=== PATIENT | male | born 1965 | race Caucasian/White ===

== ENCOUNTER → 2016-12-20 | Outpatient (CLI) | payer OTHER ==
--- NOTE | 2016-12-20 10:48 | Diagnostic Imaging Report ---
INDICATION: Knee pain COMPARISON: 01/03/2014 FINDINGS: 3 views of the right knee are obtained. No acute fracture, malalignment or osseous destructive process is seen. Joint spaces are preserved. There is minimal tricompartmental marginal spurring. The soft tissues appear unremarkable. IMPRESSION: Minimal degenerative changes. No acute abnormality is demonstrated. Dictated by: Dictated on workstation # [id number]
== END ==
LOC: RAD 09:21
PROVIDERS: ATTEND Pediatrics Neonatal-Perinatal Medicine
DX: Z02.71 Encounter for disability determination (principal); M25.561 Pain in right knee; E66.01 Morbid (severe) obesity due to excess calories
CPT/HCPCS: 73560

== ENCOUNTER 2019-09-08 11:41 | Emergency (ER) | payer SELFPAY ==
[~2019-09-08] VITALS: Ht 177 cm; Wt 136.0 kg
[2019-09-08 13:05] LABS: BILIRUBIN,URINE NEGATIVE (NEGATIVE); CLARITY,URINE CLEAR; COLOR,URINE YELLOW; GLUCOSE, URINE (UA) 3+ (NEGATIVE); KETONES,URINE 1+ (NEGATIVE); LEUKOCYTE ESTERASE ,URINE NEGATIVE (NEGATIVE); NITRITE,URINE NEGATIVE (NEGATIVE); PROTEIN,URINE NEGATIVE (NEGATIVE)
[2019-09-08 13:17] LABS: BACTERIA,URINE NEGATIVE /HPF; RBC,URINE RARE /HPF
[2019-09-08] MEDS ORDERED: NS IV 1000 ML 1,000 ML IV SCH (14:09)
[2019-09-08] MEDS ORDERED: inSUlin (REGULAR) HUMAN 1 UNIT/0.01 ML (CHARGE PER UNIT) SC STA (14:09)
[2019-09-08 14:31] LABS: BASOPHILS % (AUTO) 0 % (0-10); EOSINOPHILS # (AUTO) 0.1 10^3/uL (0.0-0.3); EOSINOPHILS % (AUTO) 0 % (0-10); HEMATOCRIT 44 % (40-54); HEMOGLOBIN 15.5 G/DL (13.3-17.7); LYMPHOCYTES # (AUTO) 1.8 X 10^3 (1.0-4.0); LYMPHOCYTES % (AUTO) 15 % (12-44); MEAN CORPUSCULAR HEMOGLOBIN 32 PG (25-34); MEAN CORPUSCULAR HGB CONC 35 G/DL (32-36); MEAN CORPUSCULAR VOLUME 91 FL (80-99); MEAN PLATELET VOLUME 11.3 FL (7.4-10.4); MONOCYTES # (AUTO) 0.7 X 10^3 (0.0-1.0); MONOCYTES % (AUTO) 6 % (0-12); NEUTROPHILS % (AUTO) 78 % (42-75); PLATELET COUNT 150 10^3/uL (130-400); RED CELL DISTRIBUTION WIDTH 12.1 % (10.0-14.5); WHITE BLOOD COUNT 11.6 10^3/uL (4.3-11.0)
[2019-09-08 14:50] LABS: ALBUMIN 4.2 GM/DL (3.2-4.5); CALCIUM 9.3 MG/DL (8.5-10.1); CREATININE SERUM 1.31 MG/DL (0.60-1.30); POTASSIUM 5.3 MMOL/L (3.6-5.0); TOTAL PROTEIN 7.9 GM/DL (6.4-8.2)
[2019-09-08 15:41] VITALS: BP 180/110
--- NOTE | 2019-09-08 15:46 | ED GU-Male ---
General Chief Complaint: - Urinary Stated Complaint: LOST CONTROL OF BLADDER Nursing Triage Note: THE PT IS AMBULATORY TO THE ROOM WITHOUT DIFFICULTY. NO DISTRESS IS SEEN ON ARRIVAL. LOC IS NORMAL FOR THE PT. THE PT C/O THE PAST FIVE DAY'S LOSS OF BLADDER CONTROLE. History of Present Illness Date Seen by Provider: Sep 08, 2019 Time Seen by Provider: 13:20 Initial Comments 53-year-old male presents for polyuria with incontinence, the patient also experienced polydipsia. He was diagnosed prediabetes, and he does take metformin daily, however he stopped taking it when his urinary symptoms presented 3-4 days ago. No hx of DKA or insulin use. He is trying to switch his care to the [facility] in [place]. He does not have a glucometer. He has been drinking more fruit juices, in the last 2 days. No history of prostate problems. Timing/Duration: getting worse Severity/Quality: mild Modifying Factors: Improves With Urinating Associated Symptoms: denies symptoms; No abdominal pain, No diaphoresis, No dysuria, No fever/chills, No loss of bladder control, No lower back pain, No lumps, No mass, No nausea/vomiting, No nocturia, No polyuria, No swelling, No syncope, No urinary frequency, No other Allergies and Home Medications Allergies Coded Allergies: No Known Drug Allergies (Unverified , 09/08/19) Patient Home Medication List Home Medication List Reviewed: Yes Review of Systems Review of Systems Constitutional: no symptoms reported, see HPI Gastrointestinal: no symptoms reported, see HPI; No loss of appetite Genitourinary: see HPI, frequency All Other Systemes Reviewed Negative Unless Noted: Yes Past Ufhybjd-Wqasef-Ijqlgm Hx Past Med/Social Hx: Reviewed Nursing Past Med/Soc Hx Patient Social History Recent Foreign Travel: No Contact w/Someone Who Travel: No Recent Infectious Disease Expo: No Physical Abuse: No Sexual Abuse: No Mistreated: No Fear: No Physical Exam Vital Signs Vital Signs - First Documented 09/08/19 09/08/19 13:02 15:41 Temp 36.8 Pulse 108 Resp 18 B/P (MAP) 183/110 (134) Pulse Ox 96 Capillary Refill : Less Than 3 Seconds Height, Weight, BMI Height: '" Weight: lbs. oz. kg; 43.00 BMI Method: General Appearance: WD/WN, no apparent distress, obese HEENT: PERRL/EOMI, normal ENT inspection, TMs normal, pharynx normal Neck: non-tender, full range of motion, supple, normal inspection Cardiovascular: normal peripheral pulses, regular rate, rhythm Respiratory: chest non-tender, lungs clear, normal breath sounds Gastrointestinal: normal bowel sounds, non tender, soft Neurologic/Psychiatric: no motor/sensory deficits, alert, normal mood/affect, oriented x 3 Skin: normal color, warm/dry Progress/Results/Core Measures Suspected Sepsis Recent Fever Within 48 Hours: No Infection Criteria Present: None New/Unexplained Altered Menta: No Sepsis Screen: No Definite Risk SIRS Temperature: Pulse: 108 Respiratory Rate: 18 Laboratory Tests 09/08/19 14:25: White Blood Count 11.6H Blood Pressure 183 /110 Mean: 134 Laboratory Tests 09/08/19 14:25: Creatinine 1.31H, Platelet Count 150, Total Bilirubin 1.0 Results/Orders Lab Results Laboratory Tests Test 09/08/19 12:52 09/08/19 13:49 09/08/19 14:25 09/08/19 15:29 Range/Units Urine Color YELLOW Urine Clarity CLEAR Urine pH 6.0 5-9 Urine Specific [place] <=1.005 1.016-1.022 Urine Protein NEGATIVE NEGATIVE Urine Glucose (UA) 3+ H NEGATIVE Urine Ketones 1+ H NEGATIVE Urine Nitrite NEGATIVE NEGATIVE Urine Bilirubin NEGATIVE NEGATIVE Urine Urobilinogen 0.2 < = 1.0 MG/DL Urine Leukocyte Esterase NEGATIVE NEGATIVE Urine RBC (Auto) NEGATIVE NEGATIVE Urine RBC RARE /HPF Urine WBC NONE /HPF Urine Squamous Epithelial Cells NONE /HPF Urine Crystals NONE /LPF Urine Bacteria NEGATIVE /HPF Urine Casts NONE /LPF Urine Mucus NEGATIVE /LPF Urine Culture Indicated NO Glucometer > 600 *H 567 *H 70-110 MG/DL White Blood Count 11.6 H 4.3-11.0 10^3/uL Red Blood Count 4.85 4.35-5.85 10^6/uL Hemoglobin 15.5 13.3-17.7 G/DL Hematocrit 44 40-54 % Mean Corpuscular Volume 91 80-99 FL Mean Corpuscular Hemoglobin 32 25-34 PG Mean Corpuscular Hemoglobin Concent 35 32-36 G/DL Red Cell Distribution Width 12.1 10.0-14.5 % Platelet Count 150 130-400 10^3/uL Mean Platelet Volume 11.3 H 7.4-10.4 FL Neutrophils (%) (Auto) 78 H 42-75 % Lymphocytes (%) (Auto) 15 12-44 % Monocytes (%) (Auto) 6 0-12 % Eosinophils (%) (Auto) 0 0-10 % Basophils (%) (Auto) 0 0-10 % Neutrophils # (Auto) 9.0 H 1.8-7.8 X 10^3 Lymphocytes # (Auto) 1.8 1.0-4.0 X 10^3 Monocytes # (Auto) 0.7 0.0-1.0 X 10^3 Eosinophils # (Auto) 0.1 0.0-0.3 10^3/uL Basophils # (Auto) 0.0 0.0-0.1 10^3/uL Sodium Level 118 *L 135-145 MMOL/L Potassium Level 5.3 H 3.6-5.0 MMOL/L Chloride Level 85 L 98-107 MMOL/L Carbon Dioxide Level 18 L 21-32 MMOL/L Anion Gap 15 H 5-14 MMOL/L Blood Urea Nitrogen 18 7-18 MG/DL Creatinine 1.31 H 0.60-1.30 MG/DL Estimat Glomerular Filtration Rate 57 BUN/Creatinine Ratio 14 Glucose Level 728 *H 70-105 MG/DL Calcium Level 9.3 8.5-10.1 MG/DL Corrected Calcium 9.1 8.5-10.1 MG/DL Total Bilirubin 1.0 0.1-1.0 MG/DL Aspartate Amino Transf (AST/SGOT) 24 5-34 U/L Alanine Aminotransferase (ALT/SGPT) 33 0-55 U/L Alkaline Phosphatase 77 40-136 U/L Total Protein 7.9 6.4-8.2 GM/DL Albumin 4.2 3.2-4.5 GM/DL My Orders Orders - LUIS ANTONIO VALENTINE Ua Culture If Indicated (09/08/19 12:10) Accucheck Stat ONCE (09/08/19 13:46) Cbc With Automated Diff (09/08/19 14:09) Comprehensive Metabolic Panel (09/08/19 14:09) Ed Iv/Invasive Line Start (09/08/19 14:09) Ns Iv 1000 Ml (Sodium Chloride 0.9%) (09/08/19 14:09) Insulin (Regular) Human (Humulin R (Per (09/08/19 14:09) Accucheck Stat ONCE (09/08/19 15:19) Vital Signs/I&O 09/08/19 09/08/19 13:02 15:41 Temp 36.8 36.5 Pulse 108 100 Resp 18 18 B/P (MAP) 183/110 (134) 180/110 Pulse Ox 96 Capillary Refill : Less Than 3 Seconds Blood Pressure Mean: 134 Point of Care Testing Finger Stick Blood Glucose: 567 Blood Glucose Action Taken: rn notified Progress Note : Time: 13:20 Progress Note Patient seen and evaluated, will obtain UA and reevaluate. 1400 Accucheck > 600.Will obtain CBC, CMP and NS 1 L per IV. 1430 Glucose 728, continues to urinate every 20-30 min, requesting ice or water. Will give Regular Insulin 10 Units 1515 patient reports to be feeling better, less urination. Accucheck 567. Spoke with patient about needing to resume his Metformin and follow up early next week to obtain glucometer and adjust management of DM. 1530 discharge instructions and return precautions reviewed with patient. Dietary changes, fruit juices discouraged. Departure Impression Primary Impression: Hyperglycemia Disposition: HOME, SELF-CARE Condition: Stable Departure-Patient Inst. Decision time for Depature: 15:30 Referrals: CYRUS PULIDO MD (PCP/Family) Primary Care Physician Patient Instructions: Diabetes and Diet, Hyperglycemia, Adult (DC) Add. Discharge Instructions: Reviewed the your metformin, start taking one tablet twice daily. Limit all high sugar products, fruit juices, and stick to a low-carb low sugar diet. Drink 16 ounces of water every 2 hours while awake. [facility] Return to the emergency department for new, urgent health care needs. All discharge instructions reviewed with patient and/or family. Voiced understanding. LUIS ANTONIO VALENTINE Sep 08, 2019 15:45
== END 2019-09-08 16:02 | disposition home or self-care (01) ==
LOC: EDUNIT# 11:41 → ER 11:43
DX: R73.03 Prediabetes (principal); Z79.84 Long term (current) use of oral hypoglycemic drugs; Z91.14 Patient's other noncompliance with medication regimen
CPT/HCPCS: 36415; 80053; 81000; 82962; 85025; 96372

== ENCOUNTER 2019-09-25 18:38 | Emergency (ER) | payer SELFPAY ==
[~2019-09-25] VITALS: Ht 177.8 cm; Wt 140.0 kg
[2019-09-25 18:46] VITALS: BP 165/104
--- NOTE | 2019-09-25 19:10 | ED General ---
General Chief Complaint: Glucose Problems Stated Complaint: HIGH BS LEVELS Nursing Triage Note: PT AMBULATE TO ROOM 06 WITH C/O HYPERGLYCEMIA. PT STATES HIS HOME METER WOULD NOT READ BECAUSE GLUCOSE WAS TOO HIGH. PT STATES HE HAD LUNCH AT [facility]. Nursing Sepsis Screen: No Definite Risk Source of Information: Patient Exam Limitations: No Limitations History of Present Illness Date Seen by Provider: Sep 25, 2019 Time Seen by Provider: 19:08 Initial Comments To ER with hyperglycemia. Recently diagnosed with diabetes, blood sugar at home was found to be over 600 according his machine. 2 readings here have been consistently in the 250-70 range. He has no symptoms was just concerned about the numbers. Timing/Duration: 1/2 Hour Severity: Mild Associated Systoms: Denies Symptoms Allergies and Home Medications Allergies Coded Allergies: No Known Drug Allergies (Unverified , 09/08/19) Patient Home Medication List Home Medication List Reviewed: Yes Review of Systems Review of Systems Constitutional: see HPI EENTM: see HPI Respiratory: no symptoms reported Cardiovascular: no symptoms reported Genitourinary: no symptoms reported Musculoskeletal: no symptoms reported Skin: no symptoms reported Psychiatric/Neurological: No Symptoms Reported Hematologic/Lymphatic: No Symptoms Reported Immunological/Allergic: no symptoms reported Past Wnmomds-Khasqa-Zjbwtv Hx Patient Social History Alcohol Use: Rarely Uses Recreational Drug Use: Yes Drug of Choice: POT Smoking Status: Current Everyday Smoker 2nd Hand Smoke Exposure: Yes Recent Foreign Travel: No Contact w/Someone Who Travel: No Recent Infectious Disease Expo: No Recent Hopitalizations: No Physical Abuse: No Sexual Abuse: No Mistreated: No Fear: No Seasonal Allergies Seasonal Allergies: Yes Past Medical History Surgeries: Yes (RIGHT KNEE X3) Appendectomy, Orthopedic Respiratory: No Cardiac: Yes Heart Attack Neurological: No Sexually Transmitted Disease: No HIV/AIDS: No Genitourinary: No Gastrointestinal: Yes Hepatitis Musculoskeletal: Yes Arthritis, Fractures Endocrine: Yes Diabetes, Insulin dep, Hypothyroidsim HEENT: No Loss of Vision: Denies Hearing Impairment: Denies Cancer: No Psychosocial: Yes Anxiety Integumentary: No Blood Disorders: No Physical Exam Vital Signs Vital Signs - First Documented 09/25/19 18:46 Temp 36.4 Pulse 101 Resp 18 B/P (MAP) 165/104 (124) O2 Delivery Room Air Capillary Refill : Less Than 3 Seconds Height, Weight, BMI Height: '" Weight: lbs. oz. kg; 44.00 BMI Method: General Appearance: No Apparent Distress, WD/WN Eyes: Bilateral Eye Normal Inspection, Bilateral Eye PERRL, Bilateral Eye EOMI HEENT: PERRL/EOMI, TMs Normal Respiratory: No Accessory Muscle Use, No Respiratory Distress Cardiovascular: Regular Rate, Rhythm, Normal Peripheral Pulses Gastrointestinal: Normal Bowel Sounds, Non Tender, Soft Extremity: Normal Capillary Refill, Normal Inspection Neurologic/Psychiatric: Alert, Oriented x3 Progress/Results/Core Measures Suspected Sepsis Recent Fever Within 48 Hours: No Infection Criteria Present: None New/Unexplained Altered Menta: No Sepsis Screen: No Definite Risk SIRS Temperature: Pulse: 101 Respiratory Rate: 18 Blood Pressure 165 /104 Mean: 124 Results/Orders Lab Results Laboratory Tests Test 09/25/19 18:49 Range/Units Glucometer 285 H 70-110 MG/DL Vital Signs/I&O 09/25/19 18:46 Temp 36.4 Pulse 101 Resp 18 B/P (MAP) 165/104 (124) O2 Delivery Room Air Capillary Refill : Less Than 3 Seconds Blood Pressure Mean: 124 Point of Care Testing Finger Stick Blood Glucose: 285 Blood Glucose Action Taken: rn notified Departure Impression Primary Impression: Diabetes Qualified Codes: E11.69 - Type 2 diabetes mellitus with other specified complication; Z79.4 - lobsterman (current) use of insulin Disposition: 01 HOME, SELF-CARE Condition: Stable Departure-Patient Inst. Decision time for Depature: 19:09 Referrals: CYRUS PULIDO MD (PCP/Family) Primary Care Physician Patient Instructions: Diabetes Type 2 (DC) Add. Discharge Instructions: All discharge instructions reviewed with patient and/or family. Voiced understanding. GRISELDA MORALES APRN Sep 25, 2019 19:09
--- OUTSIDE RECORDS SUMMARY | 2019-10-01 04:57 | XMS REPORT ---
Author Author Mike Valentino Organization [facility] Address [address] [place] [address] Care Team Providers Care Cow Washer Name Role Phone RHETT Valentino Unavailable PROBLEMS Type Condition ICD9-CM Code ROV65-JA Code Onset Dates Condition S tatus SNOMED Code Problem Anxiety disorder, unspecified F41.9 Active 023398062 Problem Hypothyroidism, unspecified E03.9 Ac tive 80142492 Problem Allergic rhinitis J30.9 Active 61 681004 Problem Hyperlipidemia, unspecified hyperlipidemia type E7 8.5 Active 68644471 Problem Chronic hepatitis C without hepatic coma B18.2 Active 117872014 Problem Type 2 diabetes mellitus without complications E11 .9 Active 166127202 Problem Essential hypertension I10 Active 07185356 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 Active 050983649 Problem Obesity E66.9 Active 384953311 Problem Reactive depression F32.9 Active 97476976 Problem Carpal tunnel syndrome of right wrist G56.01 Active 737110347627006 Problem Type 2 diabetes mellitus wit hout complication, without long-term current use of insulin E11.9 Active 333508946 Problem Type 2 diabetes mellitus wit hout complication, without long-term current use of insulin E11.9 Active 779611217 ALLERGIES No Information ENCOUNTERS Encounter Location Date Diagnosis [place] [id number] [place] [address] Aug, Type 2 diabetes mellitus without complic ations E11.9 and 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 [place] [address] [address] 18 Aug, 2019 Type 2 diabetes mellitus without complic ation, without long-term current use of insulin E11.9 [place] [address] [address] 14 Aug, 2019 Essential hypertension I10 and Hypothyro idism, unspecified E03.9 [facility] [address] [id number] [place] [address] 13 Aug, 2019 [facility] [address] [facility] [place] [address] Jun, [facility] [address] [address] Apr, [place] [address] [place] [id number] [place] [address] Mar, Essential hypertension I10 ; Hypothyroid ism, unspecified E03.9 ; Prediabetes R73.03 ; Allergic rhinitis J30.9 and Type 2 diabetes mellitus without complication, without long-term current use of insulin E11.9 [facility] [address] [facility] [place] [id number] Jan, Dental examination Z01.20 and Caries K02 .9 [facility] [place] [id number] [place] [address] Aug, BMI 45.0-49.9, adult Z68.42 ; Chest congestion R09.89 ; Acute URI J06.9 and Morbid obesity E66.01 [facility] [place] [id number] [place] [address] Jul, Cough due to bronchospasm J9 8.01 ; Shortness of breath R06.02 ; Obesity E66.9 and Acute bronchitis, viral J20.8 [facility] [place] [id number] [place] [address] Jul, [place] [id number] [place] [address] Apr, [place] [address] [address] Feb, Elevated glucose R73.09 ; Carpal tunnel syndrome of right wrist G56.01 ; Prediabetes R73.03 and BMI 40.0-44.9, adult Z68.41 [place] [id number] [address] Oct, Essential hypertension I10 ; Hypothyroid ism, unspecified E03.9 and Dysfunction of left eustachian tube H69.82 [place] [address] [address] Sep, Chronic hepatitis C without hepatic coma B18.2 and Hypothyroidism, unspecified E03.9 [place] [address] [address] Sep, Hypothyroidism, unspecified E03.9 [place] [address] [address] May, Chronic hepatitis C without hepatic coma B18.2 [place] [address] [address] May, [place] [address] [address] Apr, Hypothyroidism, unspecified E03.9 and Ch ronic hepatitis C without hepatic coma B18.2 [place] [address] [address] Apr, Chronic hepatitis C without hepatic coma B18.2 [place] [address] [address] Mar, Reactive depression F32.9 and Hypothyroi dism, unspecified E03.9 [place] [address] [address] Feb, Reactive depression F32.9 and Anxiety di sorder, unspecified F41.9 [place] [address] [address] Feb, Chronic hepatitis C without hepatic coma B18.2 [place] [address] [address] Jan, Chronic hepatitis C without hepatic coma B18.2 [place] [address] [address] November, Encounter for immunization Z23 and Chron ic hepatitis C without hepatic coma B18.2 [facility] [address] [address] November, [facility] [address] [address] Oct, Chronic hepatitis C without hepatic coma B18.2 [facility] [address] [address] Sep, [facility] [address] [address] Aug, Gastroenteritis K52.9 [facility] [address] [address] Aug, [facility] [address] [address] Aug, [facility] [address] [address] Aug, [facility] [address] [address] Aug, [facility] [address] [address] Jul, Encounter for immunization Z23 ; Sinus t achycardia R00.0 and Chronic hepatitis C without hepatic coma B18.2 [facility] [address] [address] Jun, Chronic hepatitis C without hepatic coma B18.2 [facility] [address] [address] Jun, Chronic hepatitis C without hepatic coma B18.2 [facility] [address] [address] May, Anxiety disorder, unspecified F41.9 [facility] [address] [address] May, Bronchitis J40 and Eustachian tube dysfu nction, bilateral H69.83 [place] [address] [address] May, Chronic hepatitis C without hepatic coma B18.2 [place] [address] [address] May, Chronic hepatitis C without hepatic coma B18.2 [place] [address] [address] May, [place] [address] [address] Apr, Abnormal LFTs R79.89 [place] [address] [address] 14 Apr, 2016 Abnormal LFTs R79.89 [place] [address] [address] Apr, Obesity E66.9 ; Hypothyroidism, unspecif ied E03.9 and Hyperlipidemia, unspecified hyperlipidemia type E78.5 [place] [address] [address] Apr, Obesity E66.9 ; Hypothyroidism, unspecif ied E03.9 and Hyperlipidemia, unspecified hyperlipidemia type E78.5 [place] [address] [address] Apr, Visit for TB skin test Z11.1 [place] [address] [address] November, Obesity E66.9 [place] [address] [address] Oct, Obesity E66.9 [place] [address] [address] Oct, Essential hypertension I10 ; Hypothyroid ism, unspecified E03.9 and Obesity E66.9 [place] [address] [address] Jun, [place] [address] [address] May, Essential hypertension I10 ; Allergic rh initis J30.9 ; Hypothyroidism, unspecified E03.9 and Otitis media, unspecified, bilateral H66.93 [place] [address] [address] May, Unspecified hypothyroidism 244.9 and Scr eening for hypertension V81.1 [place] [address] [address] May, [address] [address] Apr, Hypothyroidism, unspecified E03.9 and An xiety disorder, unspecified F41.[address] [address] Feb, Essential hypertension, benign 401.[address] [address] Feb, Unspecified hypothyroidism 244.9 and Scr eening for hypertension V81.[address] [address] Feb, Essential hypertension, benign 401.1 ; A nxiety state, unspecified 300.00 and Rash of groin 782.[address] [address] Feb, [address] [address] Dec, Essential hypertension, benign 401.1 ; A nxiety state, unspecified 300.00 and Rash of groin 782.[address] [address] November, [address] [address] Oct, [place] [id number] Oct, [facility] [address] [id number] [place] [address] Sep, [facility] [address] [id number] [place] [address] Sep, [facility] [address] [id number] [place] [address] Aug, [facility] [address] [id number] [place] [address] Aug, [facility] [address] [id number] [place] [address] Jul, [facility] [address] [id number] [place] [address] Jul, [facility] [id number] [place] [address] Jun, [facility] [id number] [place] [address] Jun, [facility] [address] [id number] [place] [address] Jun, [facility] [id number] [place] [address] Jun, [facility] [address] [id number] [place] [address] Jun, [facility] [id number] [place] [address] Jun, [facility] [address] [id number] [place] [address] Jun, [facility] [id number] [place] [address] Jun, [facility] [address] [id number] [place] [address] May, [facility] [id number] [place] [address] May, [facility] [address] [id number] [place] [address] Feb, [facility] [address] [facility] [id number] [place] [address] Feb, [facility] [address] [facility] [id number] [place] [address] Feb, [facility] [address] [id number] [place] [address] Feb, [facility] [address] [facility] [id number] [place] [address] Feb, [facility] [address] [id number] [place] [address] Feb, [facility] [address] [id number] [place] [address] Feb, [facility] [address] [id number] [place] [address] Feb, [facility] [address] [id number] [place] [address] Feb, [facility] [address] [facility] [id number] [place] [address] Feb, [facility] [address] [id number] [place] [address] Feb, [facility] [address] [id number] [place] [address] Feb, [facility] [address] [facility] [id number] [place] [address] Jan, [facility] [address] [id number] [place] [address] Jan, [facility] [address] [id number] [place] [address] Jan, [facility] [address] [id number] [place] [address] Jan, [facility] [address] [id number] [place] [address] Dec, [facility] [address] [facility] [id number] [place] [address] Dec, [facility] [address] [facility] [id number] [place] [address] Oct, [facility] [address] [facility] [id number] [place] [address] Oct, [facility] [address] [id number] [place] [address] Oct, [facility] [address] [facility] [id number] [place] [address] Oct, [facility] [address] [id number] [place] [address] Oct, [facility] [address] [id number] [place] [address] Oct, [facility] [address] [id number] [place] [address] Oct, [facility] [address] [facility] [id number] [place] [address] Aug, [facility] [address] [id number] [place] [address] Aug, [facility] [address] [id number] [place] [address] Jul, [facility] [address] [id number] [place] [address] Jul, [facility] [address] [id number] [place] [address] Jul, [facility] [address] [id number] [place] [address] Jul, [facility] [address] [id number] [place] [address] Jun, [facility] [address] [id number] [place] [address] Jun, [facility] [address] [facility] [place] [address] May, [facility] [address] [id number] [place] [address] May, [facility] [address] [id number] [place] [address] May, [facility] [address] [id number] [place] [address] Oct, [facility] [address] [facility] [place] [address] Oct, IMMUNIZATIONS No Known Immunizations SOCIAL HISTORY Never Assessed REASON FOR VISIT PLAN OF CARE VITAL SIGNS MEDICATIONS No Known Medications RESULTS No Results PROCEDURES No Known procedures INSTRUCTIONS MEDICATIONS ADMINISTERED No Known Medications MEDICAL (GENERAL) HISTORY Type Description Date Medical History Hearing loss Medical History Acid reflux Medical History Inguinal hernia at -1965 Medical History Depression Medical History HTN Medical History ANXIETY Medical History diabetes Surgical History Left ear surgery Surgical History Appendectomy Surgical History Left knee ACL/MCL repair Surgical History HERNIA SURGERY
--- OUTSIDE RECORDS SUMMARY | 2019-10-01 04:58 | XMS REPORT ---
Author Author Mike Valentino Organization [facility] [place] Address [address] [place] [address] Care Team Providers Care Cigar Brander Name Role Phone RHETT Valentino Unavailable PROBLEMS Type Condition ICD9-CM Code ZHB29-YG Code Onset Dates Condition S tatus SNOMED Code Problem Hypothyroidism, unspecified E03.9 Ac tive 76828821 Problem Obesity E66.9 Active 553947847 Problem Essential hypertension I10 Active 23619192 Problem Prediabetes R73.03 Active 30367897 2 Problem Anxiety disorder, unspecified F41.9 Active 402257539 Problem Carpal tunnel syndrome of right wrist G56.01 Active [id number] Problem Allergic rhinitis J30.9 Active 61 636369 Problem Hyperlipidemia, unspecified hyperlipidemia type E7 8.5 Active 42485877 Problem Chronic hepatitis C without hepatic coma B18.2 Active 593087015 Problem Reactive depression F32.9 Active 44931169 ALLERGIES No Information ENCOUNTERS Encounter Location Date Diagnosis [facility] [place] [address] [id number] [address] [place] [id number] Feb, [facility] [address] [id number] [address] [place] [address] [id number] Jan, Dental examination Z01.20 an d Caries K02.9 [facility] [address] [facility] [id number] [address] [place] [address] Aug, BMI 45.0-49.9, adult Z68.42 ; Chest congestion R09.89 ; Acute URI J06.9 and Morbid obesity E66.01 [facility] [address] [facility] [id number] [address] [place] [address] Jul, Cough due to bronchospasm J9 8.01 ; Shortness of breath R06.02 ; Obesity E66.9 and Acute bronchitis, viral J20.8 [facility] [address] [facility] [id number] [address] [place] [address] Jul, [facility] [place] [address] [facility] [id number] [address] [place] [address] Apr, [facility] [place] [address] [facility] [id number] [address] [place] [address] Feb, Elevated glucose R73.09 ; Ca rpal tunnel syndrome of right wrist G56.01 ; Prediabetes R73.03 and BMI 40.0-44.9, adult Z68.41 [facility] [place] [address] [facility] [id number] [address] [place] [id number] Oct, Essential hypertension I10 ; Hypothyroidism, unspecified E03.9 and Dysfunction of left eustachian tube H69.82 [facility] [place] [address] [id number] [address] [place] [id number] Sep, Chronic hepatitis C without hepatic coma B18.2 and Hypothyroidism, unspecified E03.9 [facility] [place] [address] [id number] [address] [place] [address] Sep, Hypothyroidism, unspecified E03.9 [facility] [place] [address] [id number] [address] [place] [phone] May, Chronic hepatitis C without hepatic coma B18.2 [facility] [place] [address] [id number] [address] [place] [address] May, [facility] [place] [address] [id number] [address] [place] [address] Apr, Hypothyroidism, unspecified E03.9 and Chronic hepatitis C without hepatic coma B18.2 [facility] [place] [address] [facility] [id number] [address] [place] [address] Apr, Chronic hepatitis C without hepatic coma B18.2 [facility] [place] [address] [id number] [address] [place] [address] Mar, Reactive depression F32.9 an d Hypothyroidism, unspecified E03.9 [facility] [place] [address] [facility] [id number] [address] [place] [phone] Feb, Reactive depression F32.9 an d Anxiety disorder, unspecified F41.9 [facility] [place] [address] [facility] [id number] [address] [place] [address] Feb, Chronic hepatitis C without hepatic coma B18.2 [facility] [place] [address] [facility] [id number] [address] [place] [address] Jan, Chronic hepatitis C without hepatic coma B18.2 [facility] [place] [address] [facility] [id number] [address] [place] [phone] November, Encounter for immunization Z 23 and Chronic hepatitis C without hepatic coma B18.2 [facility] [place] [address] [id number] [address] [place] [phone] November, [facility] [place] [address] [facility] [id number] [address] [place] [id number] Oct, Chronic hepatitis C without hepatic coma B18.2 [facility] [place] [address] [facility] [id number] [address] [place] [phone] Sep, [facility] [place] [address] [id number] [address] [place] [address] Aug, Gastroenteritis K52.9 [facility] [place] [address] [facility] [id number] [address] [place] [address] Aug, [facility] [place] [address] [facility] [id number] [address] [place] [address] Aug, [facility] [place] [address] [facility] [id number] [address] [place] [phone] Aug, [facility] [place] [address] [facility] [id number] [address] [place] [address] Aug, [facility] [place] [address] [id number] [address] [place] [phone] Jul, Encounter for immunization Z 23 ; Sinus tachycardia R00.0 and Chronic hepatitis C without hepatic coma B18.2 [facility] [place] [address] [id number] [address] [place] [address] Jun, Chronic hepatitis C without hepatic coma B18.2 [facility] [place] [address] [facility] [id number] [address] [place] [address] Jun, Chronic hepatitis C without hepatic coma B18.2 [facility] [place] [address] [id number] [address] [place] [address] May, Anxiety disorder, unspecifie d F41.9 [facility] [place] [address] [address] May, Bronchitis J40 and Eustachia n tube dysfunction, bilateral H69.83 [place] [address] [id number] [address] [place] [address] May, Chronic hepatitis C without hepatic coma B18.2 [facility] [place] [address] [id number] [address] [place] [id number] May, Chronic hepatitis C without hepatic coma B18.2 [facility] [place] [address] [id number] [address] [place] [address] May, [facility] [place] [address] [id number] [address] [place] [address] Apr, Abnormal LFTs R79.89 [place] [address] [id number] [address] [place] [id number] 14 Apr, 2016 Abnormal LFTs R79.89 [facility] [place] [address] [id number] [address] [place] [id number] 11 Apr, 2016 Obesity E66.9 ; Hypothyroidi sm, unspecified E03.9 and Hyperlipidemia, unspecified hyperlipidemia type E78.5 [facility] [place] [address] [id number] [address] [place] [address] 10 Apr, 2016 Obesity E66.9 ; Hypothyroidi sm, unspecified E03.9 and Hyperlipidemia, unspecified hyperlipidemia type E78.5 [address] [address] [address] Apr, Visit for TB skin test Z11.1 [place] [address] [address] November, Obesity E66.9 [address] [address] [address] Oct, Obesity E66.9 [address] [address] [address] Oct, Essential hypertension I10 ; Hypothyroidism, unspecified E03.9 and Obesity E66.9 [address] [address] [address] Jun, [place] [address] [address] May, Essential hypertension I10 ; Allergic rhinitis J30.9 ; Hypothyroidism, unspecified E03.9 and Otitis media, unspecified, bilateral H66.93 [address] [address] [address] May, Unspecified hypothyroidism 2 44.9 and Screening for hypertension V81.1 [address] [address] [address] May, [address] [address] [address] Apr, Hypothyroidism, unspecified E03.9 and Anxiety disorder, unspecified F41.9 [address] [address] [address] Feb, Essential hypertension, humza gn 401.1 [address] [address] [address] Feb, Unspecified hypothyroidism 2 44.9 and Screening for hypertension V81.1 [address] [address] [id number] [address] [place] [address], [place] [address] Feb, Essential hypertension, humza gn 401.1 ; Anxiety state, unspecified 300.00 and Rash of groin 782.1 [facility] [place] [address] [id number] [address] [place] [address], [place] [address] Feb, [facility] [place] [address] [id number] [address] [place] [address] Dec, Essential hypertension, humza gn 401.1 ; Anxiety state, unspecified 300.00 and Rash of groin 782.1 [facility] [place] [address] [id number] [address] [place] [id number] November, [facility] [place] [address] [id number] [address] [place] [id number] Oct, [facility] [place] [address] [id number] [address] [place] [phone] Oct, [facility] [place] [address] [id number] [address] [place] [address] Sep, [facility] [place] [address] [id number] [address] [place] [address] Sep, [facility] [place] [address] [id number] [address] [place] [address] Aug, [facility] [place] [address] [id number] [address] [place] [address], [place] [address] Aug, [facility] [place] [address] [id number] [address] [place] [address] Jul, [facility] [place] [address] [id number] [address] [place] [id number] Jul, [facility] [place] [address] [id number] [address] [place] [address] Jun, [facility] [place] [address] [id number] [address] [place] [id number] Jun, [facility] [address] [id number] [facility] [place] [address] Jun, [facility] [address] [id number] [address] [place] [address], [place] [address] Jun, [facility] [address] [id number] [address] [place] [address], [place] [address] Jun, [facility] [address] [id number] [address] [place] [address], [place] [address] Jun, [facility] [address] [id number] [address] [place] [address], [place] [address] Jun, [facility] [address] [id number] [address] [place] [address], [place] [address] Jun, [facility] [address] [id number] [address] [place] [address], [place] [address] May, [facility] [address] [id number] [address] [place] [address], [place] [address] May, [facility] [address] [id number] [address] [place] [address], [place] [address] Feb, [facility] [address] [id number] [address] [place] [address], [place] [address] Feb, [facility] [address] [id number] [address] [place] [address], [place] [address] Feb, [facility] [address] [id number] [address] [place] [address], [place] [address] Feb, [facility] [address] [id number] [address] [place] [address], [place] [address] Feb, [facility] [address] [id number] [address] [place] [address], [place] [address] Feb[facility] [address] [id number] [address] [place] [address], [place] [address] Feb, [facility] [address] [id number] [address] [place] [address], [place] [address] Feb, [facility] [address] [id number] [address] [place] [address], [place] [address] Feb, [facility] [address] [id number] [address] [place] [address], [place] [address] Feb, [facility] [address] [id number] [address] [place] [address], [place] [address] Feb, [facility] [address] [id number] [address] [place] [address], [place] [address] Feb, [facility] [address] [id number] [address] [place] [address], [place] [address] Jan, [facility] [address] [id number] [address] [place] [address], [place] [address] Jan, [facility] [address] [id number] [address] [place] [address], [place] [address] Jan, [facility] [address] [id number] [address] [place] [address], [place] [address] Jan, [facility] [address] [id number] [address] [place] [address], [place] [address] Dec, [facility] [address] [id number] [address] [place] [address], [place] [address] Dec, [facility] [address] [id number] [address] [place] [address], [place] [address] Oct, [facility] [address] [id number] [address] [place] [address], [place] [address] Oct, [facility] [address] [id number] [address] [place] [address], [place] [address] Oct, [facility] [address] [id number] [address] [place] [address], [place] [address] Oct, [facility] [address] [id number] [address] [place] [address], [place] [address] Oct, [facility] [address] [id number] [address] [place] [address] Oct, [facility] [place] [address] [id number] [address] [place] [address] Oct, [facility] [place] [address] [id number] [address] [place] [address] Aug, [facility] [place] [address] [id number] [address] [place] [address] Aug, [facility] [place] [address] [id number] [address] [place] [address] Jul, [facility] [place] [address] [id number] [address] [place] [address] Jul, [facility] [place] [address] [id number] [address] [place] [address] Jul, [facility] [place] [address] [id number] [address] [place] [address] Jul, [facility] [place] [address] [id number] [address] [place] [address] Jun, [facility] [place] [address] [id number] [address] [place] [address] Jun, [facility] [place] [address] [id number] [address] [place] [address] May, [facility] [place] [address] [id number] [address] [place] [address] May, [facility] [place] [address] [id number] [address] [place] [address] May, [facility] [place] [address] [id number] [address] [place] [address] Oct, [facility] [place] [address] [id number] [address] [place] [address] Oct, IMMUNIZATIONS No Known Immunizations SOCIAL HISTORY Never Assessed REASON FOR VISIT PLAN OF CARE VITAL SIGNS MEDICATIONS Unknown Medications RESULTS No Results PROCEDURES No Known procedures INSTRUCTIONS MEDICATIONS ADMINISTERED No Known Medications MEDICAL (GENERAL) HISTORY Type Description Date Medical History Hearing loss Medical History Acid reflux Medical History Inguinal hernia at -1964 Medical History Depression Medical History HTN Medical History ANXIETY Surgical History Left ear surgery Surgical History Appendectomy Surgical History Left knee ACL/MCL repair Surgical History HERNIA SURGERY
--- OUTSIDE RECORDS SUMMARY | 2019-10-01 04:58 | XMS REPORT ---
Author Author Mike Valentino Organization [facility] Address [address] [place] [address] Care Team Providers Care Open Source Developer Name Role Phone HRETT Valentino Unavailable PROBLEMS Type Condition ICD9-CM Code [id number] Code Onset Dates Condition S tatus SNOMED Code Problem Hypothyroidism, unspecified E03.9 Ac tive 57963079 Problem Obesity E66.9 Active 269334296 Problem Essential hypertension I10 Active 01986458 Problem Prediabetes R73.03 Active 27488533 2 Problem Anxiety disorder, unspecified F41.9 Active 646543103 Problem Carpal tunnel syndrome of right wrist G56.01 Active 904219412452820 Problem Allergic rhinitis J30.9 Active 61 578941 Problem Hyperlipidemia, unspecified hyperlipidemia type E7 8.5 Active 81470713 Problem Chronic hepatitis C without hepatic coma B18.2 Active 941845939 Problem Reactive depression F32.9 Active 08130466 ALLERGIES No Information ENCOUNTERS Encounter Location Date Diagnosis [facility] [address] [id number] [address] [place] [id number] Feb, [facility] [address] [id number] [address] [place] [id number] Jan, Dental examination Z01.20 an d Caries K02.9 [facility] [address] [facility] [id number] [address] [place] [id number] Aug, BMI 45.0-49.9, adult Z68.42 ; Chest congestion R09.89 ; Acute URI J06.9 and Morbid obesity E66.01 [facility] [address] [facility] [id number] [address] [place] [id number] Jul, Cough due to bronchospasm J9 8.01 ; Shortness of breath R06.02 ; Obesity E66.9 and Acute bronchitis, viral J20.8 [facility] [address] [facility] [id number] [address] [place] [id number] Jul, [facility] [address] [facility] [id number] [address] [place] [id number] Apr, [facility] [address] [facility] [id number] [address] [place] [id number] Feb, Elevated glucose R73.09 ; Ca rpal tunnel syndrome of right wrist G56.01 ; Prediabetes R73.03 and BMI 40.0-44.9, adult Z68.41 [facility] [address] [facility] [id number] [address] [place] [phone] Oct, Essential hypertension I10 ; Hypothyroidism, unspecified E03.9 and Dysfunction of left eustachian tube H69.82 [facility] [address] [id number] [address] [place] [id number] Sep, Chronic hepatitis C without hepatic coma B18.2 and Hypothyroidism, unspecified E03.9 [facility] [address] [id number] [address] [place] [id number] Sep, Hypothyroidism, unspecified E03.9 [facility] [id number] [address] [place] [id number] May, Chronic hepatitis C without hepatic coma B18.2 [facility] [address] [id number] [address] [place] [phone] May, [facility] [id number] [address] [place] [id number] Apr, Hypothyroidism, unspecified E03.9 and Chronic hepatitis C without hepatic coma B18.2 [facility] [address] [facility] [id number] [address] [place] [id number] Apr, Chronic hepatitis C without hepatic coma B18.2 [facility] [id number] [address] [place] [id number] Mar, Reactive depression F32.9 an d Hypothyroidism, unspecified E03.9 [facility] [address] [facility] [id number] [address] [place] [id number] Feb, Reactive depression F32.9 an d Anxiety disorder, unspecified F41.9 [facility] [address] [facility] [id number] [address] [place] [id number] Feb, Chronic hepatitis C without hepatic coma B18.2 [facility] [address] [facility] [id number] [address] [place] [id number] Jan, Chronic hepatitis C without hepatic coma B18.2 [facility] [address] [facility] [id number] [address] [place] [id number] November, Encounter for immunization Z 23 and Chronic hepatitis C without hepatic coma B18.2 [facility] [id number] [place] [id number] November, [facility] [address] [facility] [id number] [address] [place] [id number] Oct, Chronic hepatitis C without hepatic coma B18.2 [facility] [address] [facility] [id number] [address] [place] [id number] Sep, [facility] [id number] [address] [place] [id number] Aug, Gastroenteritis K52.9 [facility] [address] [facility] [id number] [address] [place] [id number] Aug, [facility] [address] [facility] [id number] [address] [place] [id number] Aug, [facility] [address] [facility] [id number] [address] [place] [phone] Aug, [facility] [address] [facility] [id number] [address] [place] [id number] Aug, [facility] [id number] [address] [place] [id number] Jul, Encounter for immunization Z 23 ; Sinus tachycardia R00.0 and Chronic hepatitis C without hepatic coma B18.2 [facility] [id number] [place] [id number] Jun, Chronic hepatitis C without hepatic coma B18.2 [facility] [address] [facility] [id number] [address] [place] [id number] Jun, Chronic hepatitis C without hepatic coma B18.2 [facility] [id number] [address] [place] [id number] May, Anxiety disorder, unspecifie d F41.9 [facility] [address] [phone] May, Bronchitis J40 and Eustachia n tube dysfunction, bilateral H69.83 [place] [address] [id number] [address] [place] [address] May, Chronic hepatitis C without hepatic coma B18.2 [facility] [id number] [address] [place] [id number] May, Chronic hepatitis C without hepatic coma B18.2 [facility] [id number] [place] [phone] May, [facility] [id number] [address] [place] [address] Apr, Abnormal LFTs R79.89 [place] [id number] [address] [place] [id number] 14 Apr, 2016 Abnormal LFTs R79.89 [facility] [id number] [address] [place] [id number] 11 Apr, 2016 Obesity E66.9 ; Hypothyroidi sm, unspecified E03.9 and Hyperlipidemia, unspecified hyperlipidemia type E78.5 [facility] [id number] [place] [id number] 10 Apr, 2016 Obesity E66.9 ; Hypothyroidi sm, unspecified E03.9 and Hyperlipidemia, unspecified hyperlipidemia type E78.5 [place] [address] [id number] Apr, Visit for TB skin test Z11.1 [place] [address] [phone] November, Obesity E66.9 [place] [address] [id number] Oct, Obesity E66.9 [place] [address] [id number] Oct, Essential hypertension I10 ; Hypothyroidism, unspecified E03.9 and Obesity E66.9 [address] [place] [address] [address] Jun, [place] [address] [address] May, Essential hypertension I10 ; Allergic rhinitis J30.9 ; Hypothyroidism, unspecified E03.9 and Otitis media, unspecified, bilateral H66.93 [place] [address] [id number] May, Unspecified hypothyroidism 2 44.9 and Screening for hypertension V81.1 [place] [address] [address] May, [place] [address] [id number] Apr, Hypothyroidism, unspecified E03.9 and Anxiety disorder, unspecified F41.9 [place] [address] [address] Feb, Essential hypertension, humza gn 401.1 [place] [address] [address] Feb, Unspecified hypothyroidism 2 44.9 and Screening for hypertension V81.1 [place] [address] [id number] [address] [place] [address], [place] [address] Feb, Essential hypertension, humza gn 401.1 ; Anxiety state, unspecified 300.00 and Rash of groin 782.1 [facility] [address] [id number] [address] [place] [address], [place] [address] Feb, [facility] [address] [id number] [address] [place] [id number] Dec, Essential hypertension, humza gn 401.1 ; Anxiety state, unspecified 300.00 and Rash of groin 782.1 [facility] [address] [id number] [address] [place] [id number] November, [facility] [address] [id number] [address] [place] [id number] Oct, [facility] [address] [id number] [address] [place] [phone] Oct, [facility] [address] [id number] [address] [place] [id number] Sep, [facility] [address] [id number] [address] [place] [phone] Sep, [facility] [address] [id number] [address] [place] [id number] Aug, [facility] [address] [id number] [address] [place] [address], [place] [address] Aug, [facility] [address] [id number] [address] [place] [id number] Jul, [facility] [address] [id number] [address] [place] [id number] Jul, [facility] [address] [id number] [address] [place] [id number] Jun, [facility] [address] [id number] [address] [place] [phone] Jun, [facility] [address] [id number] [facility] [place] [address] Jun, [facility] [address] [id number] [address] [place] [address], [place] [address] Jun, [facility] [address] [id number] [address] [place] [address], [place] [address] Jun, [facility] [address] [id number] [address] [place] [address], [place] [address] Jun, [facility] [address] [id number] [address] [place] [address], [place] [address] Jun, [facility] [address] [id number] [address] [place] [address], [place] [address] Jun, [facility] [address] [id number] [address] [place] [address], [place] [address] May, [facility] [address] [id number] [address] [place] [address], [place] [address] May, [facility] [address] [id number] [address] [place] [address], [place] [address] Feb, [facility] [address] [id number] [address] [place] [address], [place] [id number] Feb, [facility] [address] [id number] [address] [place] [address], [place] [address] Feb, [facility] [address] [id number] [address] [place] [address], [place] [id number] Feb, [facility] [address] [id number] [address] [place] [address], [place] [address] Feb, [facility] [address] [id number] [address] [place] [address], [place] [address] Feb, [facility] [address] [id number] [address] [place] [address], [place] [id number] Feb, [facility] [address] [id number] [address] [place] [address], [place] [address] Feb, [facility] [address] [id number] [address] [place] [address], [place] [address] Feb, [facility] [address] [id number] [address] [place] [address], [place] [address] Feb, [facility] [address] [id number] [address] [place] [address], [place] [address] Feb, [facility] [address] [id number] [address] [place] [address], [place] [address] Feb, [facility] [address] [id number] [address] [place] [address], [place] [address] Jan, [facility] [address] [id number] [address] [place] [address], [place] [address] Jan, [facility] [address] [id number] [address] [place] [address], [place] [address] Jan, [facility] [address] [id number] [address] [place] [address], [place] [address] Jan, [facility] [address] [id number] [address] [place] [address], [place] [address] Dec, [facility] [address] [id number] [address] [place] [address], [place] [address] Dec, [facility] [address] [id number] [address] [place] [address], [place] [address] Oct, [facility] [address] [id number] [address] [place] [address], [place] [address] Oct, [facility] [address] [id number] [address] [place] [address], [place] [address] Oct, [facility] [address] [id number] [address] [place] [address], [place] [address] Oct, [facility] [address] [id number] [address] [place] [address], [place] [address] Oct, [facility] [address] [id number] [address] [place] [id number] Oct, [facility] [address] [id number] [address] [place] [id number] Oct, [facility] [address] [id number] [address] [place] [phone] Aug, [facility] [address] [id number] [address] [place] [id number] Aug, [facility] [address] [id number] [address] [place] [id number] Jul, [facility] [address] [id number] [address] [place] [id number] Jul, [facility] [address] [id number] [address] [place] [id number] Jul, [facility] [address] [id number] [address] [place] [phone] Jul, [facility] [address] [id number] [address] [place] [phone] Jun, [facility] [address] [id number] [address] [place] [id number] Jun, [facility] [address] [id number] [address] [place] [phone] May, [facility] [address] [id number] [address] [place] [phone] May, [facility] [address] [id number] [address] [place] [id number] May, [facility] [address] [id number] [address] [place] [phone] Oct, [facility] [address] [id number] [address] [place] [phone] Oct, IMMUNIZATIONS No Known Immunizations SOCIAL HISTORY [...]
--- OUTSIDE RECORDS SUMMARY | 2019-10-01 04:58 | XMS REPORT ---
Author Author Mike Valentino Organization [facility] Address [address] [place] [address] Care Team Providers Care Collection Systems Worker Name Role Phone RHETT Valentino Unavailable PROBLEMS Type Condition ICD9-CM Code SOQ07-OE Code Onset Dates Condition S tatus SNOMED Code Problem Hypothyroidism, unspecified E03.9 Ac tive 91959646 Problem Obesity E66.9 Active 702871973 Problem Essential hypertension I10 Active 48643635 Problem Prediabetes R73.03 Active 35705223 2 Problem Anxiety disorder, unspecified F41.9 Active 371779743 Problem Carpal tunnel syndrome of right wrist G56.01 Active 439397423698284 Problem Allergic rhinitis J30.9 Active 61 975358 Problem Hyperlipidemia, unspecified hyperlipidemia type E7 8.5 Active 82940160 Problem Chronic hepatitis C without hepatic coma B18.2 Active 266175602 Problem Reactive depression F32.9 Active [id number] ALLERGIES No Information ENCOUNTERS Encounter Location Date Diagnosis [facility] [address] [id number] [address] [place] [id number] Feb, [facility] [address] [id number] [address] [place] [id number] Jan, Dental examination Z01.20 an d Caries K02.9 [facility] [address] [facility] [id number] [address] [place] [id number] Aug, BMI 45.0-49.9, adult Z68.42 ; Chest congestion R09.89 ; Acute URI J06.9 and Morbid obesity E66.01 [facility] [address] [facility] [id number] [address] [place] [id number] Jul, Cough due to bronchospasm J9 8.01 ; Shortness of breath R06.02 ; Obesity E66.9 and Acute bronchitis, viral J20.8 [facility] [address] [facility] [id number] [address] [place] [id number] Jul, [facility] [address] [facility] [id number] [address] [place] [id number] Apr, [facility] [address] [facility] [id number] [address] [place] [id number] Feb, Elevated glucose R73.09 ; Ca rpal tunnel syndrome of right wrist G56.01 ; Prediabetes R73.03 and BMI 40.0-44.9, adult Z68.41 [facility] [address] [facility] [id number] [address] [place] [id number] Oct, Essential hypertension I10 ; Hypothyroidism, unspecified E03.9 and Dysfunction of left eustachian tube H69.82 [facility] [address] [id number] [address] [place] [id number] Sep, Chronic hepatitis C without hepatic coma B18.2 and Hypothyroidism, unspecified E03.9 [facility] [address] [id number] [address] [place] [id number] Sep, Hypothyroidism, unspecified E03.9 [facility] [address] [id number] [address] [place] [id number] May, Chronic hepatitis C without hepatic coma B18.2 [facility] [address] [id number] [address] [place] [id number] May, [facility] [address] [id number] [address] [place] [id number] Apr, Hypothyroidism, unspecified E03.9 and Chronic hepatitis C without hepatic coma B18.2 [facility] [address] [facility] [id number] [address] [place] [id number] Apr, Chronic hepatitis C without hepatic coma B18.2 [facility] [address] [id number] [address] [place] [id number] Mar, Reactive depression F32.9 an d Hypothyroidism, unspecified E03.9 [facility] [address] [facility] [id number] [address] [place] [id number] Feb, Reactive depression F32.9 an d Anxiety disorder, unspecified F41.9 [facility] [address] [facility] [id number] [address] [place] [id number] Feb, Chronic hepatitis C without hepatic coma B18.2 [facility] [address] [facility] [id number] [address] [place] [id number] Jan, Chronic hepatitis C without hepatic coma B18.2 [facility] [address] [facility] [id number] [address] [place] [id number] November, Encounter for immunization Z 23 and Chronic hepatitis C without hepatic coma B18.2 [facility] [address] [id number] [address] [place] [id number] November, [facility] [address] [facility] [id number] [address] [place] [id number] Oct, Chronic hepatitis C without hepatic coma B18.2 [facility] [address] [facility] [id number] [address] [place] [id number] Sep, [facility] [address] [id number] [address] [place] [id number] Aug, Gastroenteritis K52.9 [facility] [address] [facility] [id number] [address] [place] [id number] Aug, [facility] [address] [facility] [id number] [address] [place] [id number] Aug, [facility] [address] [facility] [id number] [address] [place] [id number] Aug, [facility] [address] [facility] [id number] [address] [place] [phone] Aug, [facility] [address] [id number] [address] [place] [id number] Jul, Encounter for immunization Z 23 ; Sinus tachycardia R00.0 and Chronic hepatitis C without hepatic coma B18.2 [facility] [address] [id number] [address] [place] [id number] Jun, Chronic hepatitis C without hepatic coma B18.2 [facility] [address] [facility] [id number] [address] [place] [id number] Jun, Chronic hepatitis C without hepatic coma B18.2 [facility] [address] [id number] [address] [place] [id number] May, Anxiety disorder, unspecifie d F41.9 [facility] [address] [id number] May, Bronchitis J40 and Eustachia n tube dysfunction, bilateral H69.83 [place] [address] [id number] [address] [place] [id number] May, Chronic hepatitis C without hepatic coma B18.2 [facility] [address] [id number] [address] [place] [id number] May, Chronic hepatitis C without hepatic coma B18.2 [facility] [address] [id number] [address] [place] [id number] May, [facility] [address] [id number] [address] [place] [id number] Apr, Abnormal LFTs R79.89 [place] [address] [id number] [address] [place] [id number] 14 Apr, 2016 Abnormal LFTs R79.89 [facility] [address] [id number] [address] [place] [id number] 11 Apr, 2016 Obesity E66.9 ; Hypothyroidi sm, unspecified E03.9 and Hyperlipidemia, unspecified hyperlipidemia type E78.5 [facility] [address] [id number] [address] [place] [id number] 10 Apr, 2016 Obesity E66.9 ; Hypothyroidi sm, unspecified E03.9 and Hyperlipidemia, unspecified hyperlipidemia type E78.5 [place] [address] [id number] Apr, Visit for TB skin test Z11.1 [place] [address] [address] November, Obesity E66.9 [place] [address] [id number] Oct, Obesity E66.9 [place] [address] [id number] Oct, Essential hypertension I10 ; Hypothyroidism, unspecified E03.9 and Obesity E66.9 [address] [address] [id number] Jun, [place] [address] [id number] May, Essential hypertension I10 ; Allergic rhinitis J30.9 ; Hypothyroidism, unspecified E03.9 and Otitis media, unspecified, bilateral H66.93 [address] [address] [id number] May, Unspecified hypothyroidism 2 44.9 and Screening for hypertension V81.1 [place] [address] [id number] May, [place] [address] [address] Apr, Hypothyroidism, unspecified E03.9 and Anxiety disorder, unspecified F41.9 [place] [address] [address] Feb, Essential hypertension, humza gn 401.1 [place] [address] [address] Feb, Unspecified hypothyroidism 2 44.9 and Screening for hypertension V81.1 [place] [address] [id number] [address] [place] [address], [place] [address] Feb, Essential hypertension, humza gn 401.1 ; Anxiety state, unspecified 300.00 and Rash of groin 782.1 [facility] [address] [id number] [address] [place] [address], [place] [address] Feb, [facility] [address] [id number] [address] [place] [id number] Dec, Essential hypertension, humza gn 401.1 ; Anxiety state, unspecified 300.00 and Rash of groin 782.1 [facility] [address] [id number] [address] [place] [id number] November, [facility] [address] [id number] [address] [place] [id number] Oct, [facility] [address] [id number] [address] [place] [id number] Oct, [facility] [address] [id number] [address] [place] [id number] Sep, [facility] [address] [id number] [address] [place] [id number] Sep, [facility] [address] [id number] [address] [place] [phone] Aug, [facility] [address] [id number] [address] [place] [address], [place] [id number] Aug, [facility] [address] [id number] [address] [place] [id number] Jul, [facility] [address] [id number] [address] [place] [id number] Jul, [facility] [address] [id number] [address] [place] [id number] Jun, [facility] [address] [id number] [address] [place] [phone] Jun, [facility] [address] [id number] [facility] [place] [address] Jun, [facility] [address] [id number] [address] [place] [address], [place] [id number] Jun, [facility] [address] [id number] [address] [place] [address], [place] [id number] Jun, [facility] [address] [id number] [address] [place] [address], [place] [address] Jun, [facility] [address] [id number] [address] [place] [address], [place] [id number] Jun, [facility] [address] [id number] [address] [place] [address], [place] [id number] Jun, [facility] [address] [id number] [address] [place] [address], [place] [id number] May, [facility] [address] [id number] [address] [place] [address], [place] [id number] May, [facility] [address] [id number] [address] [place] [address], [place] [id number] Feb, [facility] [address] [id number] [address] [place] [address], [place] [id number] Feb, [facility] [address] [id number] [address] [place] [address], [place] [id number] Feb, [facility] [address] [id number] [address] [place] [address], [place] [address] Feb, [facility] [address] [id number] [address] [place] [address], [place] [id number] Feb, [facility] [address] [id number] [address] [place] [address], [place] [address] Feb, [facility] [address] [id number] [address] [place] [address], [place] [id number] Feb, [facility] [address] [id number] [address] [place] [address], [place] [id number] Feb, [facility] [address] [id number] [address] [place] [address], [place] [address] Feb, [facility] [address] [id number] [address] [place] [address], [place] [address] Feb, [facility] [address] [id number] [address] [place] [address], [place] [id number] Feb, [facility] [address] [id number] [address] [place] [address], [place] [id number] Feb, [facility] [address] [id number] [address] [place] [address], [place] [id number] Jan, [facility] [address] [id number] [address] [place] [address], [place] [id number] Jan, [facility] [address] [id number] [address] [place] [address], [place] [id number] Jan, [facility] [address] [id number] [address] [place] [address], [place] [id number] Jan, [facility] [address] [id number] [address] [place] [address], [place] [id number] Dec, [facility] [address] [id number] [address] [place] [address], [place] [address] Dec, [facility] [address] [id number] [address] [place] [address], [place] [id number] Oct, [facility] [address] [id number] [address] [place] [address], [place] [id number] Oct, [facility] [address] [id number] [address] [place] [address], [place] [address] Oct, [facility] [address] [id number] [address] [place] [address], [place] [address] Oct, [facility] [address] [id number] [address] [place] [address], [place] [address] Oct, [facility] [address] [id number] [address] [place] [id number] Oct, [facility] [address] [id number] [address] [place] [id number] Oct, [facility] [address] [id number] [address] [place] [id number] Aug, [facility] [address] [id number] [address] [place] [id number] Aug, [facility] [address] [id number] [address] [place] [address], [place] [id number] Jul, [facility] [address] [id number] [address] [place] [address], [place] [id number] Jul, [facility] [address] [id number] [address] [place] [id number] Jul, [facility] [address] [id number] [address] [place] [id number] Jul, [facility] [address] [id number] [address] [place] [phone] Jun, [facility] [address] [id number] [address] [place] [id number] Jun, [facility] [address] [id number] [address] [place] [id number] May, [facility] [address] [id number] [address] [place] [phone] May, [facility] [address] [id number] [address] [place] [id number] May, [facility] [address] [id number] [address] [place] [id number] Oct, [facility] [address] [id number] [address] [place] [id number] Oct, IMMUNIZATIONS No Known Immunizations SOCIAL HISTORY Never Assessed REASON FOR VISIT PLAN OF CARE VITAL SIGNS Height 70 in 2014-03-14 Weight 287.1 lbs 2014-03-14 Temperature 97.6 degrees Fahrenheit 2014-03-14 Heart Rate 72 bpm 2014-03-14 Respiratory Rate 18 2014-03-14 Blood pressure systolic 138 mmHg 2014-03-14 Blood pressure diastolic 86 mmHg 2014-03-14 MEDICATIONS Unknown Medications RESULTS No Results PROCEDURES Procedure Date Ordered Result Body Site TEST FOR BLOOD, FECES Mar 14, 2014 INSTRUCTIONS MEDICATIONS ADMINISTERED No Known Medications MEDICAL (GENERAL) HISTORY Type Description Date Medical History Hearing loss Medical History Acid reflux Medical History Inguinal hernia at -1965 Medical History Depression Medical History HTN Medical History ANXIETY Surgical History Left ear surgery Surgical History Appendectomy Surgical History Left knee ACL/MCL repair Surgical History HERNIA SURGERY
--- OUTSIDE RECORDS SUMMARY | 2019-10-01 04:58 | XMS REPORT ---
Author Author Mike Valentino Organization [facility] Address [address] [place] [address] Care Team Providers Care Junior Account Manager Name Role Phone RHETT Valentino Unavailable PROBLEMS Type Condition ICD9-CM Code [id number] Code Onset Dates Condition S tatus SNOMED Code Problem Hypothyroidism, unspecified E03.9 Ac tive 91318616 Problem Obesity E66.9 Active 754497747 Problem Essential hypertension I10 Active 80691127 Problem Prediabetes R73.03 Active 10615016 2 Problem Anxiety disorder, unspecified F41.9 Active 836513326 Problem Carpal tunnel syndrome of right wrist G56.01 Active 821559655326412 Problem Allergic rhinitis J30.9 Active 61 063903 Problem Hyperlipidemia, unspecified hyperlipidemia type E7 8.5 Active 82736372 Problem Chronic hepatitis C without hepatic coma B18.2 Active 915182403 Problem Reactive depression F32.9 Active 08784447 ALLERGIES No Information ENCOUNTERS Encounter Location Date Diagnosis [facility] [address] [facility] [id number] [address] [place] [id number] Jan, Dental examination Z01.20 an d Caries K02.9 [facility] [address] [id number] [address] [place] [address] Aug, BMI 45.0-49.9, adult Z68.42 ; Chest congestion R09.89 ; Acute URI J06.9 and Morbid obesity E66.01 [facility] [address] [id number] [address] [place] [address] Jul, Cough due to bronchospasm J9 8.01 ; Shortness of breath R06.02 ; Obesity E66.9 and Acute bronchitis, viral J20.8 [facility] [address] [id number] [address] [place] [address] Jul, [facility] [address] [id number] [address] [place] [address] Apr, [facility] [id number] [place] [address] Feb, Elevated glucose R73.09 ; Ca rpal tunnel syndrome of right wrist G56.01 ; Prediabetes R73.03 and BMI 40.0-44.9, adult Z68.41 [place] [address] [place] [address] [id number] [place] [address] Oct, Essential hypertension I10 ; Hypothyroidism, unspecified E03.9 and Dysfunction of left eustachian tube H69.82 [place] [address] [place] [id number] [place] [address] Sep, Chronic hepatitis C without hepatic coma B18.2 and Hypothyroidism, unspecified E03.9 [place] [address] [address] Sep, Hypothyroidism, unspecified E03.9 [place] [address] [place] [id number] [address] [place] [address] May, Chronic hepatitis C without hepatic coma B18.2 [place] [address] [place] [id number] [address] [place] [address] May, [place] [address] [place] [id number] [address] [place] [address] Apr, Hypothyroidism, unspecified E03.9 and Chronic hepatitis C without hepatic coma B18.2 [place] [address] [place] [id number] [place] [address] Apr, Chronic hepatitis C without hepatic coma B18.2 [place] [address] [place] [id number] [place] [address] Mar, Reactive depression F32.9 an d Hypothyroidism, unspecified E03.9 [place] [address] [place] [id number] [place] [address] Feb, Reactive depression F32.9 an d Anxiety disorder, unspecified F41.9 [facility] [address] [facility] [id number] [address] [place] [address] Feb, Chronic hepatitis C without hepatic coma B18.2 [facility] [address] [facility] [id number] [address] [place] [address] Jan, Chronic hepatitis C without hepatic coma B18.2 [facility] [address] [facility] [id number] [address] [place] [address] November, Encounter for immunization Z 23 and Chronic hepatitis C without hepatic coma B18.2 [facility] [address] [facility] [id number] [address] [place] [address] November, [facility] [address] [facility] [id number] [address] [place] [address] Oct, Chronic hepatitis C without hepatic coma B18.2 [facility] [address] [facility] [id number] [address] [place] [address] Sep, [facility] [address] [facility] [id number] [address] [place] [address] Aug, Gastroenteritis K52.9 [facility] [address] [facility] [id number] [address] [place] [address] Aug, [facility] [address] [facility] [id number] [address] [place] [address] Aug, [facility] [address] [facility] [id number] [address] [place] [address] Aug, [facility] [address] [facility] [id number] [address] [place] [address] Aug, [facility] [address] [facility] [id number] [address] [place] [address] Jul, Encounter for immunization Z 23 ; Sinus tachycardia R00.0 and Chronic hepatitis C without hepatic coma B18.2 [facility] [id number] [address] [place] [address] Jun, Chronic hepatitis C without hepatic coma B18.2 [facility] [address] [id number] [address] [place] [address] Jun, Chronic hepatitis C without hepatic coma B18.2 [facility] [address] [id number] [address] [place] [address] May, Anxiety disorder, unspecifie d F41.9 [facility] [address] [address] [id number] [address] [place] [address] May, Bronchitis J40 and Eustachia n tube dysfunction, bilateral H69.83 [place] [address] [place] [id number] [place] [address] May, Chronic hepatitis C without hepatic coma B18.2 [place] [address] [address] May, Chronic hepatitis C without hepatic coma B18.2 [place] [address] [place] [id number] [address] [place] [address] May, [place] [address] [place] [id number] [address] [place] [address] Apr, Abnormal LFTs R79.89 [place] [id number] [place] [address] 14 Apr, 2016 Abnormal LFTs R79.89 [place] [address] [place] [id number] [address] [place] [address] 11 Apr, 2016 Obesity E66.9 ; Hypothyroidi sm, unspecified E03.9 and Hyperlipidemia, unspecified hyperlipidemia type E78.5 [place] [address] [place] [id number] [address] [place] [address] 10 Apr, 2016 Obesity E66.9 ; Hypothyroidi sm, unspecified E03.9 and Hyperlipidemia, unspecified hyperlipidemia type E78.5 [place] [address] [place] [address] Apr, Visit for TB skin test Z11.1 [place] [address] [address] November, Obesity E66.9 [place] [address] [address] Oct, Obesity E66.9 [place] [address] [address] Oct, Essential hypertension I10 ; Hypothyroidism, unspecified E03.9 and Obesity E66.9 [place] [address] [address] Jun, [place] [address] [address] May, Essential hypertension I10 ; Allergic rhinitis J30.9 ; Hypothyroidism, unspecified E03.9 and Otitis media, unspecified, bilateral H66.93 [place] [address] [address] May, Unspecified hypothyroidism 2 44.9 and Screening for hypertension V81.1 [place] [address] [address] May, [place] [address] [address] Apr, Hypothyroidism, unspecified E03.9 and Anxiety disorder, unspecified F41.9 [place] [address] [address] Feb, Essential hypertension, humza gn 401.1 [place] [address] [address] Feb, Unspecified hypothyroidism 2 44.9 and Screening for hypertension V81.1 [place] [address] [address] Feb, Essential hypertension, humza gn 401.1 ; Anxiety state, unspecified 300.00 and Rash of groin 782.1 [facility] [address] [id number] [address] [place] [address], [place] [address] Feb, [facility] [address] [id number] [address] [place] [address] Dec, Essential hypertension, humza gn 401.1 ; Anxiety state, unspecified 300.00 and Rash of groin 782.1 [facility] [address] [id number] [address] [place] [address] November, [facility] [address] [id number] [address] [place] [address] Oct, [facility] [address] [id number] [address] [place] [id number] Oct, [facility] [address] [id number] [address] [place] [address] Sep, [facility] [address] [id number] [address] [place] [address] Sep, [facility] [address] [id number] [address] [place] [address] Aug, [facility] [address] [id number] [address] [place] [address] Aug, [facility] [address] [id number] [address] [place] [address] Jul, [facility] [address] [id number] [address] [place] [address] Jul, [facility] [address] [id number] [address] [place] [address] Jun, [facility] [address] [id number] [address] [place] [address] Jun, [facility] [address] [id number] [address] [place] [address] Jun, [facility] [address] [id number] [facility] [place] [address] Jun, [facility] [address] [id number] [address] [place] [address], [place] [address] Jun, [facility] [address] [id number] [address] [place] [address], [place] [address] Jun, [facility] [address] [id number] [address] [place] [address], [place] [address] Jun, [facility] [address] [id number] [address] [place] [address], [place] [address] Jun, [facility] [address] [id number] [address] [place] [address], [place] [address] May, [facility] [address] [id number] [address] [place] [address], [place] [address] May, [facility] [address] [id number] [address] [place] [address], [place] [address] Feb, [facility] [address] [id number] [address] [place] [address], [place] [address] Feb, [facility] [address] [id number] [address] [place] [address], [place] [address] Feb, [facility] [address] [id number] [address] [place] [address], [place] [address] Feb, [facility] [address] [id number] [address] [place] [address], [place] [address] Feb, [facility] [address] [id number] [address] [place] [address], [place] [address] Feb, [facility] [address] [id number] [address] [place] [address], [place] [address] Feb, [facility] [address] [id number] [address] [place] [address], [place] [address] Feb, [facility] [address] [id number] [address] [place] [address], [place] [address] Feb, [facility] [address] [id number] [address] [place] [address], [place] [address] Feb, [facility] [address] [id number] [address] [place] [address], [place] [address] Feb, [facility] [address] [id number] [address] [place] [address], [place] [address] Feb, [facility] [address] [id number] [address] [place] [address], [place] [address] Jan, [facility] [address] [id number] [address] [place] [address], [place] [address] Jan, [facility] [address] [id number] [address] [place] [address], [place] [address] Jan, [facility] [address] [id number] [address] [place] [address], [place] [address] Jan, [facility] [address] [id number] [address] [place] [address], [place] [address] Dec, [facility] [address] [id number] [address] [place] [address], [place] [address] Dec, [facility] [address] [id number] [address] [place] [address], [place] [address] Oct, [facility] [address] [id number] [address] [place] [address], [place] [address] Oct, [facility] [address] [id number] [address] [place] [address], [place] [address] Oct, [facility] [address] [id number] [address] [place] [address], [place] [address] Oct, [facility] [address] [id number] [address] [place] [address], [place] [address] Oct, [facility] [address] [id number] [address] [place] [address], [place] [address] Oct, [facility] [address] [id number] [address] [place] [address] Oct, [facility] [address] [id number] [address] [place] [address] Aug, [facility] [address] [id number] [address] [place] [address] Aug, [facility] [address] [id number] [address] [place] [address] Jul, [facility] [address] [id number] [address] [place] [address] Jul, [facility] [address] [id number] [address] [place] [address] Jul, [facility] [address] [id number] [address] [place] [address] Jul, [facility] [address] [id number] [address] [place] [address] Jun, [facility] [address] [id number] [address] [place] [address] Jun, [facility] [address] [id number] [address] [place] [address] May, [facility] [address] [id number] [address] [place] [address] May, [facility] [address] [id number] [address] [place] [address] May, [facility] [address] [id number] [address] [place] [address] Oct, [facility] [address] [id number] [address] [place] [address] Oct, IMMUNIZATIONS No Known Immunizations SOCIAL HISTORY [...]
--- OUTSIDE RECORDS SUMMARY | 2019-10-01 04:58 | XMS REPORT ---
Author Author Mike Valentino Organization [facility] Address [address] [place] [address] Care Team Providers Care Ultrasonic Tester Name Role Phone RHETT Valentino Unavailable PROBLEMS Type Condition ICD9-CM Code [id number] Code Onset Dates Condition S tatus SNOMED Code Problem Obesity E66.9 Active 244317835 Problem Essential hypertension I10 Active 90470603 Problem Allergic rhinitis J30.9 Active 61 591963 Problem Type 2 diabetes mellitus wit hout complication, without long-term current use of insulin E11.9 Active 801677223 Problem Hypothyroidism, unspecified E03.9 Ac tive 84741025 Problem Type 2 diabetes mellitus wit hout complication, without long-term current use of insulin E11.9 Active 389065473 Problem Anxiety disorder, unspecified F41.9 Active 995335647 Problem Hyperlipidemia, unspecified hyperlipidemia type E7 8.5 Active 23339026 Problem Chronic hepatitis C without hepatic coma B18.2 Active 426342073 Problem Reactive depression F32.9 Active 12566956 Problem Carpal tunnel syndrome of right wrist G56.01 Active [id number] ALLERGIES No Information ENCOUNTERS Encounter Location Date Diagnosis [facility] [address] [id number] [place] [address] Jun, [facility] [id number] [place] [address] Apr, [facility] [id number] [place] [address] 24 Mar, 2019 Essential hypertension I10 ; Hypothyroid ism, unspecified E03.9 ; Prediabetes R73.03 ; Allergic rhinitis J30.9 and Type 2 diabetes mellitus without complication, without long-term current use of insulin E11.9 [facility] [address] [id number] [place] [id number] Jan, Dental examination Z01.20 and Caries K02 .9 [facility] [place] [id number] [place] [address] Aug, BMI 45.0-49.9, adult Z68.42 ; Chest congestion R09.89 ; Acute URI J06.9 and Morbid obesity E66.01 [facility] [address] [address] Jul, Cough due to bronchospasm J9 8.01 ; Shortness of breath R06.02 ; Obesity E66.9 and Acute bronchitis, viral J20.8 [facility] [address] [address] Jul, [address] [address] Apr, [address] [address] Feb, Elevated glucose R73.09 ; Carpal tunnel syndrome of right wrist G56.01 ; Prediabetes R73.03 and BMI 40.0-44.9, adult Z68.[address] [address] Oct, Essential hypertension I10 ; Hypothyroid ism, unspecified E03.9 and Dysfunction of left eustachian tube H69.[address] [address] Sep, Chronic hepatitis C without hepatic coma B18.2 and Hypothyroidism, unspecified E03.[address] [address] Sep, Hypothyroidism, unspecified E03.[address] [address] May, Chronic hepatitis C without hepatic coma B18.[address] [address] May, [facility] [id number] [place] [address] Apr, Hypothyroidism, unspecified E03.9 and Ch ronic hepatitis C without hepatic coma B18.2 [facility] [address] [address] Apr, Chronic hepatitis C without hepatic coma B18.2 [facility] [address] [address] Mar, Reactive depression F32.9 and Hypothyroi dism, unspecified E03.9 [facility] [address] [address] Feb, Reactive depression F32.9 and Anxiety di sorder, unspecified F41.9 [facility] [address] [address] Feb, Chronic hepatitis C without hepatic coma B18.2 [facility] [address] [address] Jan, Chronic hepatitis C without hepatic coma B18.2 [place] [address] [address] November, Encounter for immunization Z23 and Chron ic hepatitis C without hepatic coma B18.2 [facility] [address] [address] November, [facility] [address] [address] Oct, Chronic hepatitis C without hepatic coma B18.2 [facility] [address] [address] Sep, [facility] [address] [address] Aug, Gastroenteritis K52.9 [facility] [address] [address] Aug, [facility] [address] [address] 08 Aug, 2016 [facility] [address] [address] Aug, [facility] [address] [address] Aug, [facility] [address] [address] Jul, Encounter for immunization Z23 ; Sinus t achycardia R00.0 and Chronic hepatitis C without hepatic coma B18.2 [facility] [address] [address] Jun, Chronic hepatitis C without hepatic coma B18.2 [place] [address] [address] Jun, Chronic hepatitis C without hepatic coma B18.2 [place] [address] [address] May, Anxiety disorder, unspecified F41.9 [place] [address] [address] May, Bronchitis J40 and Eustachian tube dysfu nction, bilateral H69.83 [place] [address] [address] May, Chronic hepatitis C without hepatic coma B18.2 [place] [address] [address] May, Chronic hepatitis C without hepatic coma B18.2 [place] [address] [address] May, [place] [address] [address] Apr, Abnormal LFTs R79.89 [place] [address] [address] 14 Apr, 2016 Abnormal LFTs R79.89 [place] [address] [address] 11 Apr, 2016 Obesity E66.9 ; Hypothyroidism, unspecif ied E03.9 and Hyperlipidemia, unspecified hyperlipidemia type E78.5 [place] [address] [address] 10 Apr, 2016 Obesity E66.9 ; Hypothyroidism, unspecif ied E03.9 and Hyperlipidemia, unspecified hyperlipidemia type E78.5 [place] [address] [address] Apr, Visit for TB skin test Z11.1 [place] [address] [address] November, Obesity E66.9 [place] [address] [address] Oct, Obesity E66.[address] [address] Oct, Essential hypertension I10 ; Hypothyroid ism, unspecified E03.9 and Obesity E66.9 [place] [address] [address] Jun, [address] [address] May, Essential hypertension I10 ; Allergic rh initis J30.9 ; Hypothyroidism, unspecified E03.9 and Otitis media, unspecified, bilateral H66.[address] [address] May, Unspecified hypothyroidism 244.9 and Scr eening for hypertension V81.[address] [address] May, [address] [address] Apr, Hypothyroidism, unspecified E03.9 and An xiety disorder, unspecified F41.9 [place] [address] [address] Feb, Essential hypertension, benign 401.1 [facility] [address] [address] Feb, Unspecified hypothyroidism 244.9 and Scr eening for hypertension V81.1 [facility] [address] [address] Feb, Essential hypertension, benign 401.1 ; A nxiety state, unspecified 300.00 and Rash of groin 782.1 [facility] [address] [address] Feb, [facility] [address] [address] Dec, Essential hypertension, benign 401.1 ; A nxiety state, unspecified 300.00 and Rash of groin 782.1 [facility] [address] [address] November, [facility] [address] [address] Oct, [facility] [address] [address] Oct, [facility] [address] [address] Sep, [facility] [address] [address] Sep, [facility] [address] [address] Aug, [facility] [address] [address] Aug, [facility] [address] [address] Jul, [facility] [address] [address] Jul, [facility] [address] [address] Jun, [facility] [place] [facility] [address] [facility] [id number] [place] [address] Jun, [facility] [place] [facility] [address] [facility] [id number] [facility] [place] [address] Jun, [facility] [place] [facility] [address] [facility] [id number] [place] [address] Jun, [facility] [place] [facility] [address] [facility] [id number] [facility] [place] [address] Jun, [facility] [place] [facility] [address] [facility] [id number] [facility] [place] [address] Jun, [facility] [place] [facility] [address] [id number] [facility] [place] [address] Jun, [facility] [place] [facility] [address] [id number] [place] [address] Jun, [facility] [place] [facility] [address] [id number] [facility] [place] [address] May, [facility] [place] [facility] [address] [facility] [id number] [place] [address] May, [facility] [place] [facility] [address] [id number] [place] [address] Feb, [facility] [place] [facility] [address] [id number] [place] [address] Feb, [facility] [place] [facility] [address] [id number] [place] [address] Feb, [facility] [place] [facility] [address] [facility] [id number] [place] [address] Feb, [facility] [place] [facility] [address] [facility] [id number] [place] [address] Feb, [facility] [place] [facility] [address] [facility] [id number] [place] [address] Feb, [facility] [place] [facility] [address] [id number] [place] [address] Feb, [facility] [place] [facility] [address] [id number] [place] [address] Feb, [facility] [place] [facility] [address] [id number] [facility] [place] [address] Feb, [facility] [place] [facility] [address] [facility] [id number] [place] [address] Feb, [facility] [place] [facility] [address] [id number] [place] [address] Feb, [facility] [place] [facility] [address] [id number] [place] [address] Feb, [facility] [place] [facility] [address] [id number] [place] [address] Jan, [facility] [place] [facility] [address] [id number] [place] [address] Jan, [facility] [place] [facility] [address] [id number] [place] [address] Jan, [facility] [place] [facility] [address] [id number] [place] [address] Jan, [facility] [place] [facility] [address] [id number] [place] [address] Dec, [facility] [place] [facility] [address] [id number] [place] [address] Dec, [facility] [place] [facility] [address] [id number] [place] [address] Oct, [facility] [place] [facility] [address] [id number] [place] [address] Oct, [facility] [place] [facility] [address] [id number] [place] [address] Oct, [facility] [place] [facility] [address] [id number] [place] [address] Oct, [facility] [place] [facility] [address] [id number] [place] [address] Oct, [facility] [place] [facility] [address] [id number] [place] [address] Oct, [facility] [place] [facility] [address] [id number] [place] [address] Oct, [facility] [id number] [place] [address] Aug, [facility] [address] [id number] [place] [address] Aug, [facility] [id number] [place] [address] Jul, [facility] [id number] [place] [address] Jul, [facility] [id number] [place] [address] Jul, [facility] [id number] [place] [address] Jul, [facility] [id number] [place] [address] Jun, [facility] [id number] [place] [address] Jun, [facility] [id number] [place] [address] May, [facility] [id number] [place] [address] May, [facility] [id number] [place] [address] May, [facility] [id number] [place] [address] Oct, [facility] [id number] [place] [address] Oct, IMMUNIZATIONS No Known Immunizations SOCIAL HISTORY Never Assessed REASON FOR VISIT PLAN OF CARE VITAL SIGNS Height 70 in 2013-10-31 Weight 287.7 lbs 2013-10-31 Temperature 96 degrees Fahrenheit 2013-10-31 Heart Rate 68 bpm 2013-10-31 Respiratory Rate 16 2013-10-31 Blood pressure systolic 110 mmHg 2013-10-31 Blood pressure diastolic 72 mmHg 2013-10-31 MEDICATIONS Unknown Medications RESULTS No Results PROCEDURES [...]
--- OUTSIDE RECORDS SUMMARY | 2019-10-01 04:58 | XMS REPORT ---
Author Author Mike Valentino Organization [facility] Address [address] [place] [address] Care Team Providers Care Fire Control Assistant Name Role Phone RHETT Valentino Unavailable PROBLEMS Type Condition ICD9-CM Code KBS28-HV Code Onset Dates Condition S tatus SNOMED Code Problem Obesity E66.9 Active 084677300 Problem Essential hypertension I10 Active 41148717 Problem Allergic rhinitis J30.9 Active 61 861313 Problem Type 2 diabetes mellitus wit hout complication, without long-term current use of insulin E11.9 Active 304684467 Problem Hypothyroidism, unspecified E03.9 Ac tive 31479550 Problem Type 2 diabetes mellitus wit hout complication, without long-term current use of insulin E11.9 Active 212459672 Problem Anxiety disorder, unspecified F41.9 Active 094488608 Problem Hyperlipidemia, unspecified hyperlipidemia type E7 8.5 Active 54378853 Problem Chronic hepatitis C without hepatic coma B18.2 Active 981757786 Problem Reactive depression F32.9 Active 57088515 Problem Carpal tunnel syndrome of right wrist G56.01 Active [id number] ALLERGIES No Information ENCOUNTERS Encounter Location Date Diagnosis [facility] [address] [id number] [address] [place] [address] Apr, [facility] [address] [id number] [address] [place] [id number] 24 Mar, 2019 Essential hypertension I10 ; Hypothyroidism, unspecified E03.9 ; Prediabetes R73.03 ; Allergic rhinitis J30.9 and Type 2 diabetes mellitus without complication, without long-term current use of insulin E11.9 [facility] [address] [id number] [address] [place] [id number] Jan, Dental examination Z01.20 an d Caries K02.9 [facility] [address] [place] [address] Aug, BMI 45.0-49.9, adult Z68.42 ; Chest congestion R09.89 ; Acute URI J06.9 and Morbid obesity E66.01 [facility] [address] [address] Jul, Cough due to bronchospasm J9 8.01 ; Shortness of breath R06.02 ; Obesity E66.9 and Acute bronchitis, viral J20.8 [facility] [address] [address] Jul, [place] [address] [address] Apr, [place] [address] [address] Feb, Elevated glucose R73.09 ; Ca rpal tunnel syndrome of right wrist G56.01 ; Prediabetes R73.03 and BMI 40.0-44.9, adult Z68.41 [place] [address] [address] Oct, Essential hypertension I10 ; Hypothyroidism, unspecified E03.9 and Dysfunction of left eustachian tube H69.82 [place] [address] [place] [id number] [place] [address] Sep, Chronic hepatitis C without hepatic coma B18.2 and Hypothyroidism, unspecified E03.9 [place] [address] [place] [id number] [place] [address] Sep, Hypothyroidism, unspecified E03.9 [place] [address] [address] May, Chronic hepatitis C without hepatic coma B18.2 [place] [address] [address] May, [place] [address] [place] [id number] [place] [address] Apr, Hypothyroidism, unspecified E03.9 and Chronic hepatitis C without hepatic coma B18.2 [facility] [address] [facility] [id number] [address] [place] [address] Apr, Chronic hepatitis C without hepatic coma B18.2 [facility] [address] [facility] [id number] [address] [place] [address] Mar, Reactive depression F32.9 an d Hypothyroidism, unspecified E03.9 [facility] [address] [facility] [id number] [address] [place] [address] Feb, Reactive depression F32.9 an d Anxiety disorder, unspecified F41.9 [facility] [address] [facility] [id number] [address] [place] [phone] Feb, Chronic hepatitis C without hepatic coma B18.2 [facility] [address] [facility] [id number] [address] [place] [address] Jan, Chronic hepatitis C without hepatic coma B18.2 [facility] [address] [facility] [id number] [address] [place] [phone] November, Encounter for immunization Z 23 and Chronic hepatitis C without hepatic coma B18.2 [facility] [address] [facility] [id number] [address] [place] [phone] November, [facility] [address] [facility] [id number] [address] [place] [phone] Oct, Chronic hepatitis C without hepatic coma B18.2 [facility] [address] [facility] [id number] [address] [place] [address] Sep, [facility] [address] [facility] [id number] [address] [place] [address] Aug, Gastroenteritis K52.9 [facility] [address] [facility] [id number] [address] [place] [phone] Aug, [facility] [id number] [address] [place] [phone] 08 Aug, 2016 [facility] [address] [facility] [id number] [address] [place] [address] Aug, [facility] [address] [facility] [id number] [address] [place] [address] Aug, [facility] [id number] [place] [address] Jul, Encounter for immunization Z 23 ; Sinus tachycardia R00.0 and Chronic hepatitis C without hepatic coma B18.2 [facility] [id number] [place] [address] Jun, Chronic hepatitis C without hepatic coma B18.2 [facility] [id number] [place] [address] Jun, Chronic hepatitis C without hepatic coma B18.2 [facility] [address] [address] May, Anxiety disorder, unspecifie d F41.9 [facility] [address] [address] May, Bronchitis J40 and Eustachia n tube dysfunction, bilateral H69.83 [facility] [id number] [place] [address] May, Chronic hepatitis C without hepatic coma B18.2 [facility] [id number] [place] [address] May, Chronic hepatitis C without hepatic coma B18.2 [facility] [address] [address] May, [facility] [id number] [place] [address] Apr, Abnormal LFTs R79.89 [facility] [id number] [place] [address] Apr, Abnormal LFTs R79.89 [facility] [address] [facility] [id number] [address] [place] [address] Apr, Obesity E66.9 ; Hypothyroidi sm, unspecified E03.9 and Hyperlipidemia, unspecified hyperlipidemia type E78.5 [place] [address] [place] [address] [id number] [place] [phone] 10 Apr, 2016 Obesity E66.9 ; Hypothyroidi sm, unspecified E03.9 and Hyperlipidemia, unspecified hyperlipidemia type E78.5 [place] [address] [place] [id number] [place] [address] Apr, Visit for TB skin test Z11.1 [place] [address] [place] [id number] [place] [address] November, Obesity E66.9 [place] [address] [place] [id number] [place] [address] Oct, Obesity E66.9 [place] [address] [place] [id number] [place] [phone] Oct, Essential hypertension I10 ; Hypothyroidism, unspecified E03.9 and Obesity E66.9 [place] [address] [place] [id number] [place] [address] Jun, [place] [address] [place] [id number] [place] [address] May, Essential hypertension I10 ; Allergic rhinitis J30.9 ; Hypothyroidism, unspecified E03.9 and Otitis media, unspecified, bilateral H66.93 [place] [address] [facility] [id number] [address] [place] [address] May, Unspecified hypothyroidism 2 44.9 and Screening for hypertension V81.1 [place] [address] [place] [id number] [place] [address] May, [place] [address] [place] [address] [id number] [place] [address] Apr, Hypothyroidism, unspecified E03.9 and Anxiety disorder, unspecified F41.9 [facility] [id number] [place] [address] Feb, Essential hypertension, humza gn 401.1 [facility] [id number] [place] [address] Feb, Unspecified hypothyroidism 2 44.9 and Screening for hypertension V81.1 [facility] [id number] [place] [phone] Feb, Essential hypertension, humza gn 401.1 ; Anxiety state, unspecified 300.00 and Rash of groin 782.1 [facility] [id number] [place] [address] Feb, [facility] [id number] [place] [address] Dec, Essential hypertension, humza gn 401.1 ; Anxiety state, unspecified 300.00 and Rash of groin 782.1 [facility] [address] [facility] [id number] [address] [place] [phone] November, [facility] [id number] [address] [place] [phone] Oct, [facility] [id number] [place] [address] Oct, [facility] [address] [facility] [id number] [address] [place] [address] Sep, [facility] [address] [facility] [id number] [address] [place] [address] Sep, [facility] [id number] [place] [phone] Aug, [facility] [id number] [place] [phone] Aug, [facility] [address] [id number] [address] [place] [address], [place] [address] 15 Jul, 2014 [facility] [address] [id number] [address] [place] [address], [place] [address] Jul, [facility] [address] [id number] [address] [place] [address], [place] [address] Jun, [facility] [address] [id number] [address] [place] [address], [place] [address] Jun, [facility] [address] [id number] [address] [place] [address], [place] [address] Jun, [facility] [address] [id number] [address] [place] [address], [place] [address] Jun, [facility] [address] [id number] [address] [place] [address], [place] [address] Jun, [facility] [address] [id number] [address] [place] [address], [place] [address] Jun, [facility] [address] [id number] [address] [place] [address], [place] [address] Jun, [facility] [address] [id number] [address] [place] [address], [place] [address] Jun, [facility] [address] [id number] [address] [place] [address], [place] [address] May, [facility] [address] [id number] [address] [place] [address], [place] [address] May, [facility] [address] [id number] [address] [place] [address], [place] [address] Feb, [facility] [address] [id number] [address] [place] [address], [place] [address] Feb, [facility] [address] [id number] [address] [place] [address], [place] [address] Feb, [facility] [address] [id number] [address] [place] [address], [place] [address] Feb, [facility] [address] [id number] [address] [place] [address], [place] [address] Feb, [facility] [address] [id number] [address] [place] [address], [place] [address] Feb, [facility] [address] [id number] [address] [place] [address], [place] [address] Feb, [facility] [address] [id number] [address] [place] [address], [place] [address] Feb, [facility] [address] [id number] [address] [place] [address], [place] [address] Feb, [facility] [address] [id number] [address] [place] [address], [place] [address] Feb, [facility] [address] [id number] [address] [place] [address], [place] [address] Feb, [facility] [address] [id number] [address] [place] [address], [place] [address] Feb, [facility] [address] [id number] [address] [place] [address], [place] [address] Jan, [facility] [address] [id number] [address] [place] [address], [place] [address] Jan, [facility] [address] [id number] [address] [place] [address], [place] [address] Jan, [facility] [address] [id number] [address] [place] [address], [place] [address] Jan, [facility] [address] [id number] [address] [place] [address], [place] [address] Dec, [facility] [address] [id number] [address] [place] [address], [place] [address] Dec, [facility] [address] [id number] [address] [place] [address], [place] [address] Oct, [facility] [address] [id number] [address] [place] [address], [place] [address] Oct, [facility] [address] [id number] [address] [place] [address], [place] [address] Oct, [facility] [address] [id number] [address] [place] [address], [place] [address] Oct, [facility] [address] [id number] [address] [place] [address], [place] [address] Oct, [facility] [address] [id number] [address] [place] [address], [place] [address] Oct, [facility] [address] [id number] [address] [place] [address], [place] [address] Oct, [facility] [address] [id number] [address] [place] [address], [place] [address] Aug, [facility] [address] [id number] [address] [place] [address], [place] [address] Aug, [facility] [address] [id number] [address] [place] [address], [place] [address] Jul, [facility] [address] [id number] [address] [place] [address], [place] [address] Jul, [facility] [address] [id number] [address] [place] [address], [place] [address] Jul, [facility] [address] [id number] [address] [place] [address], [place] [address] Jul, [facility] [address] [id number] [address] [place] [address], [place] [address] Jun, [facility] [address] [id number] [address] [place] [address], [place] [address] Jun, [facility] [address] [id number] [address] [place] [address], [place] [address] May, [facility] [address] [id number] [address] [place] [address], [place] [address] May, [facility] [address] [id number] [address] [place] [address] May, [facility] [address] [facility] [id number] [address] [place] [address] Oct, [facility] [address] [facility] [id number] [address] [place] [address] Oct, IMMUNIZATIONS No Known Immunizations SOCIAL HISTORY [...]
--- OUTSIDE RECORDS SUMMARY | 2019-10-01 04:59 | XMS REPORT ---
Author Author Mike Valentino Organization [facility] Address [address] [place] [address] Care Team Providers Care Toter Name Role Phone RHETT Valentino Unavailable PROBLEMS Type Condition ICD9-CM Code OPA88-UF Code Onset Dates Condition S tatus SNOMED Code Problem Hypothyroidism, unspecified E03.9 Ac tive 09471870 Problem Obesity E66.9 Active 445236816 Problem Essential hypertension I10 Active 71431143 Problem Prediabetes R73.03 Active 20496392 2 Problem Anxiety disorder, unspecified F41.9 Active 977573443 Problem Carpal tunnel syndrome of right wrist G56.01 Active 564230535336648 Problem Allergic rhinitis J30.9 Active 61 996868 Problem Hyperlipidemia, unspecified hyperlipidemia type E7 8.5 Active 89891602 Problem Chronic hepatitis C without hepatic coma B18.2 Active 598698791 Problem Reactive depression F32.9 Active [id number] ALLERGIES No Information ENCOUNTERS Encounter Location Date Diagnosis [facility] [address] [facility] [id number] [address] [place] [address] [id number] Jan, Dental examination Z01.20 an d Caries K02.9 [facility] [address] [place] [id number] [address] [place] [address] Aug, BMI 45.0-49.9, adult Z68.42 ; Chest congestion R09.89 ; Acute URI J06.9 and Morbid obesity E66.01 [facility] [address] [place] [address] [id number] [address] [place] [id number] Jul, Cough due to bronchospasm J9 8.01 ; Shortness of breath R06.02 ; Obesity E66.9 and Acute bronchitis, viral J20.8 [facility] [address] [id number] [address] [place] [address] Jul, [facility] [id number] [address] [place] [address] Apr, [facility] [id number] [place] [address] Feb, Elevated glucose R73.09 ; Ca rpal tunnel syndrome of right wrist G56.01 ; Prediabetes R73.03 and BMI 40.0-44.9, adult Z68.41 [place] [address] [place] [id number] [place] [address] Oct, Essential hypertension I10 ; Hypothyroidism, unspecified E03.9 and Dysfunction of left eustachian tube H69.82 [place] [address] [place] [id number] [place] [address] Sep, Chronic hepatitis C without hepatic coma B18.2 and Hypothyroidism, unspecified E03.9 [place] [address] [address] Sep, Hypothyroidism, unspecified E03.9 [place] [address] [place] [id number] [address] [place] [id number] May, Chronic hepatitis C without hepatic coma B18.2 [place] [address] [place] [id number] [address] [place] [address] May, [place] [address] [place] [id number] [address] [place] [address] Apr, Hypothyroidism, unspecified E03.9 and Chronic hepatitis C without hepatic coma B18.2 [place] [address] [place] [id number] [place] [address] Apr, Chronic hepatitis C without hepatic coma B18.2 [place] [address] [place] [id number] [place] [address] Mar, Reactive depression F32.9 an d Hypothyroidism, unspecified E03.9 [place] [address] [place] [id number] [place] [address] Feb, Reactive depression F32.9 an d Anxiety disorder, unspecified F41.9 [facility] [address] [facility] [id number] [address] [place] [address] Feb, Chronic hepatitis C without hepatic coma B18.2 [facility] [address] [facility] [id number] [address] [place] [address] Jan, Chronic hepatitis C without hepatic coma B18.2 [facility] [address] [facility] [id number] [address] [place] [address] November, Encounter for immunization Z 23 and Chronic hepatitis C without hepatic coma B18.2 [facility] [address] [facility] [id number] [address] [place] [address] November, [facility] [address] [facility] [id number] [address] [place] [address] Oct, Chronic hepatitis C without hepatic coma B18.2 [facility] [address] [facility] [id number] [address] [place] [address] Sep, [facility] [address] [facility] [id number] [address] [place] [address] Aug, Gastroenteritis K52.9 [facility] [address] [facility] [id number] [address] [place] [address] Aug, [facility] [address] [facility] [id number] [address] [place] [address] Aug, [facility] [address] [facility] [id number] [address] [place] [address] Aug, [facility] [address] [facility] [id number] [address] [place] [address] Aug, [facility] [address] [facility] [id number] [address] [place] [address] Jul, Encounter for immunization Z 23 ; Sinus tachycardia R00.0 and Chronic hepatitis C without hepatic coma B18.2 [facility] [address] [id number] [place] [address] Jun, Chronic hepatitis C without hepatic coma B18.2 [facility] [address] [id number] [address] [place] [address] Jun, Chronic hepatitis C without hepatic coma B18.2 [facility] [address] [place] [address] [id number] [address] [place] [address] May, Anxiety disorder, unspecifie d F41.9 [facility] [address] [place] [id number] [address] [place] [address] May, Bronchitis J40 and Eustachia n tube dysfunction, bilateral H69.83 [place] [address] [place] [id number] [place] [address] May, Chronic hepatitis C without hepatic coma B18.2 [place] [address] [address] May, Chronic hepatitis C without hepatic coma B18.2 [place] [address] [place] [id number] [address] [place] [address] May, [place] [address] [place] [id number] [place] [address] Apr, Abnormal LFTs R79.89 [place] [id number] [place] [address] 14 Apr, 2016 Abnormal LFTs R79.89 [place] [address] [place] [id number] [place] [address] 11 Apr, 2016 Obesity E66.9 ; Hypothyroidi sm, unspecified E03.9 and Hyperlipidemia, unspecified hyperlipidemia type E78.5 [place] [address] [place] [id number] [place] [address] 10 Apr, 2016 Obesity E66.9 ; Hypothyroidi sm, unspecified E03.9 and Hyperlipidemia, unspecified hyperlipidemia type E78.5 [place] [address] [place] [address] Apr, Visit for TB skin test Z11.1 [place] [address] [address] November, Obesity E66.9 [place] [address] [address] Oct, Obesity E66.9 [place] [address] [address] Oct, Essential hypertension I10 ; Hypothyroidism, unspecified E03.9 and Obesity E66.9 [place] [address] [address] Jun, [place] [address] [address] May, Essential hypertension I10 ; Allergic rhinitis J30.9 ; Hypothyroidism, unspecified E03.9 and Otitis media, unspecified, bilateral H66.93 [place] [address] [address] May, Unspecified hypothyroidism 2 44.9 and Screening for hypertension V81.1 [place] [address] [address] May, [place] [address] [address] Apr, Hypothyroidism, unspecified E03.9 and Anxiety disorder, unspecified F41.9 [place] [address] [address] Feb, Essential hypertension, humza gn 401.1 [place] [address] [address] Feb, Unspecified hypothyroidism 2 44.9 and Screening for hypertension V81.1 [place] [address] [address] Feb, Essential hypertension, humza gn 401.1 ; Anxiety state, unspecified 300.00 and Rash of groin 782.1 [facility] [address] [id number] [address] [place] [address], [place] [address] Feb, [facility] [address] [id number] [address] [place] [address] Dec, Essential hypertension, humza gn 401.1 ; Anxiety state, unspecified 300.00 and Rash of groin 782.1 [facility] [address] [id number] [address] [place] [address] November, [facility] [address] [id number] [address] [place] [address] Oct, [facility] [address] [id number] [address] [place] [address] Oct, [facility] [address] [id number] [address] [place] [address] Sep, [facility] [address] [id number] [address] [place] [address] Sep, [facility] [address] [id number] [address] [place] [address] Aug, [facility] [address] [id number] [address] [place] [address] Aug, [facility] [address] [id number] [address] [place] [address] Jul, [facility] [address] [id number] [address] [place] [address] Jul, [facility] [address] [id number] [address] [place] [address] Jun, [facility] [address] [id number] [address] [place] [address] Jun, [facility] [address] [id number] [address] [place] [address] Jun, [facility] [address] [id number] [facility] [place] [address] Jun, [facility] [address] [id number] [address] [place] [address], [place] [address] Jun, [facility] [address] [id number] [address] [place] [address], [place] [address] Jun, [facility] [address] [id number] [address] [place] [address], [place] [address] Jun, [facility] [address] [id number] [address] [place] [address], [place] [address] Jun, [facility] [address] [id number] [address] [place] [address], [place] [address] May, [facility] [address] [id number] [address] [place] [address], [place] [address] May, [facility] [address] [id number] [address] [place] [address], [place] [address] Feb, [facility] [address] [id number] [address] [place] [address], [place] [address] Feb, [facility] [address] [id number] [address] [place] [address], [place] [address] Feb, [facility] [address] [id number] [address] [place] [address], [place] [address] Feb, [facility] [address] [id number] [address] [place] [address], [place] [address] Feb, [facility] [address] [id number] [address] [place] [address], [place] [address] Feb, [facility] [address] [id number] [address] [place] [address], [place] [address] Feb, [facility] [address] [id number] [address] [place] [address], [place] [address] Feb, [facility] [address] [id number] [address] [place] [address], [place] [address] Feb, [facility] [address] [id number] [address] [place] [address], [place] [address] Feb, [facility] [address] [id number] [address] [place] [address], [place] [address] Feb, [facility] [address] [id number] [address] [place] [address], [place] [address] Feb, [facility] [address] [id number] [address] [place] [address], [place] [address] Jan, [facility] [address] [id number] [address] [place] [address], [place] [address] Jan, [facility] [address] [id number] [address] [place] [address], [place] [address] Jan, [facility] [address] [id number] [address] [place] [address], [place] [address] Jan, [facility] [address] [id number] [address] [place] [address], [place] [address] Dec, [facility] [address] [id number] [address] [place] [address], [place] [address] Dec, [facility] [address] [id number] [address] [place] [address], [place] [address] Oct, [facility] [address] [id number] [address] [place] [address], [place] [address] Oct, [facility] [address] [id number] [address] [place] [address], [place] [address] Oct, [facility] [address] [id number] [address] [place] [address], [place] [address] Oct, [facility] [address] [id number] [address] [place] [address], [place] [address] Oct, [facility] [address] [id number] [address] [place] [address], [place] [address] Oct, [facility] [address] [id number] [address] [place] [address] Oct, [facility] [address] [id number] [address] [place] [address] Aug, [facility] [address] [id number] [address] [place] [address] Aug, [facility] [address] [id number] [address] [place] [address] Jul, [facility] [address] [id number] [address] [place] [address] Jul, [facility] [address] [id number] [address] [place] [address] Jul, [facility] [address] [id number] [address] [place] [address] Jul, [facility] [address] [id number] [address] [place] [address] Jun, [facility] [address] [id number] [address] [place] [address] Jun, [facility] [address] [id number] [address] [place] [address] May, [facility] [address] [id number] [address] [place] [address] May, [facility] [address] [id number] [address] [place] [address] May, [facility] [address] [id number] [address] [place] [address] Oct, [facility] [address] [id number] [address] [place] [address] Oct, IMMUNIZATIONS No Known Immunizations SOCIAL HISTORY [...]
--- OUTSIDE RECORDS SUMMARY | 2019-10-01 04:59 | XMS REPORT ---
Author Author Mike Valentino Organization [facility] Address [address] [place] [address] Care Team Providers Care Web Press Jogger Name Role Phone RHETT Valentino Unavailable PROBLEMS Type Condition ICD9-CM Code XVT45-RZ Code Onset Dates Condition S tatus SNOMED Code Problem Hypothyroidism, unspecified E03.9 Ac tive 25872437 Problem Obesity E66.9 Active 726157407 Problem Essential hypertension I10 Active 36454451 Problem Prediabetes R73.03 Active 94304677 2 Problem Anxiety disorder, unspecified F41.9 Active 381253230 Problem Carpal tunnel syndrome of right wrist G56.01 Active [id number] Problem Allergic rhinitis J30.9 Active 61 596812 Problem Hyperlipidemia, unspecified hyperlipidemia type E7 8.5 Active 32696260 Problem Chronic hepatitis C without hepatic coma B18.2 Active 329456910 Problem Reactive depression F32.9 Active 26352663 ALLERGIES No Information ENCOUNTERS Encounter Location Date Diagnosis [facility] [address] [id number] [address] [place] [phone] Feb, [facility] [address] [id number] [address] [place] [id number] Jan, Dental examination Z01.20 an d Caries K02.9 [facility] [address] [facility] [id number] [address] [place] [phone] Aug, BMI 45.0-49.9, adult Z68.42 ; Chest congestion R09.89 ; Acute URI J06.9 and Morbid obesity E66.01 [facility] [address] [facility] [id number] [address] [place] [phone] Jul, Cough due to bronchospasm J9 8.01 ; Shortness of breath R06.02 ; Obesity E66.9 and Acute bronchitis, viral J20.8 [facility] [address] [facility] [id number] [address] [place] [phone] Jul, [facility] [address] [facility] [id number] [address] [place] [phone] Apr, [facility] [address] [facility] [id number] [address] [place] [phone] Feb, Elevated glucose R73.09 ; Ca rpal tunnel syndrome of right wrist G56.01 ; Prediabetes R73.03 and BMI 40.0-44.9, adult Z68.41 [facility] [address] [facility] [id number] [address] [place] [phone] Oct, Essential hypertension I10 ; Hypothyroidism, unspecified E03.9 and Dysfunction of left eustachian tube H69.82 [facility] [address] [id number] [address] [place] [phone] Sep, Chronic hepatitis C without hepatic coma B18.2 and Hypothyroidism, unspecified E03.9 [facility] [address] [id number] [address] [place] [phone] Sep, Hypothyroidism, unspecified E03.9 [facility] [address] [id number] [address] [place] [phone] May, Chronic hepatitis C without hepatic coma B18.2 [facility] [address] [id number] [address] [place] [phone] May, [facility] [address] [id number] [address] [place] [phone] Apr, Hypothyroidism, unspecified E03.9 and Chronic hepatitis C without hepatic coma B18.2 [facility] [address] [facility] [id number] [address] [place] [phone] Apr, Chronic hepatitis C without hepatic coma B18.2 [facility] [address] [id number] [address] [place] [phone] Mar, Reactive depression F32.9 an d Hypothyroidism, unspecified E03.9 [facility] [address] [facility] [id number] [address] [place] [phone] Feb, Reactive depression F32.9 an d Anxiety disorder, unspecified F41.9 [facility] [address] [facility] [id number] [address] [place] [phone] Feb, Chronic hepatitis C without hepatic coma B18.2 [facility] [address] [facility] [id number] [address] [place] [id number] Jan, Chronic hepatitis C without hepatic coma B18.2 [facility] [address] [facility] [id number] [address] [place] [phone] November, Encounter for immunization Z 23 and Chronic hepatitis C without hepatic coma B18.2 [facility] [address] [id number] [address] [place] [phone] November, [facility] [address] [facility] [id number] [address] [place] [phone] Oct, Chronic hepatitis C without hepatic coma B18.2 [facility] [address] [facility] [id number] [address] [place] [phone] Sep, [facility] [address] [id number] [address] [place] [phone] Aug, Gastroenteritis K52.9 [facility] [address] [facility] [id number] [address] [place] [phone] Aug, [facility] [address] [facility] [id number] [address] [place] [phone] Aug, [facility] [address] [facility] [id number] [address] [place] [phone] Aug, [facility] [address] [facility] [id number] [address] [place] [phone] Aug, [facility] [address] [id number] [address] [place] [phone] Jul, Encounter for immunization Z 23 ; Sinus tachycardia R00.0 and Chronic hepatitis C without hepatic coma B18.2 [facility] [address] [id number] [address] [place] [phone] Jun, Chronic hepatitis C without hepatic coma B18.2 [facility] [address] [facility] [id number] [address] [place] [phone] Jun, Chronic hepatitis C without hepatic coma B18.2 [facility] [address] [id number] [address] [place] [phone] May, Anxiety disorder, unspecifie d F41.9 [facility] [address] [phone] May, Bronchitis J40 and Eustachia n tube dysfunction, bilateral H69.83 [place] [address] [id number] [address] [place] [phone] May, Chronic hepatitis C without hepatic coma B18.2 [facility] [address] [id number] [address] [place] [phone] May, Chronic hepatitis C without hepatic coma B18.2 [facility] [address] [id number] [address] [place] [phone] May, [facility] [address] [id number] [address] [place] [phone] Apr, Abnormal LFTs R79.89 [place] [address] [id number] [address] [place] [phone] 14 Apr, 2016 Abnormal LFTs R79.89 [facility] [address] [id number] [address] [place] [phone] 11 Apr, 2016 Obesity E66.9 ; Hypothyroidi sm, unspecified E03.9 and Hyperlipidemia, unspecified hyperlipidemia type E78.5 [facility] [address] [id number] [address] [place] [phone] 10 Apr, 2016 Obesity E66.9 ; Hypothyroidi sm, unspecified E03.9 and Hyperlipidemia, unspecified hyperlipidemia type E78.5 [address] [address] [address] Apr, Visit for TB skin test Z11.1 [place] [address] [address] November, Obesity E66.9 [place] [address] [address] Oct, Obesity E66.9 [place] [address] [address] Oct, Essential hypertension I10 ; Hypothyroidism, unspecified E03.9 and Obesity E66.9 [place] [address] [address] Jun, [place] [address] [address] May, Essential hypertension I10 ; Allergic rhinitis J30.9 ; Hypothyroidism, unspecified E03.9 and Otitis media, unspecified, bilateral H66.93 [place] [address] [phone] May, Unspecified hypothyroidism 2 44.9 and Screening for hypertension V81.1 [place] [address] [address] May, [place] [address] [address] Apr, Hypothyroidism, unspecified E03.9 and Anxiety disorder, unspecified F41.9 [address] [address] [address] Feb, Essential hypertension, humza gn 401.1 [place] [address] [address] Feb, Unspecified hypothyroidism 2 44.9 and Screening for hypertension V81.1 [place] [address] [id number] [address] [place] [address], [place] [address] Feb, Essential hypertension, humza gn 401.1 ; Anxiety state, unspecified 300.00 and Rash of groin 782.1 [facility] [address] [id number] [address] [place] [address], [place] [address] Feb, [facility] [address] [id number] [address] [place] [phone] Dec, Essential hypertension, humza gn 401.1 ; Anxiety state, unspecified 300.00 and Rash of groin 782.1 [facility] [address] [id number] [address] [place] [phone] November, [facility] [address] [id number] [address] [place] [phone] Oct, [facility] [address] [id number] [address] [place] [phone] Oct, [facility] [address] [id number] [address] [place] [phone] Sep, [facility] [address] [id number] [address] [place] [phone] Sep, [facility] [address] [id number] [address] [place] [phone] Aug, [facility] [address] [id number] [address] [place] [address], [place] [id number] Aug, [facility] [address] [id number] [address] [place] [phone] Jul, [facility] [address] [id number] [address] [place] [phone] Jul, [facility] [address] [id number] [address] [place] [phone] Jun, [facility] [address] [id number] [address] [place] [phone] Jun, [facility] [address] [id number] [facility] [place] [address] Jun, [facility] [address] [id number] [address] [place] [address], [place] [address] Jun, [facility] [address] [id number] [address] [place] [address], [place] [address] Jun, [facility] [address] [id number] [address] [place] [address], [place] [address] Jun, [facility] [address] [id number] [address] [place] [address], [place] [address] Jun, [facility] [address] [id number] [address] [place] [address], [place] [address] Jun, [facility] [address] [id number] [address] [place] [address], [place] [address] May, [facility] [address] [id number] [address] [place] [address], [place] [address] May, [facility] [address] [id number] [address] [place] [address], [place] [address] Feb, [facility] [address] [id number] [address] [place] [address], [place] [id number] Feb, [facility] [address] [id number] [address] [place] [address], [place] [address] Feb, [facility] [address] [id number] [address] [place] [address], [place] [address] Feb, [facility] [address] [id number] [address] [place] [address], [place] [address] Feb, [facility] [address] [id number] [address] [place] [address], [place] [address] Feb, [facility] [address] [id number] [address] [place] [address], [place] [address] Feb, [facility] [address] [id number] [address] [place] [address], [place] [id number] Feb, [facility] [address] [id number] [address] [place] [address], [place] [address] Feb, [facility] [address] [id number] [address] [place] [address], [place] [address] Feb, [facility] [address] [id number] [address] [place] [address], [place] [address] Feb, [facility] [address] [id number] [address] [place] [address], [place] [address] Feb, [facility] [address] [id number] [address] [place] [address], [place] [address] Jan, [facility] [address] [id number] [address] [place] [address], [place] [address] Jan, [facility] [address] [id number] [address] [place] [address], [place] [address] Jan, [facility] [address] [id number] [address] [place] [address], [place] [address] Jan, [facility] [address] [id number] [address] [place] [address], [place] [address] Dec, [facility] [address] [id number] [address] [place] [address], [place] [address] Dec, [facility] [address] [id number] [address] [place] [address], [place] [address] Oct, [facility] [address] [id number] [address] [place] [address], [place] [address] Oct, [facility] [address] [id number] [address] [place] [address], [place] [address] Oct, [facility] [address] [id number] [address] [place] [address], [place] [address] Oct, [facility] [address] [id number] [address] [place] [address], [place] [address] Oct, [facility] [address] [id number] [address] [place] [phone] Oct, [facility] [address] [id number] [address] [place] [phone] Oct, [facility] [address] [id number] [address] [place] [phone] Aug, [facility] [address] [id number] [address] [place] [phone] Aug, [facility] [address] [id number] [address] [place] [phone] Jul, [facility] [address] [id number] [address] [place] [phone] Jul, [facility] [address] [id number] [address] [place] [phone] Jul, [facility] [address] [id number] [address] [place] [phone] Jul, [facility] [address] [id number] [address] [place] [phone] Jun, [facility] [address] [id number] [address] [place] [phone] Jun, [facility] [address] [id number] [address] [place] [phone] May, [facility] [address] [id number] [address] [place] [phone] May, [facility] [address] [id number] [address] [place] [phone] May, [facility] [address] [id number] [address] [place] [phone] Oct, [facility] [address] [id number] [address] [place] [phone] Oct, IMMUNIZATIONS No Known Immunizations SOCIAL HISTORY Never Assessed REASON FOR VISIT PLAN OF CARE VITAL SIGNS MEDICATIONS Unknown Medications RESULTS No Results PROCEDURES Procedure Date Ordered Result Body Site COMPLETE CBC W/AUTO DIFF WBC February 21, 2014 ASSAY THYROID STIM HORMONE February 21, 2014 ASSAY OF TOTAL TESTOSTERONE February 21, 2014 LIPID PANEL February 21, 2014 COMPREHEN METABOLIC PANEL February 21, 2014 VENIPUNCT, ROUTINE* February 21, 2014 INSTRUCTIONS MEDICATIONS ADMINISTERED No Known Medications MEDICAL (GENERAL) HISTORY Type Description Date Medical History Hearing loss Medical History Acid reflux Medical History Inguinal hernia at -1965 Medical History Depression Medical History HTN Medical History ANXIETY Surgical History Left ear surgery Surgical History Appendectomy Surgical History Left knee ACL/MCL repair Surgical History HERNIA SURGERY
--- OUTSIDE RECORDS SUMMARY | 2019-10-01 04:59 | XMS REPORT ---
Author Author Mike SUÁREZ Organization [facility] Address [address] [place] [address] Care Team Providers Care Playroom Attendant Name Role Phone ZEUS SUÁRZE Unavailable PROBLEMS Type Condition ICD9-CM Code KAH23-CS Code Onset Dates Condition S tatus SNOMED Code Problem Hypothyroidism, unspecified E03.9 Ac tive 29634409 Problem Obesity E66.9 Active 287150986 Problem Essential hypertension I10 Active 39171178 Problem Prediabetes R73.03 Active 02543042 2 Problem Anxiety disorder, unspecified F41.9 Active 742012211 Problem Carpal tunnel syndrome of right wrist G56.01 Active 650207610825674 Problem Allergic rhinitis J30.9 Active 61 648406 Problem Hyperlipidemia, unspecified hyperlipidemia type E7 8.5 Active 48833902 Problem Chronic hepatitis C without hepatic coma B18.2 Active 447076151 Problem Reactive depression F32.9 Active 44441535 ALLERGIES No Information ENCOUNTERS Encounter Location Date Diagnosis [facility] [address] [facility] [id number] [address] [place] [id number] Jan, Dental examination Z01.20 an d Caries K02.9 [facility] [address] [id number] [address] [place] [address] Aug, BMI 45.0-49.9, adult Z68.42 ; Chest congestion R09.89 ; Acute URI J06.9 and Morbid obesity E66.01 [facility] [address] [facility] [id number] [address] [place] [id number] Jul, Cough due to bronchospasm J9 8.01 ; Shortness of breath R06.02 ; Obesity E66.9 and Acute bronchitis, viral J20.8 [facility] [address] [id number] [address] [place] [id number] Jul, [facility] [address] [id number] [address] [place] [address] Apr, [facility] [id number] [place] [address] Feb, Elevated glucose R73.09 ; Ca rpal tunnel syndrome of right wrist G56.01 ; Prediabetes R73.03 and BMI 40.0-44.9, adult Z68.41 [place] [address] [address] Oct, Essential hypertension I10 ; Hypothyroidism, unspecified E03.9 and Dysfunction of left eustachian tube H69.82 [place] [address] [place] [id number] [place] [address] Sep, Chronic hepatitis C without hepatic coma B18.2 and Hypothyroidism, unspecified E03.9 [place] [address] [address] Sep, Hypothyroidism, unspecified E03.9 [place] [address] [address] May, Chronic hepatitis C without hepatic coma B18.2 [place] [address] [address] May, [place] [address] [place] [id number] [address] [place] [address] Apr, Hypothyroidism, unspecified E03.9 and Chronic hepatitis C without hepatic coma B18.2 [place] [address] [place] [id number] [address] [place] [address] Apr, Chronic hepatitis C without hepatic coma B18.2 [place] [address] [place] [id number] [address] [place] [address] Mar, Reactive depression F32.9 an d Hypothyroidism, unspecified E03.9 [place] [address] [address] Feb, Reactive depression F32.9 an d Anxiety disorder, unspecified F41.9 [facility] [address] [facility] [id number] [address] [place] [phone] Feb, Chronic hepatitis C without hepatic coma B18.2 [facility] [address] [facility] [id number] [address] [place] [phone] Jan, Chronic hepatitis C without hepatic coma B18.2 [facility] [address] [facility] [id number] [address] [place] [phone] November, Encounter for immunization Z 23 and Chronic hepatitis C without hepatic coma B18.2 [facility] [address] [id number] [address] [place] [address] November, [facility] [address] [id number] [address] [place] [phone] Oct, Chronic hepatitis C without hepatic coma B18.2 [facility] [address] [facility] [id number] [address] [place] [id number] Sep, [facility] [address] [facility] [id number] [address] [place] [address] Aug, Gastroenteritis K52.9 [facility] [address] [id number] [address] [place] [phone] Aug, [facility] [address] [id number] [address] [place] [id number] Aug, [facility] [address] [facility] [id number] [address] [place] [phone] Aug, [facility] [address] [facility] [id number] [address] [place] [phone] Aug, [facility] [address] [id number] [address] [place] [phone] Jul, Encounter for immunization Z 23 ; Sinus tachycardia R00.0 and Chronic hepatitis C without hepatic coma B18.2 [facility] [address] [id number] [address] [place] [address] Jun, Chronic hepatitis C without hepatic coma B18.2 [facility] [address] [id number] [address] [place] [address] Jun, Chronic hepatitis C without hepatic coma B18.2 [place] [address] [place] [id number] [address] [place] [address] May, Anxiety disorder, unspecifie d F41.9 [place] [address] [place] [id number] [place] [address] May, Bronchitis J40 and Eustachia n tube dysfunction, bilateral H69.83 [place] [address] [place] [id number] [place] [address] May, Chronic hepatitis C without hepatic coma B18.2 [place] [address] [address] May, Chronic hepatitis C without hepatic coma B18.2 [place] [address] [place] [id number] [address] [place] [address] May, [place] [address] [address] Apr, Abnormal LFTs R79.89 [place] [address] [address] 14 Apr, 2016 Abnormal LFTs R79.89 [place] [address] [place] [id number] [address] [place] [phone] 11 Apr, 2016 Obesity E66.9 ; Hypothyroidi sm, unspecified E03.9 and Hyperlipidemia, unspecified hyperlipidemia type E78.5 [place] [address] [place] [id number] [address] [place] [address] 10 Apr, 2016 Obesity E66.9 ; Hypothyroidi sm, unspecified E03.9 and Hyperlipidemia, unspecified hyperlipidemia type E78.5 [place] [address] [place] [id number] [address] [place] [address] Apr, Visit for TB skin test Z11.1 [place] [address] [facility] [id number] [address] [place] [address] November, Obesity E66.9 [place] [address] [facility] [id number] [address] [place] [address] Oct, Obesity E66.9 [place] [address] [place] [id number] [place] [address] Oct, Essential hypertension I10 ; Hypothyroidism, unspecified E03.9 and Obesity E66.9 [place] [address] [facility] [id number] [address] [place] [address] Jun, [place] [address] [facility] [id number] [address] [place] [address] May, Essential hypertension I10 ; Allergic rhinitis J30.9 ; Hypothyroidism, unspecified E03.9 and Otitis media, unspecified, bilateral H66.93 [place] [address] [place] [id number] [address] [place] [address] May, Unspecified hypothyroidism 2 44.9 and Screening for hypertension V81.1 [place] [address] [place] [id number] [address] [place] [address] May, [place] [address] [place] [id number] [address] [place] [address] Apr, Hypothyroidism, unspecified E03.9 and Anxiety disorder, unspecified F41.9 [place] [address] [place] [id number] [address] [place] [address] Feb, Essential hypertension, humza gn 401.1 [place] [address] [place] [id number] [address] [place] [address] Feb, Unspecified hypothyroidism 2 44.9 and Screening for hypertension V81.1 [place] [address] [facility] [id number] [address] [place] [address] Feb, Essential hypertension, humza gn 401.1 ; Anxiety state, unspecified 300.00 and Rash of groin 782.1 [facility] [address] [id number] [address] [place] [address] Feb, [facility] [address] [id number] [address] [place] [phone] Dec, Essential hypertension, humza gn 401.1 ; Anxiety state, unspecified 300.00 and Rash of groin 782.1 [facility] [address] [id number] [address] [place] [address] November, [facility] [address] [id number] [address] [place] [phone] Oct, [facility] [address] [id number] [address] [place] [phone] Oct, [facility] [address] [id number] [address] [place] [phone] Sep, [facility] [address] [id number] [address] [place] [phone] Sep, [facility] [address] [id number] [address] [place] [phone] Aug, [facility] [address] [id number] [address] [place] [phone] Aug, [facility] [address] [id number] [address] [place] [phone] Jul, [facility] [address] [id number] [address] [place] [id number] Jul, [facility] [address] [id number] [address] [place] [phone] Jun, [facility] [address] [id number] [address] [place] [phone] Jun, [facility] [address] [id number] [address] [place] [phone] Jun, [facility] [address] [id number] [facility] [place] [address] Jun, [facility] [address] [id number] [facility] [place] [address] Jun, [facility] [address] [id number] [facility] [place] [address] Jun, [facility] [address] [id number] [address] [place] [address], [place] [id number] Jun, [facility] [address] [id number] [facility] [place] [address] Jun, [facility] [address] [id number] [address] [place] [address], [place] [address] May, [facility] [address] [id number] [address] [place] [address], [place] [address] May, [facility] [address] [id number] [address] [place] [address], [place] [address] Feb, [facility] [address] [id number] [address] [place] [address], [place] [address] Feb, [facility] [address] [id number] [address] [place] [address], [place] [address] Feb, [facility] [address] [id number] [address] [place] [address], [place] [address] Feb, [facility] [address] [id number] [address] [place] [address], [place] [address] Feb, [facility] [address] [id number] [address] [place] [address], [place] [address] Feb, [facility] [address] [id number] [address] [place] [address], [place] [address] Feb, [facility] [address] [id number] [address] [place] [address], [place] [address] Feb, [facility] [address] [id number] [address] [place] [address], [place] [address] Feb, [facility] [address] [id number] [facility] [place] [address] Feb, [facility] [address] [id number] [address] [place] [address], [place] [address] Feb, [facility] [address] [id number] [address] [place] [address], [place] [address] Feb, [facility] [address] [id number] [address] [place] [address], [place] [address] Jan, [facility] [address] [id number] [address] [place] [address], [place] [address] Jan, [facility] [address] [id number] [address] [place] [address], [place] [address] Jan, [facility] [address] [id number] [address] [place] [address], [place] [address] Jan, [facility] [address] [id number] [address] [place] [address], [place] [address] Dec, [facility] [address] [id number] [address] [place] [address], [place] [address] Dec, [facility] [address] [id number] [address] [place] [address], [place] [address] Oct, [facility] [address] [id number] [address] [place] [address], [place] [address] Oct, [facility] [address] [id number] [address] [place] [address], [place] [address] Oct, [facility] [address] [id number] [address] [place] [address], [place] [address] Oct, [facility] [address] [id number] [address] [place] [address], [place] [address] Oct, [facility] [address] [id number] [address] [place] [address], [place] [address] Oct, [facility] [address] [id number] [address] [place] [phone] Oct, [facility] [address] [id number] [address] [place] [phone] Aug, [facility] [address] [id number] [address] [place] [phone] Aug, [facility] [address] [id number] [address] [place] [phone] Jul, [facility] [address] [id number] [address] [place] [phone] Jul, [facility] [address] [id number] [address] [place] [phone] Jul, [facility] [address] [id number] [address] [place] [phone] Jul, [facility] [address] [id number] [address] [place] [phone] Jun, [facility] [address] [id number] [address] [place] [id number] Jun, [facility] [address] [id number] [address] [place] [phone] May, [facility] [address] [id number] [address] [place] [phone] May, [facility] [address] [id number] [address] [place] [phone] May, [facility] [address] [id number] [address] [place] [phone] Oct, [facility] [address] [id number] [address] [place] [phone] Oct, IMMUNIZATIONS No Known Immunizations SOCIAL HISTORY [...]
--- OUTSIDE RECORDS SUMMARY | 2019-10-01 04:59 | XMS REPORT ---
Author Author Mike Valentino Organization [facility] Address [address] [place] [address] Care Team Providers Care Marine Mechanic Name Role Phone RHETT Valentino Unavailable PROBLEMS Type Condition ICD9-CM Code VEL46-BN Code Onset Dates Condition S tatus SNOMED Code Problem Hypothyroidism, unspecified E03.9 Ac tive 99022820 Problem Obesity E66.9 Active 038576383 Problem Essential hypertension I10 Active 65595332 Problem Prediabetes R73.03 Active 09753102 2 Problem Anxiety disorder, unspecified F41.9 Active 958963894 Problem Carpal tunnel syndrome of right wrist G56.01 Active 032967706438859 Problem Allergic rhinitis J30.9 Active 61 156829 Problem Hyperlipidemia, unspecified hyperlipidemia type E7 8.5 Active 60565935 Problem Chronic hepatitis C without hepatic coma B18.2 Active 641784296 Problem Reactive depression F32.9 Active 51418860 ALLERGIES No Information ENCOUNTERS Encounter Location Date Diagnosis [facility] [address] [facility] [id number] [address] [place] [address] [id number] Jan, Dental examination Z01.20 an d Caries K02.9 [facility] [address] [id number] [address] [place] [phone] Aug, BMI 45.0-49.9, adult Z68.42 ; Chest congestion R09.89 ; Acute URI J06.9 and Morbid obesity E66.01 [facility] [address] [id number] [address] [place] [phone] Jul, Cough due to bronchospasm J9 8.01 ; Shortness of breath R06.02 ; Obesity E66.9 and Acute bronchitis, viral J20.8 [facility] [address] [id number] [address] [place] [phone] Jul, [facility] [address] [id number] [address] [place] [phone] Apr, [facility] [id number] [place] [phone] Feb, Elevated glucose R73.09 ; Ca rpal tunnel syndrome of right wrist G56.01 ; Prediabetes R73.03 and BMI 40.0-44.9, adult Z68.41 [place] [id number] [place] [phone] Oct, Essential hypertension I10 ; Hypothyroidism, unspecified E03.9 and Dysfunction of left eustachian tube H69.82 [place] [address] [id number] [place] [id number] Sep, Chronic hepatitis C without hepatic coma B18.2 and Hypothyroidism, unspecified E03.9 [place] [address] [address] Sep, Hypothyroidism, unspecified E03.9 [place] [address] [id number] [address] [place] [phone] May, Chronic hepatitis C without hepatic coma B18.2 [place] [address] [id number] [address] [place] [phone] May, [place] [address] [id number] [address] [place] [phone] Apr, Hypothyroidism, unspecified E03.9 and Chronic hepatitis C without hepatic coma B18.2 [place] [address] [place] [id number] [address] [place] [phone] Apr, Chronic hepatitis C without hepatic coma B18.2 [place] [address] [id number] [address] [place] [id number] Mar, Reactive depression F32.9 an d Hypothyroidism, unspecified E03.9 [place] [address] [place] [id number] [address] [place] [phone] Feb, Reactive depression F32.9 an d Anxiety disorder, unspecified F41.9 [facility] [address] [facility] [id number] [address] [place] [phone] Feb, Chronic hepatitis C without hepatic coma B18.2 [facility] [address] [facility] [id number] [address] [place] [phone] Jan, Chronic hepatitis C without hepatic coma B18.2 [facility] [address] [facility] [id number] [address] [place] [phone] November, Encounter for immunization Z 23 and Chronic hepatitis C without hepatic coma B18.2 [facility] [address] [facility] [id number] [address] [place] [phone] November, [facility] [address] [facility] [id number] [address] [place] [phone] Oct, Chronic hepatitis C without hepatic coma B18.2 [facility] [address] [facility] [id number] [address] [place] [phone] Sep, [facility] [address] [facility] [id number] [address] [place] [phone] Aug, Gastroenteritis K52.9 [facility] [address] [facility] [id number] [address] [place] [phone] Aug, [facility] [address] [facility] [id number] [address] [place] [phone] Aug, [facility] [address] [facility] [id number] [address] [place] [phone] Aug, [facility] [address] [facility] [id number] [address] [place] [phone] Aug, [facility] [address] [facility] [id number] [address] [place] [phone] Jul, Encounter for immunization Z 23 ; Sinus tachycardia R00.0 and Chronic hepatitis C without hepatic coma B18.2 [facility] [address] [id number] [address] [place] [id number] Jun, Chronic hepatitis C without hepatic coma B18.2 [facility] [address] [id number] [address] [place] [phone] Jun, Chronic hepatitis C without hepatic coma B18.2 [facility] [address] [id number] [address] [place] [id number] May, Anxiety disorder, unspecifie d F41.9 [facility] [address] [id number] [address] [place] [phone] May, Bronchitis J40 and Eustachia n tube dysfunction, bilateral H69.83 [place] [address] [place] [id number] [address] [place] [phone] May, Chronic hepatitis C without hepatic coma B18.2 [place] [address] [address] May, Chronic hepatitis C without hepatic coma B18.2 [place] [address] [place] [id number] [address] [place] [phone] May, [place] [address] [id number] [address] [place] [phone] Apr, Abnormal LFTs R79.89 [place] [id number] [place] [phone] 14 Apr, 2016 Abnormal LFTs R79.89 [place] [address] [place] [id number] [address] [place] [phone] 11 Apr, 2016 Obesity E66.9 ; Hypothyroidi sm, unspecified E03.9 and Hyperlipidemia, unspecified hyperlipidemia type E78.5 [place] [address] [place] [id number] [address] [place] [phone] 10 Apr, 2016 Obesity E66.9 ; Hypothyroidi sm, unspecified E03.9 and Hyperlipidemia, unspecified hyperlipidemia type E78.5 [place] [address] [place] [phone] Apr, Visit for TB skin test Z11.1 [place] [address] [id number] November, Obesity E66.9 [place] [address] [address] Oct, Obesity E66.9 [place] [address] [address] Oct, Essential hypertension I10 ; Hypothyroidism, unspecified E03.9 and Obesity E66.9 [place] [address] [address] Jun, [place] [address] [phone] May, Essential hypertension I10 ; Allergic rhinitis J30.9 ; Hypothyroidism, unspecified E03.9 and Otitis media, unspecified, bilateral H66.93 [place] [address] [address] May, Unspecified hypothyroidism 2 44.9 and Screening for hypertension V81.1 [place] [address] [address] May, [place] [address] [address] Apr, Hypothyroidism, unspecified E03.9 and Anxiety disorder, unspecified F41.9 [place] [address] [address] Feb, Essential hypertension, humza gn 401.1 [place] [address] [address] Feb, Unspecified hypothyroidism 2 44.9 and Screening for hypertension V81.1 [place] [address] [address] Feb, Essential hypertension, humza gn 401.1 ; Anxiety state, unspecified 300.00 and Rash of groin 782.1 [facility] [address] [id number] [address] [place] [address], [place] [address] Feb, [facility] [address] [id number] [address] [place] [phone] Dec, Essential hypertension, humza gn 401.1 ; Anxiety state, unspecified 300.00 and Rash of groin 782.1 [facility] [address] [id number] [address] [place] [phone] November, [facility] [address] [id number] [address] [place] [id number] Oct, [facility] [address] [id number] [address] [place] [phone] Oct, [facility] [address] [id number] [address] [place] [phone] Sep, [facility] [address] [id number] [address] [place] [phone] Sep, [facility] [address] [id number] [address] [place] [phone] Aug, [facility] [address] [id number] [address] [place] [phone] Aug, [facility] [address] [id number] [address] [place] [phone] Jul, [facility] [address] [id number] [address] [place] [phone] Jul, [facility] [address] [id number] [address] [place] [phone] Jun, [facility] [address] [id number] [address] [place] [phone] Jun, [facility] [address] [id number] [address] [place] [phone] Jun, [facility] [address] [id number] [facility] [place] [address] Jun, [facility] [address] [id number] [address] [place] [address], [place] [address] Jun, [facility] [address] [id number] [address] [place] [address], [place] [address] Jun, [facility] [address] [id number] [address] [place] [address], [place] [address] Jun, [facility] [address] [id number] [address] [place] [address], [place] [address] Jun, [facility] [address] [id number] [address] [place] [address], [place] [address] May, [facility] [address] [id number] [address] [place] [address], [place] [address] May, [facility] [address] [id number] [address] [place] [address], [place] [id number] Feb, [facility] [address] [id number] [address] [place] [address], [place] [address] Feb, [facility] [address] [id number] [address] [place] [address], [place] [id number] Feb, [facility] [address] [id number] [address] [place] [address], [place] [id number] Feb, [facility] [address] [id number] [address] [place] [address], [place] [address] Feb, [facility] [address] [id number] [address] [place] [address], [place] [id number] Feb, [facility] [address] [id number] [address] [place] [address], [place] [address] Feb, [facility] [address] [id number] [address] [place] [address], [place] [address] Feb, [facility] [address] [id number] [address] [place] [address], [place] [address] Feb, [facility] [address] [id number] [address] [place] [address], [place] [address] Feb, [facility] [address] [id number] [address] [place] [address], [place] [address] Feb, [facility] [address] [id number] [address] [place] [address], [place] [address] Feb, [facility] [address] [id number] [address] [place] [address], [place] [address] Jan, [facility] [address] [id number] [address] [place] [address], [place] [address] Jan, [facility] [address] [id number] [address] [place] [address], [place] [address] Jan, [facility] [address] [id number] [address] [place] [address], [place] [address] Jan, [facility] [address] [id number] [address] [place] [address], [place] [address] Dec, [facility] [address] [id number] [address] [place] [address], [place] [address] Dec, [facility] [address] [id number] [address] [place] [address], [place] [address] Oct, [facility] [address] [id number] [address] [place] [address], [place] [address] Oct, [facility] [address] [id number] [address] [place] [address], [place] [address] Oct, [facility] [address] [id number] [address] [place] [address], [place] [address] Oct, [facility] [address] [id number] [address] [place] [address], [place] [address] Oct, [facility] [address] [id number] [address] [place] [address], [place] [address] Oct, [facility] [address] [id number] [address] [place] [id number] Oct, [facility] [address] [id number] [address] [place] [phone] Aug, [facility] [address] [id number] [address] [place] [id number] Aug, [facility] [address] [id number] [address] [place] [phone] Jul, [facility] [address] [id number] [address] [place] [phone] Jul, [facility] [address] [id number] [address] [place] [phone] Jul, [facility] [address] [id number] [address] [place] [phone] Jul, [facility] [address] [id number] [address] [place] [id number] Jun, [facility] [address] [id number] [address] [place] [id number] Jun, [facility] [address] [id number] [address] [place] [phone] May, [facility] [address] [id number] [address] [place] [phone] May, [facility] [address] [id number] [address] [place] [phone] May, [facility] [address] [id number] [address] [place] [phone] Oct, [facility] [address] [id number] [address] [place] [id number] Oct, IMMUNIZATIONS No Known Immunizations SOCIAL HISTORY [...]
--- OUTSIDE RECORDS SUMMARY | 2019-10-01 04:59 | XMS REPORT ---
Author Author Mike Valentino Organization [facility] Address [address] [place] [address] Care Team Providers Care Surgical Attendant Name Role Phone RHETT Valentino Unavailable PROBLEMS Type Condition ICD9-CM Code WIK43-FQ Code Onset Dates Condition S tatus SNOMED Code Problem Hypothyroidism, unspecified E03.9 Ac tive 88985816 Problem Obesity E66.9 Active 161646995 Problem Essential hypertension I10 Active 49202874 Problem Prediabetes R73.03 Active 47445568 2 Problem Anxiety disorder, unspecified F41.9 Active 870643181 Problem Carpal tunnel syndrome of right wrist G56.01 Active [id number] Problem Allergic rhinitis J30.9 Active 61 905817 Problem Hyperlipidemia, unspecified hyperlipidemia type E7 8.5 Active 24482241 Problem Chronic hepatitis C without hepatic coma B18.2 Active 365714853 Problem Reactive depression F32.9 Active 38314035 ALLERGIES No Information ENCOUNTERS Encounter Location Date Diagnosis [facility] [address] [id number] [address] [place] [address] Feb, [facility] [address] [id number] [address] [place] [id number] Jan, Dental examination Z01.20 an d Caries K02.9 [facility] [address] [facility] [id number] [address] [place] [address] Aug, BMI 45.0-49.9, adult Z68.42 ; Chest congestion R09.89 ; Acute URI J06.9 and Morbid obesity E66.01 [facility] [address] [facility] [id number] [address] [place] [address] Jul, Cough due to bronchospasm J9 8.01 ; Shortness of breath R06.02 ; Obesity E66.9 and Acute bronchitis, viral J20.8 [facility] [address] [facility] [id number] [address] [place] [id number] Jul, [facility] [address] [facility] [id number] [address] [place] [id number] Apr, [facility] [address] [facility] [id number] [address] [place] [address] Feb, Elevated glucose R73.09 ; Ca rpal tunnel syndrome of right wrist G56.01 ; Prediabetes R73.03 and BMI 40.0-44.9, adult Z68.41 [facility] [address] [facility] [id number] [address] [place] [id number] Oct, Essential hypertension I10 ; Hypothyroidism, unspecified E03.9 and Dysfunction of left eustachian tube H69.82 [facility] [id number] [address] [place] [id number] Sep, Chronic hepatitis C without hepatic coma B18.2 and Hypothyroidism, unspecified E03.9 [facility] [id number] [address] [place] [address] Sep, Hypothyroidism, unspecified E03.9 [facility] [id number] [address] [place] [address] May, Chronic hepatitis C without hepatic coma B18.2 [facility] [id number] [address] [place] [address] May, [facility] [id number] [address] [place] [address] Apr, Hypothyroidism, unspecified E03.9 and Chronic hepatitis C without hepatic coma B18.2 [facility] [address] [facility] [id number] [address] [place] [address] Apr, Chronic hepatitis C without hepatic coma B18.2 [facility] [id number] [place] [id number] Mar, Reactive depression F32.9 an d Hypothyroidism, unspecified E03.9 [facility] [address] [facility] [id number] [address] [place] [address] Feb, Reactive depression F32.9 an d Anxiety disorder, unspecified F41.9 [facility] [address] [facility] [id number] [address] [place] [id number] Feb, Chronic hepatitis C without hepatic coma B18.2 [facility] [address] [facility] [id number] [address] [place] [id number] Jan, Chronic hepatitis C without hepatic coma B18.2 [facility] [address] [facility] [id number] [address] [place] [id number] November, Encounter for immunization Z 23 and Chronic hepatitis C without hepatic coma B18.2 [facility] [id number] [place] [address] November, [facility] [address] [facility] [id number] [address] [place] [address] Oct, Chronic hepatitis C without hepatic coma B18.2 [facility] [address] [facility] [id number] [address] [place] [address] Sep, [facility] [id number] [address] [place] [address] Aug, Gastroenteritis K52.9 [facility] [address] [facility] [id number] [address] [place] [id number] Aug, [facility] [address] [facility] [id number] [address] [place] [phone] Aug, [facility] [address] [facility] [id number] [address] [place] [id number] Aug, [facility] [address] [facility] [id number] [address] [place] [address] Aug, [facility] [id number] [address] [place] [id number] Jul, Encounter for immunization Z 23 ; Sinus tachycardia R00.0 and Chronic hepatitis C without hepatic coma B18.2 [facility] [id number] [place] [address] Jun, Chronic hepatitis C without hepatic coma B18.2 [facility] [address] [facility] [id number] [address] [place] [address] Jun, Chronic hepatitis C without hepatic coma B18.2 [facility] [id number] [address] [place] [address] May, Anxiety disorder, unspecifie d F41.9 [facility] [address] [address] May, Bronchitis J40 and Eustachia n tube dysfunction, bilateral H69.83 [place] [id number] [address] [place] [address] May, Chronic hepatitis C without hepatic coma B18.2 [facility] [id number] [address] [place] [address] May, Chronic hepatitis C without hepatic coma B18.2 [facility] [id number] [address] [place] [address] May, [facility] [id number] [address] [place] [address] Apr, Abnormal LFTs R79.89 [place] [id number] [address] [place] [id number] 14 Apr, 2016 Abnormal LFTs R79.89 [facility] [id number] [address] [place] [address] 11 Apr, 2016 Obesity E66.9 ; Hypothyroidi sm, unspecified E03.9 and Hyperlipidemia, unspecified hyperlipidemia type E78.5 [facility] [id number] [address] [place] [id number] 10 Apr, 2016 Obesity E66.9 ; Hypothyroidi sm, unspecified E03.9 and Hyperlipidemia, unspecified hyperlipidemia type E78.5 [address] [address] [address] Apr, Visit for TB skin test Z11.1 [address] [address] [address] November, Obesity E66.9 [address] [address] [address] Oct, Obesity E66.9 [address] [address] [address] Oct, Essential hypertension I10 ; Hypothyroidism, unspecified E03.9 and Obesity E66.9 [address] [address] [address] [address] Jun, [address] [address] [address] May, Essential hypertension I10 ; Allergic rhinitis J30.9 ; Hypothyroidism, unspecified E03.9 and Otitis media, unspecified, bilateral H66.93 [address] [address] [address] May, Unspecified hypothyroidism 2 44.9 and Screening for hypertension V81.1 [address] [address] [address] May, [address] [address] [address] Apr, Hypothyroidism, unspecified E03.9 and Anxiety disorder, unspecified F41.9 [address] [address] [address] [address] Feb, Essential hypertension, humza gn 401.1 [address] [address] [address] [address] Feb, Unspecified hypothyroidism 2 44.9 and Screening for hypertension V81.1 [place] [address] [id number] [address] [place] [address], [place] [address] Feb, Essential hypertension, humza gn 401.1 ; Anxiety state, unspecified 300.00 and Rash of groin 782.1 [facility] [address] [id number] [address] [place] [address], [place] [address] Feb, [facility] [address] [id number] [address] [place] [id number] Dec, Essential hypertension, humza gn 401.1 ; Anxiety state, unspecified 300.00 and Rash of groin 782.1 [facility] [address] [id number] [address] [place] [address] November, [facility] [address] [id number] [address] [place] [id number] Oct, [facility] [address] [id number] [address] [place] [id number] Oct, [facility] [address] [id number] [address] [place] [address] Sep, [facility] [address] [id number] [address] [place] [address] Sep, [facility] [address] [id number] [address] [place] [id number] Aug, [facility] [address] [id number] [address] [place] [address], [place] [address] Aug, [facility] [address] [id number] [address] [place] [address] Jul, [facility] [address] [id number] [address] [place] [address] Jul, [facility] [address] [id number] [address] [place] [address] Jun, [facility] [address] [id number] [address] [place] [address] Jun, [facility] [address] [id number] [facility] [place] [address] Jun, [facility] [address] [id number] [address] [place] [address], [place] [address] Jun, [facility] [address] [id number] [address] [place] [address], [place] [address] Jun, [facility] [address] [id number] [address] [place] [address], [place] [address] Jun, [facility] [address] [id number] [address] [place] [address], [place] [address] Jun, [facility] [address] [id number] [address] [place] [address], [place] [address] Jun, [facility] [address] [id number] [address] [place] [address], [place] [address] May, [facility] [address] [id number] [address] [place] [address], [place] [address] May, [facility] [address] [id number] [address] [place] [address], [place] [address] Feb, [facility] [address] [id number] [address] [place] [address], [place] [address] Feb, [facility] [address] [id number] [address] [place] [address], [place] [address] Feb, [facility] [address] [id number] [address] [place] [address], [place] [address] Feb, [facility] [address] [id number] [address] [place] [address], [place] [address] Feb, [facility] [address] [id number] [address] [place] [address], [place] [address] Feb, [facility] [address] [id number] [address] [place] [address], [place] [address] Feb, [facility] [address] [id number] [address] [place] [address], [place] [address] Feb, [facility] [address] [id number] [address] [place] [address], [place] [address] Feb, [facility] [address] [id number] [address] [place] [address], [place] [address] Feb, [facility] [address] [id number] [address] [place] [address], [place] [address] Feb, [facility] [address] [id number] [address] [place] [address], [place] [address] Feb, [facility] [address] [id number] [address] [place] [address], [place] [address] Jan, [facility] [address] [id number] [address] [place] [address], [place] [address] Jan, [facility] [address] [id number] [address] [place] [address], [place] [address] Jan, [facility] [address] [id number] [address] [place] [address], [place] [address] Jan, [facility] [address] [id number] [address] [place] [address], [place] [address] Dec, [facility] [address] [id number] [address] [place] [address], [place] [address] Dec, [facility] [address] [id number] [address] [place] [address], [place] [address] Oct, [facility] [address] [id number] [address] [place] [address], [place] [address] Oct, [facility] [address] [id number] [address] [place] [address], [place] [address] Oct, [facility] [address] [id number] [address] [place] [address], [place] [address] Oct, [facility] [address] [id number] [address] [place] [address], [place] [address] Oct, [facility] [address] [id number] [address] [place] [address] Oct, [facility] [address] [id number] [address] [place] [address] Oct, [facility] [address] [id number] [address] [place] [address] Aug, [facility] [address] [id number] [address] [place] [address] Aug, [facility] [address] [id number] [address] [place] [address] Jul, [facility] [address] [id number] [address] [place] [address] Jul, [facility] [address] [id number] [address] [place] [address] Jul, [facility] [address] [id number] [address] [place] [address] Jul, [facility] [address] [id number] [address] [place] [address] Jun, [facility] [address] [id number] [address] [place] [address] Jun, [facility] [address] [id number] [address] [place] [address] May, [facility] [address] [id number] [address] [place] [address] May, [facility] [address] [id number] [address] [place] [address] May, [facility] [address] [id number] [address] [place] [address] Oct, [facility] [address] [id number] [address] [place] [address] Oct, IMMUNIZATIONS No Known Immunizations SOCIAL HISTORY [...]
--- OUTSIDE RECORDS SUMMARY | 2019-10-01 05:00 | XMS REPORT ---
Author Author Mike PULIDO Organization [facility] Address [address] [place] [address] Care Team Providers Care Skills Instructor Name Role Phone CYRUS PULIDO Unavailable PROBLEMS Type Condition ICD9-CM Code GNO50-QH Code Onset Dates Condition S tatus SNOMED Code Problem Hypothyroidism, unspecified E03.9 Ac tive 86821753 Problem Essential hypertension I10 Active 67885352 Problem Obesity E66.9 Active 574439810 Problem Anxiety disorder, unspecified F41.9 Active 622208739 Problem Carpal tunnel syndrome of right wrist G56.01 Active [id number] Problem Prediabetes R73.03 Active 23670587 2 Problem Hyperlipidemia, unspecified hyperlipidemia type E7 8.5 Active 96269484 Problem Allergic rhinitis J30.9 Active 61 024943 Problem Reactive depression F32.9 Active 13843082 Problem Chronic hepatitis C without hepatic coma B18.2 Active [id number] ALLERGIES No Information ENCOUNTERS Encounter Location Date Diagnosis [place] [id number] [place] [id number] [address] [place] [address] Apr, [place] [address] [place] [id number] [address] [place] [address] Feb, Elevated glucose R73.09 ; Ca rpal tunnel syndrome of right wrist G56.01 ; Prediabetes R73.03 and BMI 40.0-44.9, adult Z68.41 [place] [address] [facility] [id number] [address] [place] [address] Oct, Essential hypertension I10 ; Hypothyroidism, unspecified E03.9 and Dysfunction of left eustachian tube H69.82 [facility] [address] [facility] [id number] [address] [place] [address] Sep, Chronic hepatitis C without hepatic coma B18.2 and Hypothyroidism, unspecified E03.9 [facility] [address] [facility] [id number] [address] [place] [address] Sep, Hypothyroidism, unspecified E03.9 [facility] [address] [facility] [id number] [address] [place] [address] May, Chronic hepatitis C without hepatic coma B18.2 [facility] [address] [facility] [id number] [address] [place] [address] May, [facility] [address] [facility] [id number] [address] [place] [address] Apr, Hypothyroidism, unspecified E03.9 and Chronic hepatitis C without hepatic coma B18.2 [facility] [address] [facility] [id number] [address] [place] [address] Apr, Chronic hepatitis C without hepatic coma B18.2 [facility] [address] [facility] [id number] [address] [place] [address] Mar, Reactive depression F32.9 an d Hypothyroidism, unspecified E03.9 [facility] [address] [facility] [id number] [address] [place] [address] Feb, Reactive depression F32.9 an d Anxiety disorder, unspecified F41.9 [facility] [address] [facility] [id number] [address] [place] [address] Feb, Chronic hepatitis C without hepatic coma B18.2 [facility] [address] [facility] [id number] [address] [place] [address] Jan, Chronic hepatitis C without hepatic coma B18.2 [facility] [address] [facility] [id number] [address] [place] [address] November, Encounter for immunization Z 23 and Chronic hepatitis C without hepatic coma B18.2 [facility] [address] [facility] [id number] [address] [place] [address] November, [facility] [address] [facility] [id number] [address] [place] [address] Oct, Chronic hepatitis C without hepatic coma B18.2 [facility] [address] [place] [id number] [address] [place] [address] Sep, [facility] [address] [place] [id number] [address] [place] [address] Aug, Gastroenteritis K52.9 [facility] [address] [place] [id number] [address] [place] [address] Aug, [facility] [address] [place] [id number] [place] [address] Aug, [facility] [address] [address] Aug, [facility] [address] [place] [id number] [place] [address] Aug, [facility] [address] [address] Jul, Encounter for immunization Z 23 ; Sinus tachycardia R00.0 and Chronic hepatitis C without hepatic coma B18.2 [facility] [address] [address] Jun, Chronic hepatitis C without hepatic coma B18.2 [facility] [address] [address] Jun, Chronic hepatitis C without hepatic coma B18.2 [facility] [address] [address] May, Anxiety disorder, unspecifie d F41.9 [facility] [address] [address] May, Bronchitis J40 and Eustachia n tube dysfunction, bilateral H69.83 [facility] [address] [address] May, Chronic hepatitis C without hepatic coma B18.2 [facility] [address] [place] [id number] [place] [address] 07 May, 2016 Chronic hepatitis C without hepatic coma B18.2 [facility] [address] [facility] [id number] [address] [place] [address] May, [facility] [address] [facility] [id number] [address] [place] [address] 19 Apr, 2016 Abnormal LFTs R79.89 [place] [address] [place] [id number] [address] [place] [address] 14 Apr, 2016 Abnormal LFTs R79.89 [place] [address] [place] [id number] [place] [address] 11 Apr, 2016 Obesity E66.9 ; Hypothyroidi sm, unspecified E03.9 and Hyperlipidemia, unspecified hyperlipidemia type E78.5 [place] [address] [place] [id number] [place] [address] Apr, Obesity E66.9 ; Hypothyroidi sm, unspecified E03.9 and Hyperlipidemia, unspecified hyperlipidemia type E78.5 [place] [address] [place] [id number] [place] [address] Apr, Visit for TB skin test Z11.1 [place] [address] [place] [id number] [place] [address] November, Obesity E66.9 [place] [address] [place] [id number] [place] [address] Oct, Obesity E66.9 [facility] [address] [facility] [id number] [address] [place] [address] Oct, Essential hypertension I10 ; Hypothyroidism, unspecified E03.9 and Obesity E66.9 [facility] [address] [facility] [id number] [address] [place] [address] Jun, [facility] [address] [place] [id number] [address] [place] [address] May, Essential hypertension I10 ; Allergic rhinitis J30.9 ; Hypothyroidism, unspecified E03.9 and Otitis media, unspecified, bilateral H66.93 [place] [address] [address] May, Unspecified hypothyroidism 2 44.9 and Screening for hypertension V81.1 [place] [address] [address] May, [place] [address] [address] Apr, Hypothyroidism, unspecified E03.9 and Anxiety disorder, unspecified F41.9 [place] [address] [address] Feb, Essential hypertension, humza gn 401.[address] [address] Feb, Unspecified hypothyroidism 2 44.9 and Screening for hypertension V81.1 [place] [address] [address] Feb, Essential hypertension, humza gn 401.1 ; Anxiety state, unspecified 300.00 and Rash of groin 782.1 [place] [address] [address] Feb, [place] [address] [address] Dec, Essential hypertension, humza gn 401.1 ; Anxiety state, unspecified 300.00 and Rash of groin 782.1 [place] [address] [place] [id number] [address] [place] [address] November, [place] [address] [address] Oct, [place] [address] [address] Oct, [place] [address] [place] [address] Sep, [facility] [address] [id number] [address] [place] [address], [place] [address] Sep, [facility] [address] [id number] [address] [place] [address], [place] [address] Aug, [facility] [address] [id number] [address] [place] [address], [place] [address] Aug, [facility] [address] [id number] [address] [place] [address], [place] [address] Jul, [facility] [address] [id number] [address] [place] [address], [place] [address] Jul, [facility] [address] [id number] [address] [place] [address], [place] [address] Jun, [facility] [address] [id number] [address] [place] [address], [place] [address] Jun, [facility] [address] [id number] [address] [place] [address], [place] [address] Jun, [facility] [address] [id number] [address] [place] [address], [place] [address] Jun, [facility] [address] [id number] [address] [place] [address], [place] [address] Jun, [facility] [address] [id number] [address] [place] [address], [place] [address] Jun, [facility] [address] [id number] [address] [place] [address], [place] [address] Jun, [facility] [address] [id number] [address] [place] [address], [place] [address] Jun, [facility] [address] [id number] [address] [place] [address], [place] [address] May, [facility] [address] [id number] [address] [place] [address], [place] [address] May, [facility] [address] [id number] [address] [place] [address], [place] [address] Feb, [facility] [address] [id number] [address] [place] [address], [place] [address] Feb, [facility] [address] [id number] [address] [place] [address], [place] [address] Feb, [facility] [address] [id number] [address] [place] [address], [place] [address] Feb, [facility] [address] [id number] [address] [place] [address], [place] [address] Feb, [facility] [address] [id number] [address] [place] [address], [place] [address] Feb, [facility] [address] [id number] [address] [place] [address], [place] [address] Feb, [facility] [address] [id number] [address] [place] [address], [place] [address] Feb, [facility] [address] [id number] [address] [place] [address], [place] [address] Feb, [facility] [address] [id number] [address] [place] [address], [place] [address] Feb, [facility] [address] [id number] [address] [place] [address], [place] [address] Feb, [facility] [address] [id number] [address] [place] [address], [place] [address] Feb, [facility] [address] [id number] [address] [place] [address], [place] [address] Jan, [facility] [address] [id number] [address] [place] [address], [place] [address] Jan, [facility] [address] [id number] [address] [place] [address], [place] [address] Jan, [facility] [address] [id number] [address] [place] [address], [place] [address] Jan, [facility] [address] [id number] [address] [place] [address], [place] [address] Dec, [facility] [address] [id number] [address] [place] [address], [place] [address] Dec, [facility] [address] [id number] [address] [place] [address], [place] [address] Oct, [facility] [address] [id number] [address] [place] [address], [place] [address] Oct, [facility] [address] [id number] [address] [place] [address], [place] [address] Oct, [facility] [address] [id number] [address] [place] [address], [place] [address] Oct, [facility] [address] [id number] [address] [place] [address], [place] [address] Oct, [facility] [address] [id number] [address] [place] [address], [place] [address] Oct, [facility] [address] [id number] [address] [place] [address], [place] [address] Oct, [facility] [address] [id number] [address] [place] [address], [place] [address] Aug, [facility] [address] [id number] [address] [place] [address], [place] [address] Aug, [facility] [address] [id number] [address] [place] [address], [place] [address] Jul, [facility] [address] [id number] [address] [place] [address], [place] [address] Jul, [facility] [address] [id number] [address] [place] [address], [place] [address] Jul, [facility] [address] [id number] [address] [place] [address], [place] [address] Jul, [facility] [address] [id number] [address] [place] [address] Jun, [facility] [address] [facility] [id number] [address] [place] [address] Jun, [facility] [address] [id number] [address] [place] [address] May, [facility] [address] [facility] [id number] [address] [place] [address] May, [facility] [address] [facility] [id number] [address] [place] [address] May, [facility] [address] [facility] [id number] [address] [place] [address] Oct, [facility] [address] [facility] [id number] [address] [place] [address] Oct, IMMUNIZATIONS No Known Immunizations SOCIAL HISTORY Never Assessed REASON FOR VISIT Eye Exam PLAN OF CARE VITAL SIGNS MEDICATIONS Unknown [...]
--- OUTSIDE RECORDS SUMMARY | 2019-10-01 05:00 | XMS REPORT ---
Author Author Mike Valentino Organization [facility] Address [address] [place] [address] Care Team Providers Care Community Relations Officer Name Role Phone RHETT Valentino Unavailable PROBLEMS Type Condition ICD9-CM Code OOX43-NR Code Onset Dates Condition S tatus SNOMED Code Problem Hypothyroidism, unspecified E03.9 Ac tive 71116428 Problem Obesity E66.9 Active 823302760 Problem Essential hypertension I10 Active 19644418 Problem Prediabetes R73.03 Active 96462942 2 Problem Anxiety disorder, unspecified F41.9 Active 500013269 Problem Carpal tunnel syndrome of right wrist G56.01 Active 796781652703149 Problem Allergic rhinitis J30.9 Active 61 468894 Problem Hyperlipidemia, unspecified hyperlipidemia type E7 8.5 Active 15321592 Problem Chronic hepatitis C without hepatic coma B18.2 Active 244054573 Problem Reactive depression F32.9 Active 70196012 ALLERGIES No Information ENCOUNTERS Encounter Location Date Diagnosis [facility] [address] [facility] [id number] [address] [place] [id number] Jan, [facility] [address] [facility] [id number] [address] [place] [address] Aug, BMI 45.0-49.9, adult Z68.42 ; Chest congestion R09.89 ; Acute URI J06.9 and Morbid obesity E66.01 [facility] [address] [facility] [id number] [address] [place] [phone] Jul, Cough due to bronchospasm J9 8.01 ; Shortness of breath R06.02 ; Obesity E66.9 and Acute bronchitis, viral J20.8 [facility] [address] [facility] [id number] [address] [place] [phone] Jul, [facility] [address] [place] [id number] [address] [place] [phone] Apr, [place] [address] [place] [id number] [place] [address] Feb, Elevated glucose R73.09 ; Ca rpal tunnel syndrome of right wrist G56.01 ; Prediabetes R73.03 and BMI 40.0-44.9, adult Z68.41 [place] [address] [address] Oct, Essential hypertension I10 ; Hypothyroidism, unspecified E03.9 and Dysfunction of left eustachian tube H69.82 [place] [address] [address] Sep, Chronic hepatitis C without hepatic coma B18.2 and Hypothyroidism, unspecified E03.9 [place] [address] [address] Sep, Hypothyroidism, unspecified E03.9 [place] [address] [place] [id number] [place] [address] May, Chronic hepatitis C without hepatic coma B18.2 [place] [address] [address] May, [place] [address] [place] [id number] [address] [place] [address] Apr, Hypothyroidism, unspecified E03.9 and Chronic hepatitis C without hepatic coma B18.2 [place] [address] [place] [id number] [place] [address] Apr, Chronic hepatitis C without hepatic coma B18.2 [place] [address] [place] [id number] [place] [address] Mar, Reactive depression F32.9 an d Hypothyroidism, unspecified E03.9 [place] [address] [place] [id number] [place] [address] Feb, Reactive depression F32.9 an d Anxiety disorder, unspecified F41.9 [facility] [address] [facility] [id number] [address] [place] [phone] Feb, Chronic hepatitis C without hepatic coma B18.2 [facility] [address] [facility] [id number] [address] [place] [address] Jan, Chronic hepatitis C without hepatic coma B18.2 [facility] [address] [facility] [id number] [address] [place] [phone] November, Encounter for immunization Z 23 and Chronic hepatitis C without hepatic coma B18.2 [facility] [address] [facility] [id number] [address] [place] [phone] November, [facility] [address] [facility] [id number] [address] [place] [address] Oct, Chronic hepatitis C without hepatic coma B18.2 [facility] [address] [facility] [id number] [address] [place] [phone] Sep, [facility] [address] [facility] [id number] [address] [place] [phone] Aug, Gastroenteritis K52.9 [facility] [address] [facility] [id number] [address] [place] [phone] Aug, [facility] [address] [facility] [id number] [address] [place] [phone] Aug, [facility] [address] [facility] [id number] [address] [place] [phone] Aug, [facility] [address] [facility] [id number] [address] [place] [phone] Aug, [facility] [address] [facility] [id number] [address] [place] [phone] Jul, Encounter for immunization Z 23 ; Sinus tachycardia R00.0 and Chronic hepatitis C without hepatic coma B18.2 [facility] [address] [facility] [id number] [address] [place] [address] Jun, Chronic hepatitis C without hepatic coma B18.2 [facility] [address] [facility] [id number] [address] [place] [address] Jun, Chronic hepatitis C without hepatic coma B18.2 [facility] [address] [facility] [id number] [address] [place] [address] May, Anxiety disorder, unspecifie d F41.9 [facility] [address] [place] [id number] [place] [address] May, Bronchitis J40 and Eustachia n tube dysfunction, bilateral H69.83 [place] [address] [place] [id number] [address] [place] [phone] May, Chronic hepatitis C without hepatic coma B18.2 [place] [address] [place] [id number] [place] [phone] May, Chronic hepatitis C without hepatic coma B18.2 [place] [address] [place] [id number] [place] [phone] May, [place] [address] [place] [id number] [place] [phone] Apr, Abnormal LFTs R79.89 [place] [address] [place] [id number] [place] [phone] 14 Apr, 2016 Abnormal LFTs R79.89 [place] [address] [place] [id number] [place] [id number] 11 Apr, 2016 Obesity E66.9 ; Hypothyroidi sm, unspecified E03.9 and Hyperlipidemia, unspecified hyperlipidemia type E78.5 [place] [address] [place] [id number] [address] [place] [id number] 10 Apr, 2016 Obesity E66.9 ; Hypothyroidi sm, unspecified E03.9 and Hyperlipidemia, unspecified hyperlipidemia type E78.5 [place] [address] [place] [id number] [place] [phone] Apr, Visit for TB skin test Z11.1 [facility] [address] [address] November, Obesity E66.9 [place] [address] [address] Oct, Obesity E66.9 [place] [address] [address] Oct, Essential hypertension I10 ; Hypothyroidism, unspecified E03.9 and Obesity E66.9 [place] [address] [address] Jun, [place] [address] [address] May, Essential hypertension I10 ; Allergic rhinitis J30.9 ; Hypothyroidism, unspecified E03.9 and Otitis media, unspecified, bilateral H66.93 [place] [address] [address] May, Unspecified hypothyroidism 2 44.9 and Screening for hypertension V81.1 [place] [address] [address] May, [place] [address] [address] Apr, Hypothyroidism, unspecified E03.9 and Anxiety disorder, unspecified F41.9 [place] [address] [address] Feb, Essential hypertension, humza gn 401.1 [place] [address] [address] Feb, Unspecified hypothyroidism 2 44.9 and Screening for hypertension V81.1 [place] [address] [address] Feb, Essential hypertension, humza gn 401.1 ; Anxiety state, unspecified 300.00 and Rash of groin 782.1 [facility] [address] [id number] [address] [place] [phone] Feb, [facility] [address] [id number] [address] [place] [phone] Dec, Essential hypertension, humza gn 401.1 ; Anxiety state, unspecified 300.00 and Rash of groin 782.1 [facility] [address] [id number] [address] [place] [phone] November, [facility] [address] [id number] [address] [place] [phone] Oct, [facility] [address] [id number] [address] [place] [phone] Oct, [facility] [address] [id number] [address] [place] [address] Sep, [facility] [address] [id number] [address] [place] [phone] Sep, [facility] [address] [id number] [address] [place] [address] Aug, [facility] [address] [id number] [address] [place] [phone] Aug, [facility] [address] [id number] [address] [place] [phone] Jul, [facility] [address] [id number] [address] [place] [phone] Jul, [facility] [address] [id number] [address] [place] [phone] Jun, [facility] [address] [id number] [address] [place] [phone] Jun, [facility] [address] [id number] [address] [place] [phone] Jun, [facility] [address] [id number] [address] [place] [address], [place] [address] Jun, [facility] [address] [id number] [address] [place] [address], [place] [address] Jun, [facility] [address] [id number] [address] [place] [address], [place] [address] Jun, [facility] [address] [id number] [address] [place] [address], [place] [address] Jun, [facility] [address] [id number] [address] [place] [address], [place] [address] Jun, [facility] [address] [id number] [address] [place] [address], [place] [address] May, [facility] [address] [id number] [address] [place] [address], [place] [address] May, [facility] [address] [id number] [address] [place] [address], [place] [address] Feb, [facility] [address] [id number] [address] [place] [address], [place] [address] Feb, [facility] [address] [id number] [address] [place] [address], [place] [address] Feb, [facility] [address] [id number] [address] [place] [address], [place] [address] Feb, [facility] [address] [id number] [address] [place] [address], [place] [address] Feb, [facility] [address] [id number] [address] [place] [address], [place] [address] Feb, [facility] [address] [id number] [address] [place] [address], [place] [address] Feb, [facility] [address] [id number] [address] [place] [address], [place] [address] Feb, [facility] [address] [id number] [address] [place] [address], [place] [address] Feb, [facility] [address] [id number] [address] [place] [address], [place] [address] Feb, [facility] [address] [id number] [address] [place] [address], [place] [address] Feb, [facility] [address] [id number] [address] [place] [address], [place] [address] Feb, [facility] [address] [id number] [address] [place] [address], [place] [address] Jan, [facility] [address] [id number] [address] [place] [address], [place] [address] Jan, [facility] [address] [id number] [address] [place] [address], [place] [address] Jan, [facility] [address] [id number] [address] [place] [address], [place] [address] Jan, [facility] [address] [id number] [address] [place] [address], [place] [address] Dec, [facility] [address] [id number] [address] [place] [address], [place] [address] Dec, [facility] [address] [id number] [address] [place] [address], [place] [address] Oct, [facility] [address] [id number] [address] [place] [address], [place] [address] Oct, [facility] [address] [id number] [address] [place] [address], [place] [address] Oct, [facility] [address] [id number] [address] [place] [address], [place] [address] Oct, [facility] [address] [id number] [address] [place] [address], [place] [address] Oct, [facility] [address] [id number] [address] [place] [address], [place] [address] Oct, [facility] [address] [id number] [address] [place] [address], [place] [address] Oct, [facility] [address] [id number] [address] [place] [id number] Aug, [facility] [address] [id number] [address] [place] [id number] Aug, [facility] [address] [id number] [address] [place] [id number] Jul, [facility] [address] [id number] [address] [place] [address] Jul, [facility] [address] [id number] [address] [place] [phone] Jul, [facility] [address] [id number] [address] [place] [id number] Jul, [facility] [address] [id number] [address] [place] [address] Jun, [facility] [address] [id number] [address] [place] [address] Jun, [facility] [address] [id number] [address] [place] [address] May, [facility] [address] [id number] [address] [place] [address] May, [facility] [address] [id number] [address] [place] [phone] May, [facility] [address] [id number] [address] [place] [id number] Oct, [facility] [address] [id number] [address] [place] [id number] Oct, IMMUNIZATIONS No Known Immunizations SOCIAL HISTORY [...]
--- OUTSIDE RECORDS SUMMARY | 2019-10-01 05:00 | XMS REPORT ---
Author Author Mike Gordon Doctor Organization [facility] Address Unknown Phone Unavailable Care Team Providers Care Employment Training Specialist Name Role Phone Migration, Doctor Unavailable Unavailable PROBLEMS Type Condition ICD9-CM Code [id number] Code Onset Dates Condition S tatus SNOMED Code Problem Hypothyroidism, unspecified E03.9 Ac tive 69105503 Problem Obesity E66.9 Active 882488670 Problem Essential hypertension I10 Active 08985904 Problem Prediabetes R73.03 Active 00292497 2 Problem Anxiety disorder, unspecified F41.9 Active 797945020 Problem Carpal tunnel syndrome of right wrist G56.01 Active 862372101236928 Problem Allergic rhinitis J30.9 Active 61 240947 Problem Hyperlipidemia, unspecified hyperlipidemia type E7 8.5 Active 78263320 Problem Chronic hepatitis C without hepatic coma B18.2 Active 638944310 Problem Reactive depression F32.9 Active 84346448 ALLERGIES No Information ENCOUNTERS Encounter Location Date Diagnosis [facility] [address] [facility] [id number] [address] [place] [phone] Aug, BMI 45.0-49.9, adult Z68.42 ; Chest congestion R09.89 ; Acute URI J06.9 and Morbid obesity E66.01 [facility] [address] [facility] [id number] [address] [place] [address] Jul, Cough due to bronchospasm J9 8.01 ; Shortness of breath R06.02 ; Obesity E66.9 and Acute bronchitis, viral J20.8 [facility] [address] [facility] [id number] [address] [place] [phone] Jul, [facility] [address] [facility] [id number] [address] [place] [address] Apr, [facility] [address] [facility] [id number] [address] [place] [id number] 21 Aug, 2018 Elevated glucose R73.09 ; Ca rpal tunnel syndrome of right wrist G56.01 ; Prediabetes R73.03 and BMI 40.0-44.9, adult Z68.41 [facility] [address] [address] Oct, Essential hypertension I10 ; Hypothyroidism, unspecified E03.9 and Dysfunction of left eustachian tube H69.82 [facility] [address] [address] Sep, Chronic hepatitis C without hepatic coma B18.2 and Hypothyroidism, unspecified E03.9 [place] [address] [address] Sep, Hypothyroidism, unspecified E03.9 [place] [address] [address] May, Chronic hepatitis C without hepatic coma B18.2 [place] [address] [address] May, [facility] [address] [place] [id number] [place] [address] Apr, Hypothyroidism, unspecified E03.9 and Chronic hepatitis C without hepatic coma B18.2 [place] [address] [address] Apr, Chronic hepatitis C without hepatic coma B18.2 [place] [address] [address] Mar, Reactive depression F32.9 an d Hypothyroidism, unspecified E03.9 [place] [address] [place] [id number] [place] [address] Feb, Reactive depression F32.9 an d Anxiety disorder, unspecified F41.9 [place] [address] [place] [id number] [address] [place] [phone] Feb, Chronic hepatitis C without hepatic coma B18.2 [facility] [address] [facility] [id number] [address] [place] [address] Jan, Chronic hepatitis C without hepatic coma B18.2 [facility] [address] [facility] [id number] [address] [place] [phone] November, Encounter for immunization Z 23 and Chronic hepatitis C without hepatic coma B18.2 [facility] [address] [facility] [id number] [address] [place] [phone] November, [facility] [address] [facility] [id number] [address] [place] [id number] Oct, Chronic hepatitis C without hepatic coma B18.2 [facility] [address] [facility] [id number] [address] [place] [phone] Sep, [facility] [address] [facility] [id number] [address] [place] [phone] Aug, Gastroenteritis K52.9 [facility] [address] [facility] [id number] [address] [place] [phone] Aug, [facility] [address] [facility] [id number] [address] [place] [phone] Aug, [facility] [address] [facility] [id number] [address] [place] [phone] Aug, [facility] [address] [facility] [id number] [address] [place] [phone] Aug, [facility] [address] [facility] [id number] [address] [place] [phone] Jul, Encounter for immunization Z 23 ; Sinus tachycardia R00.0 and Chronic hepatitis C without hepatic coma B18.2 [facility] [address] [facility] [id number] [address] [place] [address] Jun, Chronic hepatitis C without hepatic coma B18.2 [facility] [address] [facility] [id number] [address] [place] [phone] Jun, Chronic hepatitis C without hepatic coma B18.2 [facility] [address] [facility] [id number] [address] [place] [phone] May, Anxiety disorder, unspecifie d F41.9 [facility] [address] [facility] [id number] [address] [place] [address] May, Bronchitis J40 and Eustachia n tube dysfunction, bilateral H69.83 [facility] [address] [facility] [id number] [address] [place] [address] 15 May, 2016 Chronic hepatitis C without hepatic coma B18.2 [facility] [address] [facility] [id number] [address] [place] [phone] May, Chronic hepatitis C without hepatic coma B18.2 [facility] [address] [facility] [id number] [address] [place] [phone] May, [place] [address] [facility] [id number] [address] [place] [phone] Apr, Abnormal LFTs R79.89 [place] [address] [facility] [id number] [address] [place] [phone] 14 Apr, 2016 Abnormal LFTs R79.89 [place] [address] [facility] [id number] [address] [place] [phone] 11 Apr, 2016 Obesity E66.9 ; Hypothyroidi sm, unspecified E03.9 and Hyperlipidemia, unspecified hyperlipidemia type E78.5 [place] [address] [facility] [id number] [address] [place] [id number] 10 Apr, 2016 Obesity E66.9 ; Hypothyroidi sm, unspecified E03.9 and Hyperlipidemia, unspecified hyperlipidemia type E78.5 [place] [address] [place] [id number] [place] [id number] 06 Apr, 2016 Visit for TB skin test Z11.1 [place] [address] [facility] [id number] [address] [place] [id number] November, Obesity E66.9 [facility] [address] [place] [id number] [place] [address] Oct, Obesity E66.9 [facility] [address] [place] [id number] [place] [phone] Oct, Essential hypertension I10 ; Hypothyroidism, unspecified E03.9 and Obesity E66.9 [facility] [address] [place] [id number] [place] [address] Jun, [facility] [address] [address] May, Essential hypertension I10 ; Allergic rhinitis J30.9 ; Hypothyroidism, unspecified E03.9 and Otitis media, unspecified, bilateral H66.93 [place] [address] [address] May, Unspecified hypothyroidism 2 44.9 and Screening for hypertension V81.1 [place] [address] [address] May, [facility] [address] [address] Apr, Hypothyroidism, unspecified E03.9 and Anxiety disorder, unspecified F41.9 [facility] [address] [address] Feb, Essential hypertension, humza gn 401.1 [facility] [address] [id number] Feb, Unspecified hypothyroidism 2 44.9 and Screening for hypertension V81.1 [facility] [address] [place] [id number] [address] [place] [address] Feb, Essential hypertension, humza gn 401.1 ; Anxiety state, unspecified 300.00 and Rash of groin 782.1 [facility] [address] [place] [id number] [address] [place] [phone] Feb, [facility] [address] [place] [id number] [place] [address] Dec, Essential hypertension, humza gn 401.1 ; Anxiety state, unspecified 300.00 and Rash of groin 782.1 [facility] [address] [id number] [address] [place] [address], [place] [address] November, [facility] [address] [id number] [address] [place] [id number] Oct, [facility] [address] [id number] [address] [place] [phone] Oct, [facility] [address] [id number] [address] [place] [phone] Sep, [facility] [address] [id number] [address] [place] [phone] Sep, [facility] [address] [id number] [address] [place] [phone] Aug, [facility] [address] [id number] [address] [place] [phone] Aug, [facility] [address] [id number] [address] [place] [address], [place] [address] Jul, [facility] [address] [id number] [address] [place] [phone] Jul, [facility] [address] [id number] [address] [place] [phone] Jun, [facility] [address] [id number] [address] [place] [phone] Jun, [facility] [address] [id number] [address] [place] [address], [place] [address] Jun, [facility] [address] [id number] [address] [place] [phone] Jun, [facility] [address] [id number] [address] [place] [id number] Jun, [facility] [address] [id number] [address] [place] [address] [place] [address] Jun, [facility] [address] [id number] [address] [place] [address], [place] [address] Jun, [facility] [address] [id number] [address] [place] [address], [place] [address] Jun, [facility] [address] [id number] [address] [place] [address], [place] [address] May, [facility] [address] [id number] [address] [place] [address], [place] [address] May, [facility] [address] [id number] [address] [place] [address], [place] [address] Feb, [facility] [address] [id number] [address] [place] [address], [place] [address] Feb, [facility] [address] [id number] [address] [place] [address], [place] [address] Feb, [facility] [address] [id number] [address] [place] [address], [place] [address] Feb, [facility] [address] [id number] [address] [place] [address], [place] [address] Feb, [facility] [address] [id number] [address] [place] [address], [place] [address] Feb, [facility] [address] [id number] [address] [place] [address], [place] [address] Feb, [facility] [address] [id number] [address] [place] [address], [place] [address] Feb, [facility] [address] [id number] [address] [place] [address], [place] [address] Feb, [facility] [address] [id number] [address] [place] [address], [place] [address] Feb, [facility] [address] [id number] [address] [place] [address], [place] [address] Feb, [facility] [address] [id number] [address] [place] [address], [place] [address] Feb, [facility] [address] [id number] [address] [place] [address], [place] [address] Jan, [facility] [address] [id number] [address] [place] [address], [place] [address] Jan, [facility] [address] [id number] [address] [place] [address], [place] [address] Jan, [facility] [address] [id number] [address] [place] [address], [place] [address] Jan, [facility] [address] [id number] [address] [place] [address], [place] [address] Dec, [facility] [address] [id number] [address] [place] [address], [place] [address] Dec, [facility] [address] [id number] [address] [place] [address], [place] [address] Oct, [facility] [address] [id number] [address] [place] [address], [place] [address] Oct, [facility] [address] [id number] [address] [place] [address], [place] [address] Oct, [facility] [address] [id number] [address] [place] [address], [place] [address] Oct, [facility] [address] [id number] [address] [place] [address], [place] [address] Oct, [facility] [address] [id number] [address] [place] [address], [place] [address] Oct, [facility] [address] [id number] [address] [place] [address], [place] [address] Oct, [facility] [address] [id number] [address] [place] [address], [place] [address] Aug, [facility] [address] [id number] [address] [place] [address], [place] [address] Aug, [facility] [address] [id number] [address] [place] [phone] Jul, [facility] [address] [id number] [address] [place] [phone] Jul, [facility] [address] [id number] [address] [place] [address] Jul, [facility] [address] [id number] [address] [place] [address] Jul, [facility] [address] [id number] [address] [place] [phone] Jun, [facility] [address] [id number] [address] [place] [address] Jun, [facility] [address] [id number] [address] [place] [phone] May, [facility] [address] [id number] [address] [place] [address] May, [facility] [address] [id number] [address] [place] [address] May, [facility] [address] [id number] [address] [place] [phone] Oct, [facility] [address] [id number] [address] [place] [phone] Oct, IMMUNIZATIONS No Known Immunizations SOCIAL HISTORY Never Assessed REASON FOR VISIT [facility] PLAN OF CARE VITAL SIGNS MEDICATIONS Medication Instructions Dosage Frequency Start Date End Date Duration S tatus Lisinopril 10 mg take 1 tablet by Ora l route 1 time per day for 30 days Take in am Jun, Active levothyroxine 75 mcg 1 Tablet by Oral route 1 time per day Jun, Active Aspirin 81 mg take 1 tablet (81 mg) by oral route once daily Oct, Active RESULTS No Results PROCEDURES No Known procedures [...]
--- OUTSIDE RECORDS SUMMARY | 2019-10-01 05:00 | XMS REPORT ---
Author Author Mike Gordon Doctor Organization [facility] Address Unknown Phone Unavailable Care Team Providers Care Swimmer Name Role Phone Migration, Doctor Unavailable Unavailable PROBLEMS Type Condition ICD9-CM Code [id number] Code Onset Dates Condition S tatus SNOMED Code Problem Hypothyroidism, unspecified E03.9 Ac tive 23182274 Problem Obesity E66.9 Active 112556616 Problem Essential hypertension I10 Active 81262619 Problem Prediabetes R73.03 Active 82526883 2 Problem Anxiety disorder, unspecified F41.9 Active 571874566 Problem Carpal tunnel syndrome of right wrist G56.01 Active 033175425330190 Problem Allergic rhinitis J30.9 Active 61 857562 Problem Hyperlipidemia, unspecified hyperlipidemia type E7 8.5 Active 57666996 Problem Chronic hepatitis C without hepatic coma B18.2 Active 899120082 Problem Reactive depression F32.9 Active 84109936 ALLERGIES No Information ENCOUNTERS Encounter Location Date Diagnosis [facility] [address] [facility] [id number] [address] [place] [address] Aug, BMI 45.0-49.9, adult Z68.42 ; Chest congestion R09.89 ; Acute URI J06.9 and Morbid obesity E66.01 [facility] [address] [place] [id number] [address] [place] [address] Jul, Cough due to bronchospasm J9 8.01 ; Shortness of breath R06.02 ; Obesity E66.9 and Acute bronchitis, viral J20.8 [facility] [address] [facility] [id number] [address] [place] [address] Jul, [facility] [address] [facility] [id number] [address] [place] [address] Apr, [facility] [address] [facility] [id number] [address] [place] [address] 21 Aug, 2018 Elevated glucose R73.09 ; Ca rpal tunnel syndrome of right wrist G56.01 ; Prediabetes R73.03 and BMI 40.0-44.9, adult Z68.41 [facility] [address] [address] Oct, Essential hypertension I10 ; Hypothyroidism, unspecified E03.9 and Dysfunction of left eustachian tube H69.82 [facility] [address] [address] Sep, Chronic hepatitis C without hepatic coma B18.2 and Hypothyroidism, unspecified E03.9 [place] [address] [address] Sep, Hypothyroidism, unspecified E03.9 [place] [address] [address] May, Chronic hepatitis C without hepatic coma B18.2 [place] [address] [address] May, [facility] [address] [place] [id number] [place] [address] Apr, Hypothyroidism, unspecified E03.9 and Chronic hepatitis C without hepatic coma B18.2 [place] [address] [address] Apr, Chronic hepatitis C without hepatic coma B18.2 [place] [address] [address] Mar, Reactive depression F32.9 an d Hypothyroidism, unspecified E03.9 [place] [address] [place] [id number] [place] [address] Feb, Reactive depression F32.9 an d Anxiety disorder, unspecified F41.9 [place] [address] [place] [id number] [address] [place] [address] Feb, Chronic hepatitis C without hepatic coma B18.2 [facility] [address] [facility] [id number] [address] [place] [address] Jan, Chronic hepatitis C without hepatic coma B18.2 [facility] [address] [facility] [id number] [address] [place] [address] November, Encounter for immunization Z 23 and Chronic hepatitis C without hepatic coma B18.2 [facility] [address] [facility] [id number] [address] [place] [address] November, [facility] [address] [facility] [id number] [address] [place] [address] Oct, Chronic hepatitis C without hepatic coma B18.2 [facility] [address] [facility] [id number] [address] [place] [address] Sep, [facility] [address] [facility] [id number] [address] [place] [address] Aug, Gastroenteritis K52.9 [facility] [address] [facility] [id number] [address] [place] [address] Aug, [facility] [address] [facility] [id number] [address] [place] [address] Aug, [facility] [address] [facility] [id number] [address] [place] [address] Aug, [facility] [address] [facility] [id number] [address] [place] [address] Aug, [facility] [address] [facility] [id number] [address] [place] [address] Jul, Encounter for immunization Z 23 ; Sinus tachycardia R00.0 and Chronic hepatitis C without hepatic coma B18.2 [facility] [address] [facility] [id number] [address] [place] [address] Jun, Chronic hepatitis C without hepatic coma B18.2 [facility] [address] [facility] [id number] [address] [place] [address] Jun, Chronic hepatitis C without hepatic coma B18.2 [facility] [address] [facility] [id number] [address] [place] [address] May, Anxiety disorder, unspecifie d F41.9 [facility] [address] [facility] [id number] [address] [place] [address] May, Bronchitis J40 and Eustachia n tube dysfunction, bilateral H69.83 [facility] [address] [facility] [id number] [address] [place] [address] 15 May, 2016 Chronic hepatitis C without hepatic coma B18.2 [facility] [address] [facility] [id number] [address] [place] [address] May, Chronic hepatitis C without hepatic coma B18.2 [facility] [address] [facility] [id number] [address] [place] [address] May, [place] [address] [facility] [id number] [address] [place] [address] Apr, Abnormal LFTs R79.89 [place] [address] [facility] [id number] [address] [place] [address] 14 Apr, 2016 Abnormal LFTs R79.89 [place] [address] [facility] [id number] [address] [place] [address] 11 Apr, 2016 Obesity E66.9 ; Hypothyroidi sm, unspecified E03.9 and Hyperlipidemia, unspecified hyperlipidemia type E78.5 [place] [address] [facility] [id number] [address] [place] [address] 10 Apr, 2016 Obesity E66.9 ; Hypothyroidi sm, unspecified E03.9 and Hyperlipidemia, unspecified hyperlipidemia type E78.5 [place] [address] [place] [id number] [address] [place] [id number] 06 Apr, 2016 Visit for TB skin test Z11.1 [place] [address] [facility] [id number] [address] [place] [address] November, Obesity E66.9 [facility] [address] [place] [id number] [place] [address] Oct, Obesity E66.9 [facility] [address] [place] [id number] [place] [address] Oct, Essential hypertension I10 ; Hypothyroidism, unspecified E03.9 and Obesity E66.9 [facility] [address] [place] [id number] [place] [address] Jun, [facility] [address] [address] May, Essential hypertension I10 ; Allergic rhinitis J30.9 ; Hypothyroidism, unspecified E03.9 and Otitis media, unspecified, bilateral H66.93 [place] [address] [address] May, Unspecified hypothyroidism 2 44.9 and Screening for hypertension V81.1 [place] [address] [address] May, [facility] [address] [address] Apr, Hypothyroidism, unspecified E03.9 and Anxiety disorder, unspecified F41.9 [facility] [address] [address] Feb, Essential hypertension, humza gn 401.1 [facility] [address] [address] Feb, Unspecified hypothyroidism 2 44.9 and Screening for hypertension V81.1 [facility] [address] [place] [id number] [address] [place] [address] Feb, Essential hypertension, humza gn 401.1 ; Anxiety state, unspecified 300.00 and Rash of groin 782.1 [facility] [address] [place] [id number] [address] [place] [address] Feb, [facility] [address] [place] [id number] [place] [address] Dec, Essential hypertension, humza gn 401.1 ; Anxiety state, unspecified 300.00 and Rash of groin 782.1 [facility] [address] [id number] [address] [place] [address], [place] [address] November, [facility] [address] [id number] [address] [place] [address] Oct, [facility] [address] [id number] [address] [place] [address] Oct, [facility] [address] [id number] [address] [place] [address] Sep, [facility] [address] [id number] [address] [place] [address] Sep, [facility] [address] [id number] [address] [place] [address] Aug, [facility] [address] [id number] [address] [place] [address] Aug, [facility] [address] [id number] [address] [place] [address], [place] [address] Jul, [facility] [address] [id number] [address] [place] [address] Jul, [facility] [address] [id number] [address] [place] [address] Jun, [facility] [address] [id number] [address] [place] [address] Jun, [facility] [address] [id number] [address] [place] [address], [place] [address] Jun, [facility] [address] [id number] [address] [place] [address] Jun, [facility] [address] [id number] [address] [place] [address] Jun, [facility] [address] [id number] [address] [place] [address] [place] [address] Jun, [facility] [address] [id number] [address] [place] [address], [place] [address] Jun, [facility] [address] [id number] [address] [place] [address], [place] [address] Jun, [facility] [address] [id number] [address] [place] [address], [place] [address] May, [facility] [address] [id number] [address] [place] [address], [place] [address] May, [facility] [address] [id number] [address] [place] [address], [place] [address] Feb, [facility] [address] [id number] [address] [place] [address], [place] [address] Feb, [facility] [address] [id number] [address] [place] [address], [place] [address] Feb, [facility] [address] [id number] [address] [place] [address], [place] [address] Feb, [facility] [address] [id number] [address] [place] [address], [place] [address] Feb, [facility] [address] [id number] [address] [place] [address], [place] [address] Feb, [facility] [address] [id number] [address] [place] [address], [place] [address] Feb, [facility] [address] [id number] [address] [place] [address], [place] [address] Feb, [facility] [address] [id number] [address] [place] [address], [place] [address] Feb, [facility] [address] [id number] [address] [place] [address], [place] [address] Feb, [facility] [address] [id number] [address] [place] [address], [place] [address] Feb, [facility] [address] [id number] [address] [place] [address], [place] [address] Feb, [facility] [address] [id number] [address] [place] [address], [place] [address] Jan, [facility] [address] [id number] [address] [place] [address], [place] [address] Jan, [facility] [address] [id number] [address] [place] [address], [place] [address] Jan, [facility] [address] [id number] [address] [place] [address], [place] [address] Jan, [facility] [address] [id number] [address] [place] [address], [place] [address] Dec, [facility] [address] [id number] [address] [place] [address], [place] [address] Dec, [facility] [address] [id number] [address] [place] [address], [place] [address] Oct, [facility] [address] [id number] [address] [place] [address], [place] [address] Oct, [facility] [address] [id number] [address] [place] [address], [place] [address] Oct, [facility] [address] [id number] [address] [place] [address], [place] [address] Oct, [facility] [address] [id number] [address] [place] [address], [place] [address] Oct, [facility] [address] [id number] [address] [place] [address], [place] [address] Oct, [facility] [address] [id number] [address] [place] [address], [place] [address] Oct, [facility] [address] [id number] [address] [place] [address], [place] [address] Aug, [facility] [address] [id number] [address] [place] [address], [place] [address] Aug, [facility] [address] [id number] [address] [place] [address] Jul, [facility] [address] [id number] [address] [place] [address] Jul, [facility] [address] [id number] [address] [place] [address] Jul, [facility] [address] [id number] [address] [place] [address] Jul, [facility] [address] [id number] [address] [place] [address] Jun, [facility] [address] [id number] [address] [place] [address] Jun, [facility] [address] [id number] [address] [place] [address] May, [facility] [address] [id number] [address] [place] [address] May, [facility] [address] [id number] [address] [place] [address] May, [facility] [address] [id number] [address] [place] [address] Oct, [facility] [address] [id number] [address] [place] [address] Oct, IMMUNIZATIONS No Known Immunizations SOCIAL HISTORY Never Assessed REASON FOR VISIT [facility] PLAN OF CARE VITAL SIGNS MEDICATIONS Unknown [...]
--- OUTSIDE RECORDS SUMMARY | 2019-10-01 05:00 | XMS REPORT ---
Author Author Mike Gordon Doctor Organization [facility] Address Unknown Phone Unavailable Care Team Providers Care Design Agent Name Role Phone Migration, Doctor Unavailable Unavailable PROBLEMS Type Condition ICD9-CM Code DGN32-LJ Code Onset Dates Condition S tatus SNOMED Code Problem Hypothyroidism, unspecified E03.9 Ac tive 67816256 Problem Obesity E66.9 Active 413857183 Problem Essential hypertension I10 Active 85245587 Problem Prediabetes R73.03 Active 86561918 2 Problem Anxiety disorder, unspecified F41.9 Active 803715506 Problem Carpal tunnel syndrome of right wrist G56.01 Active 519559318060356 Problem Allergic rhinitis J30.9 Active 61 707792 Problem Hyperlipidemia, unspecified hyperlipidemia type E7 8.5 Active 46667716 Problem Chronic hepatitis C without hepatic coma B18.2 Active 828920339 Problem Reactive depression F32.9 Active 77701162 ALLERGIES No Information ENCOUNTERS Encounter Location Date Diagnosis [facility] [address] [facility] [id number] [address] [place] [phone] Aug, BMI 45.0-49.9, adult Z68.42 ; Chest congestion R09.89 ; Acute URI J06.9 and Morbid obesity E66.01 [facility] [address] [place] [id number] [address] [place] [phone] Jul, Cough due to bronchospasm J9 8.01 ; Shortness of breath R06.02 ; Obesity E66.9 and Acute bronchitis, viral J20.8 [facility] [address] [facility] [id number] [address] [place] [id number] Jul, [facility] [address] [facility] [id number] [address] [place] [phone] Apr, [facility] [address] [facility] [id number] [address] [place] [phone] 21 Aug, 2018 Elevated glucose R73.09 ; Ca rpal tunnel syndrome of right wrist G56.01 ; Prediabetes R73.03 and BMI 40.0-44.9, adult Z68.41 [facility] [address] [address] Oct, Essential hypertension I10 ; Hypothyroidism, unspecified E03.9 and Dysfunction of left eustachian tube H69.82 [facility] [address] [address] Sep, Chronic hepatitis C without hepatic coma B18.2 and Hypothyroidism, unspecified E03.9 [place] [address] [address] Sep, Hypothyroidism, unspecified E03.9 [place] [address] [address] May, Chronic hepatitis C without hepatic coma B18.2 [place] [address] [address] May, [facility] [address] [place] [id number] [place] [address] Apr, Hypothyroidism, unspecified E03.9 and Chronic hepatitis C without hepatic coma B18.2 [place] [address] [address] Apr, Chronic hepatitis C without hepatic coma B18.2 [place] [address] [address] Mar, Reactive depression F32.9 an d Hypothyroidism, unspecified E03.9 [place] [address] [place] [id number] [place] [phone] Feb, Reactive depression F32.9 an d Anxiety disorder, unspecified F41.9 [place] [address] [place] [id number] [address] [place] [phone] Feb, Chronic hepatitis C without hepatic coma B18.2 [facility] [address] [facility] [id number] [address] [place] [phone] Jan, Chronic hepatitis C without hepatic coma B18.2 [facility] [address] [facility] [id number] [address] [place] [phone] November, Encounter for immunization Z 23 and Chronic hepatitis C without hepatic coma B18.2 [facility] [address] [facility] [id number] [address] [place] [phone] November, [facility] [address] [facility] [id number] [address] [place] [phone] Oct, Chronic hepatitis C without hepatic coma B18.2 [facility] [address] [facility] [id number] [address] [place] [phone] Sep, [facility] [address] [facility] [id number] [address] [place] [phone] Aug, Gastroenteritis K52.9 [facility] [address] [facility] [id number] [address] [place] [phone] Aug, [facility] [address] [facility] [id number] [address] [place] [phone] Aug, [facility] [address] [facility] [id number] [address] [place] [phone] Aug, [facility] [address] [facility] [id number] [address] [place] [phone] Aug, [facility] [address] [facility] [id number] [address] [place] [phone] Jul, Encounter for immunization Z 23 ; Sinus tachycardia R00.0 and Chronic hepatitis C without hepatic coma B18.2 [facility] [address] [facility] [id number] [address] [place] [phone] Jun, Chronic hepatitis C without hepatic coma B18.2 [facility] [address] [facility] [id number] [address] [place] [phone] Jun, Chronic hepatitis C without hepatic coma B18.2 [facility] [address] [facility] [id number] [address] [place] [phone] May, Anxiety disorder, unspecifie d F41.9 [facility] [address] [facility] [id number] [address] [place] [phone] May, Bronchitis J40 and Eustachia n tube dysfunction, bilateral H69.83 [facility] [address] [facility] [id number] [address] [place] [id number] 15 May, 2016 Chronic hepatitis C without hepatic coma B18.2 [facility] [address] [facility] [id number] [address] [place] [phone] May, Chronic hepatitis C without hepatic coma B18.2 [facility] [address] [facility] [id number] [address] [place] [phone] May, [place] [address] [facility] [id number] [address] [place] [phone] Apr, Abnormal LFTs R79.89 [place] [address] [facility] [id number] [address] [place] [phone] 14 Apr, 2016 Abnormal LFTs R79.89 [place] [address] [facility] [id number] [address] [place] [phone] 11 Apr, 2016 Obesity E66.9 ; Hypothyroidi sm, unspecified E03.9 and Hyperlipidemia, unspecified hyperlipidemia type E78.5 [place] [address] [facility] [id number] [address] [place] [phone] 10 Apr, 2016 Obesity E66.9 ; Hypothyroidi sm, unspecified E03.9 and Hyperlipidemia, unspecified hyperlipidemia type E78.5 [place] [address] [place] [id number] [address] [place] [phone] 06 Apr, 2016 Visit for TB skin test Z11.1 [place] [address] [facility] [id number] [address] [place] [phone] November, Obesity E66.9 [facility] [address] [place] [id number] [place] [phone] Oct, Obesity E66.9 [facility] [address] [place] [id number] [place] [address] Oct, Essential hypertension I10 ; Hypothyroidism, unspecified E03.9 and Obesity E66.9 [facility] [address] [place] [id number] [place] [address] Jun, [facility] [address] [address] May, Essential hypertension I10 ; Allergic rhinitis J30.9 ; Hypothyroidism, unspecified E03.9 and Otitis media, unspecified, bilateral H66.93 [place] [address] [address] May, Unspecified hypothyroidism 2 44.9 and Screening for hypertension V81.1 [place] [address] [address] May, [facility] [address] [address] Apr, Hypothyroidism, unspecified E03.9 and Anxiety disorder, unspecified F41.9 [facility] [address] [address] Feb, Essential hypertension, humza gn 401.1 [facility] [address] [id number] Feb, Unspecified hypothyroidism 2 44.9 and Screening for hypertension V81.1 [facility] [address] [place] [id number] [address] [place] [phone] Feb, Essential hypertension, humza gn 401.1 ; Anxiety state, unspecified 300.00 and Rash of groin 782.1 [facility] [address] [place] [id number] [address] [place] [phone] Feb, [facility] [address] [place] [id number] [place] [address] Dec, Essential hypertension, humza gn 401.1 ; Anxiety state, unspecified 300.00 and Rash of groin 782.1 [facility] [address] [id number] [address] [place] [address], [place] [address] November, [facility] [address] [id number] [address] [place] [phone] Oct, [facility] [address] [id number] [address] [place] [phone] Oct, [facility] [address] [id number] [address] [place] [phone] Sep, [facility] [address] [id number] [address] [place] [phone] Sep, [facility] [address] [id number] [address] [place] [phone] Aug, [facility] [address] [id number] [address] [place] [phone] Aug, [facility] [address] [id number] [address] [place] [address], [place] [address] Jul, [facility] [address] [id number] [address] [place] [phone] Jul, [facility] [address] [id number] [address] [place] [phone] Jun, [facility] [address] [id number] [address] [place] [phone] Jun, [facility] [address] [id number] [address] [place] [address], [place] [address] Jun, [facility] [address] [id number] [address] [place] [phone] Jun, [facility] [address] [id number] [address] [place] [phone] Jun, [facility] [address] [id number] [address] [place] [address] [place] [address] Jun, [facility] [address] [id number] [address] [place] [address], [place] [address] Jun, [facility] [address] [id number] [address] [place] [address], [place] [address] Jun, [facility] [address] [id number] [address] [place] [address], [place] [address] May, [facility] [address] [id number] [address] [place] [address], [place] [address] May, [facility] [address] [id number] [address] [place] [address], [place] [address] Feb, [facility] [address] [id number] [address] [place] [address], [place] [address] Feb, [facility] [address] [id number] [address] [place] [address], [place] [address] Feb, [facility] [address] [id number] [address] [place] [address], [place] [address] Feb, [facility] [address] [id number] [address] [place] [address], [place] [address] Feb, [facility] [address] [id number] [address] [place] [address], [place] [address] Feb, [facility] [address] [id number] [address] [place] [address], [place] [address] Feb, [facility] [address] [id number] [address] [place] [address], [place] [address] Feb, [facility] [address] [id number] [address] [place] [address], [place] [address] Feb, [facility] [address] [id number] [address] [place] [address], [place] [address] Feb, [facility] [address] [id number] [address] [place] [address], [place] [address] Feb, [facility] [address] [id number] [address] [place] [address], [place] [address] Feb, [facility] [address] [id number] [address] [place] [address], [place] [address] Jan, [facility] [address] [id number] [address] [place] [address], [place] [address] Jan, [facility] [address] [id number] [address] [place] [address], [place] [address] Jan, [facility] [address] [id number] [address] [place] [address], [place] [address] Jan, [facility] [address] [id number] [address] [place] [address], [place] [address] Dec, [facility] [address] [id number] [address] [place] [address], [place] [address] Dec, [facility] [address] [id number] [address] [place] [address], [place] [address] Oct, [facility] [address] [id number] [address] [place] [address], [place] [address] Oct, [facility] [address] [id number] [address] [place] [address], [place] [address] Oct, [facility] [address] [id number] [address] [place] [address], [place] [address] Oct, [facility] [address] [id number] [address] [place] [address], [place] [address] Oct, [facility] [address] [id number] [address] [place] [address], [place] [address] Oct, [facility] [address] [id number] [address] [place] [address], [place] [address] Oct, [facility] [address] [id number] [address] [place] [address], [place] [address] Aug, [facility] [address] [id number] [address] [place] [address], [place] [address] Aug, [facility] [address] [id number] [address] [place] [phone] Jul, [facility] [address] [id number] [address] [place] [phone] Jul, [facility] [address] [id number] [address] [place] [phone] Jul, [facility] [address] [id number] [address] [place] [phone] Jul, [facility] [address] [id number] [address] [place] [phone] Jun, [facility] [address] [id number] [address] [place] [phone] Jun, [facility] [address] [id number] [address] [place] [phone] May, [facility] [address] [id number] [address] [place] [phone] May, [facility] [address] [id number] [address] [place] [phone] May, [facility] [address] [id number] [address] [place] [phone] Oct, [facility] [address] [id number] [address] [place] [phone] Oct, IMMUNIZATIONS No Known Immunizations SOCIAL HISTORY Never Assessed REASON FOR VISIT [facility] PLAN OF CARE VITAL SIGNS MEDICATIONS Unknown [...]
--- OUTSIDE RECORDS SUMMARY | 2019-10-01 05:00 | XMS REPORT ---
Author Author Mike Valentino Organization [facility] Address [address] [place] [address] Care Team Providers Care Cinema Operator Name Role Phone RHETT Valentino Unavailable PROBLEMS Type Condition ICD9-CM Code UJA02-UC Code Onset Dates Condition S tatus SNOMED Code Problem Hypothyroidism, unspecified E03.9 Ac tive 85161808 Problem Obesity E66.9 Active 424808724 Problem Essential hypertension I10 Active 46692610 Problem Prediabetes R73.03 Active 46204911 2 Problem Anxiety disorder, unspecified F41.9 Active 462187973 Problem Carpal tunnel syndrome of right wrist G56.01 Active [id number] Problem Allergic rhinitis J30.9 Active 61 254485 Problem Hyperlipidemia, unspecified hyperlipidemia type E7 8.5 Active 79948323 Problem Chronic hepatitis C without hepatic coma B18.2 Active 379933183 Problem Reactive depression F32.9 Active 75016957 ALLERGIES No Information ENCOUNTERS Encounter Location Date Diagnosis [facility] [address] [facility] [id number] [address] [place] [id number] Jan, [facility] [address] [facility] [id number] [address] [place] [address] Aug, BMI 45.0-49.9, adult Z68.42 ; Chest congestion R09.89 ; Acute URI J06.9 and Morbid obesity E66.01 [facility] [address] [facility] [id number] [address] [place] [address] Jul, Cough due to bronchospasm J9 8.01 ; Shortness of breath R06.02 ; Obesity E66.9 and Acute bronchitis, viral J20.8 [facility] [address] [facility] [id number] [address] [place] [phone] Jul, [facility] [address] [place] [id number] [address] [place] [phone] Apr, [place] [address] [place] [id number] [place] [address] Feb, Elevated glucose R73.09 ; Ca rpal tunnel syndrome of right wrist G56.01 ; Prediabetes R73.03 and BMI 40.0-44.9, adult Z68.41 [place] [address] [address] Oct, Essential hypertension I10 ; Hypothyroidism, unspecified E03.9 and Dysfunction of left eustachian tube H69.82 [place] [address] [address] Sep, Chronic hepatitis C without hepatic coma B18.2 and Hypothyroidism, unspecified E03.9 [place] [address] [address] Sep, Hypothyroidism, unspecified E03.9 [place] [address] [place] [id number] [place] [address] May, Chronic hepatitis C without hepatic coma B18.2 [place] [address] [address] May, [place] [address] [place] [id number] [address] [place] [address] Apr, Hypothyroidism, unspecified E03.9 and Chronic hepatitis C without hepatic coma B18.2 [place] [address] [place] [id number] [place] [address] Apr, Chronic hepatitis C without hepatic coma B18.2 [place] [address] [place] [id number] [place] [phone] Mar, Reactive depression F32.9 an d Hypothyroidism, unspecified E03.9 [place] [address] [place] [id number] [place] [address] Feb, Reactive depression F32.9 an d Anxiety disorder, unspecified F41.9 [facility] [address] [facility] [id number] [address] [place] [phone] Feb, Chronic hepatitis C without hepatic coma B18.2 [facility] [address] [facility] [id number] [address] [place] [phone] Jan, Chronic hepatitis C without hepatic coma B18.2 [facility] [address] [facility] [id number] [address] [place] [phone] November, Encounter for immunization Z 23 and Chronic hepatitis C without hepatic coma B18.2 [facility] [address] [facility] [id number] [address] [place] [phone] November, [facility] [address] [facility] [id number] [address] [place] [phone] Oct, Chronic hepatitis C without hepatic coma B18.2 [facility] [address] [facility] [id number] [address] [place] [phone] Sep, [facility] [address] [facility] [id number] [address] [place] [phone] Aug, Gastroenteritis K52.9 [facility] [address] [facility] [id number] [address] [place] [phone] Aug, [facility] [address] [facility] [id number] [address] [place] [phone] Aug, [facility] [address] [facility] [id number] [address] [place] [phone] Aug, [facility] [address] [facility] [id number] [address] [place] [phone] Aug, [facility] [address] [facility] [id number] [address] [place] [phone] Jul, Encounter for immunization Z 23 ; Sinus tachycardia R00.0 and Chronic hepatitis C without hepatic coma B18.2 [facility] [address] [facility] [id number] [address] [place] [phone] Jun, Chronic hepatitis C without hepatic coma B18.2 [facility] [address] [facility] [id number] [address] [place] [phone] Jun, Chronic hepatitis C without hepatic coma B18.2 [facility] [address] [facility] [id number] [address] [place] [phone] May, Anxiety disorder, unspecifie d F41.9 [facility] [address] [place] [id number] [address] [place] [phone] May, Bronchitis J40 and Eustachia n tube dysfunction, bilateral H69.83 [place] [address] [place] [id number] [address] [place] [phone] May, Chronic hepatitis C without hepatic coma B18.2 [place] [address] [place] [id number] [address] [place] [phone] May, Chronic hepatitis C without hepatic coma B18.2 [place] [address] [place] [id number] [address] [place] [phone] May, [place] [address] [place] [id number] [address] [place] [address] Apr, Abnormal LFTs R79.89 [place] [address] [place] [id number] [address] [place] [phone] 14 Apr, 2016 Abnormal LFTs R79.89 [place] [address] [place] [id number] [address] [place] [phone] 11 Apr, 2016 Obesity E66.9 ; Hypothyroidi sm, unspecified E03.9 and Hyperlipidemia, unspecified hyperlipidemia type E78.5 [place] [address] [place] [id number] [address] [place] [phone] 10 Apr, 2016 Obesity E66.9 ; Hypothyroidi sm, unspecified E03.9 and Hyperlipidemia, unspecified hyperlipidemia type E78.5 [place] [address] [place] [id number] [address] [place] [phone] Apr, Visit for TB skin test Z11.1 [facility] [address] [id number] November, Obesity E66.9 [place] [address] [address] Oct, Obesity E66.9 [place] [address] [address] Oct, Essential hypertension I10 ; Hypothyroidism, unspecified E03.9 and Obesity E66.9 [place] [address] [address] Jun, [place] [address] [address] May, Essential hypertension I10 ; Allergic rhinitis J30.9 ; Hypothyroidism, unspecified E03.9 and Otitis media, unspecified, bilateral H66.93 [place] [address] [address] May, Unspecified hypothyroidism 2 44.9 and Screening for hypertension V81.1 [place] [address] [address] May, [place] [address] [address] Apr, Hypothyroidism, unspecified E03.9 and Anxiety disorder, unspecified F41.9 [place] [address] [address] Feb, Essential hypertension, humza gn 401.1 [place] [address] [address] Feb, Unspecified hypothyroidism 2 44.9 and Screening for hypertension V81.1 [place] [address] [address] Feb, Essential hypertension, humza gn 401.1 ; Anxiety state, unspecified 300.00 and Rash of groin 782.1 [facility] [address] [id number] [address] [place] [phone] Feb, [facility] [address] [id number] [address] [place] [address] Dec, Essential hypertension, humza gn 401.1 ; Anxiety state, unspecified 300.00 and Rash of groin 782.1 [facility] [address] [id number] [address] [place] [address] November, [facility] [address] [id number] [address] [place] [phone] Oct, [facility] [address] [id number] [address] [place] [phone] Oct, [facility] [address] [id number] [address] [place] [phone] Sep, [facility] [address] [id number] [address] [place] [phone] Sep, [facility] [address] [id number] [address] [place] [phone] Aug, [facility] [address] [id number] [address] [place] [phone] Aug, [facility] [address] [id number] [address] [place] [phone] Jul, [facility] [address] [id number] [address] [place] [phone] Jul, [facility] [address] [id number] [address] [place] [phone] Jun, [facility] [address] [id number] [address] [place] [phone] Jun, [facility] [address] [id number] [address] [place] [phone] Jun, [facility] [address] [id number] [address] [place] [address], [place] [address] Jun, [facility] [address] [id number] [address] [place] [address], [place] [address] Jun, [facility] [address] [id number] [address] [place] [address], [place] [address] Jun, [facility] [address] [id number] [address] [place] [address], [place] [address] Jun, [facility] [address] [id number] [address] [place] [address], [place] [address] Jun, [facility] [address] [id number] [address] [place] [address], [place] [address] May, [facility] [address] [id number] [address] [place] [address], [place] [address] May, [facility] [address] [id number] [address] [place] [address], [place] [address] Feb, [facility] [address] [id number] [address] [place] [address], [place] [address] Feb, [facility] [address] [id number] [address] [place] [address], [place] [address] Feb, [facility] [address] [id number] [address] [place] [address], [place] [address] Feb, [facility] [address] [id number] [address] [place] [address], [place] [address] Feb, [facility] [address] [id number] [address] [place] [address], [place] [address] Feb, [facility] [address] [id number] [address] [place] [address], [place] [address] Feb, [facility] [address] [id number] [address] [place] [address], [place] [address] Feb, [facility] [address] [id number] [address] [place] [address], [place] [address] Feb, [facility] [address] [id number] [address] [place] [address], [place] [address] Feb, [facility] [address] [id number] [address] [place] [address], [place] [address] Feb, [facility] [address] [id number] [address] [place] [address], [place] [address] Feb, [facility] [address] [id number] [address] [place] [address], [place] [address] Jan, [facility] [address] [id number] [address] [place] [address], [place] [address] Jan, [facility] [address] [id number] [address] [place] [address], [place] [address] Jan, [facility] [address] [id number] [address] [place] [address], [place] [address] Jan, [facility] [address] [id number] [address] [place] [address], [place] [address] Dec, [facility] [address] [id number] [address] [place] [address], [place] [address] Dec, [facility] [address] [id number] [address] [place] [address], [place] [address] Oct, [facility] [address] [id number] [address] [place] [address], [place] [address] Oct, [facility] [address] [id number] [address] [place] [address], [place] [address] Oct, [facility] [address] [id number] [address] [place] [address], [place] [address] Oct, [facility] [address] [id number] [address] [place] [address], [place] [address] Oct, [facility] [address] [id number] [address] [place] [address], [place] [address] Oct, [facility] [address] [id number] [address] [place] [address], [place] [address] Oct, [facility] [address] [id number] [address] [place] [address] Aug, [facility] [address] [id number] [address] [place] [address] Aug, [facility] [address] [id number] [address] [place] [address] Jul, [facility] [address] [id number] [address] [place] [address] Jul, [facility] [address] [id number] [address] [place] [address] Jul, [facility] [address] [id number] [address] [place] [address] Jul, [facility] [address] [id number] [address] [place] [address] Jun, [facility] [address] [id number] [address] [place] [address] Jun, [facility] [address] [id number] [address] [place] [address] May, [facility] [address] [id number] [address] [place] [phone] May, [facility] [address] [id number] [address] [place] [address] May, [facility] [address] [id number] [address] [place] [address] Oct, [facility] [address] [id number] [address] [place] [address] Oct, IMMUNIZATIONS No Known Immunizations SOCIAL HISTORY [...]
--- OUTSIDE RECORDS SUMMARY | 2019-10-01 05:01 | XMS REPORT ---
Author Author Mike HWANG Organization [facility] Address [address] [place] [address] Care Team Providers Care Generator Technician Name Role Phone ALEN HWANG Unavailable PROBLEMS Type Condition ICD9-CM Code MQC13-KZ Code Onset Dates Condition S tatus SNOMED Code Problem Hypothyroidism, unspecified E03.9 Ac tive 13434137 Problem Anxiety disorder, unspecified F41.9 Active 917641699 Problem Reactive depression F32.9 Active 46906145 Problem Chronic hepatitis C without hepatic coma B18.2 Active 429434828 Problem Essential hypertension I10 Active 95776855 Problem Obesity E66.9 Active 771765162 Problem Hyperlipidemia, unspecified hyperlipidemia type E7 8.5 Active 74785202 Problem Allergic rhinitis J30.9 Active 61 934571 ALLERGIES Unknown Allergies SOCIAL HISTORY No smoking Hx information available PLAN OF CARE VITAL SIGNS MEDICATIONS Unknown Medications RESULTS No Results PROCEDURES No Known procedures IMMUNIZATIONS No Known Immunizations
--- OUTSIDE RECORDS SUMMARY | 2019-10-01 05:01 | XMS REPORT ---
Author Author Mike PULIDO Organization [facility] Address [address] [place] [address] Care Team Providers Care Senior Analyst Programmer Name Role Phone CYRUS PULIDO Unavailable PROBLEMS Type Condition ICD9-CM Code CLW52-ZA Code Onset Dates Condition S tatus SNOMED Code Problem Hypothyroidism, unspecified E03.9 Ac tive 86525641 Problem Essential hypertension I10 Active 87945788 Problem Obesity E66.9 Active 895375539 Problem Anxiety disorder, unspecified F41.9 Active 716058694 Problem Carpal tunnel syndrome of right wrist G56.01 Active [id number] Problem Prediabetes R73.03 Active 09940931 2 Problem Hyperlipidemia, unspecified hyperlipidemia type E7 8.5 Active 96846196 Problem Allergic rhinitis J30.9 Active 61 664828 Problem Reactive depression F32.9 Active 13833141 Problem Chronic hepatitis C without hepatic coma B18.2 Active [id number] ALLERGIES No Known Allergies ENCOUNTERS Encounter Location Date Diagnosis [place] [address] [place] [id number] [place] [id number] Mar, [place] [address] [place] [id number] [place] [id number] Feb, Elevated glucose R73.09 ; Ca rpal tunnel syndrome of right wrist G56.01 ; Prediabetes R73.03 and BMI 40.0-44.9, adult Z68.41 [place] [address] [facility] [id number] [address] [place] [id number] Oct, Essential hypertension I10 ; Hypothyroidism, unspecified E03.9 and Dysfunction of left eustachian tube H69.82 [facility] [address] [facility] [id number] [address] [place] [phone] Sep, Chronic hepatitis C without hepatic coma B18.2 and Hypothyroidism, unspecified E03.9 [facility] [address] [facility] [id number] [address] [place] [id number] Sep, Hypothyroidism, unspecified E03.9 [facility] [address] [facility] [id number] [address] [place] [id number] May, Chronic hepatitis C without hepatic coma B18.2 [facility] [address] [facility] [id number] [address] [place] [phone] May, [facility] [address] [place] [id number] [address] [place] [id number] Apr, Hypothyroidism, unspecified E03.9 and Chronic hepatitis C without hepatic coma B18.2 [facility] [address] [facility] [id number] [address] [place] [id number] Apr, Chronic hepatitis C without hepatic coma B18.2 [facility] [address] [place] [id number] [address] [place] [id number] Mar, Reactive depression F32.9 an d Hypothyroidism, unspecified E03.9 [facility] [address] [facility] [id number] [address] [place] [id number] Feb, Reactive depression F32.9 an d Anxiety disorder, unspecified F41.9 [facility] [address] [facility] [id number] [address] [place] [phone] Feb, Chronic hepatitis C without hepatic coma B18.2 [facility] [address] [facility] [id number] [address] [place] [id number] Jan, Chronic hepatitis C without hepatic coma B18.2 [facility] [address] [facility] [id number] [address] [place] [phone] November, Encounter for immunization Z 23 and Chronic hepatitis C without hepatic coma B18.2 [facility] [address] [facility] [id number] [address] [place] [phone] November, [facility] [address] [place] [id number] [address] [place] [id number] Oct, Chronic hepatitis C without hepatic coma B18.2 [facility] [address] [place] [id number] [place] [phone] Sep, [facility] [address] [place] [id number] [place] [phone] Aug, Gastroenteritis K52.9 [facility] [address] [id number] Aug, [facility] [address] [phone] Aug, [facility] [address] [id number] Aug, [facility] [address] [id number] Aug, [facility] [address] [id number] Jul, Encounter for immunization Z 23 ; Sinus tachycardia R00.0 and Chronic hepatitis C without hepatic coma B18.2 [facility] [address] [id number] Jun, Chronic hepatitis C without hepatic coma B18.2 [facility] [address] [id number] Jun, Chronic hepatitis C without hepatic coma B18.2 [facility] [address] [address] May, Anxiety disorder, unspecifie d F41.9 [facility] [address] [address] May, Bronchitis J40 and Eustachia n tube dysfunction, bilateral H69.83 [facility] [address] [address] May, Chronic hepatitis C without hepatic coma B18.2 [facility] [address] [place] [id number] [address] [place] [id number] 07 May, 2016 Chronic hepatitis C without hepatic coma B18.2 [facility] [address] [facility] [id number] [address] [place] [phone] May, [facility] [address] [facility] [id number] [address] [place] [phone] Apr, Abnormal LFTs R79.89 [facility] [address] [place] [id number] [place] [id number] 14 Apr, 2016 Abnormal LFTs R79.89 [facility] [address] [place] [id number] [place] [id number] 11 Apr, 2016 Obesity E66.9 ; Hypothyroidi sm, unspecified E03.9 and Hyperlipidemia, unspecified hyperlipidemia type E78.5 [place] [address] [place] [id number] [address] [place] [id number] Apr, Obesity E66.9 ; Hypothyroidi sm, unspecified E03.9 and Hyperlipidemia, unspecified hyperlipidemia type E78.5 [place] [address] [place] [id number] [place] [phone] Apr, Visit for TB skin test Z11.1 [facility] [address] [place] [id number] [place] [id number] November, Obesity E66.9 [facility] [address] [place] [id number] [place] [phone] Oct, Obesity E66.9 [facility] [address] [facility] [id number] [address] [place] [id number] Oct, Essential hypertension I10 ; Hypothyroidism, unspecified E03.9 and Obesity E66.9 [facility] [address] [facility] [id number] [address] [place] [phone] Jun, [facility] [address] [facility] [id number] [address] [place] [phone] May, Essential hypertension I10 ; Allergic rhinitis J30.9 ; Hypothyroidism, unspecified E03.9 and Otitis media, unspecified, bilateral H66.93 [place] [address] [address] May, Unspecified hypothyroidism 2 44.9 and Screening for hypertension V81.1 [place] [address] [address] May, [place] [address] [address] Apr, Hypothyroidism, unspecified E03.9 and Anxiety disorder, unspecified F41.[address] [address] Feb, Essential hypertension, humza gn 401.[address] [address] Feb, Unspecified hypothyroidism 2 44.9 and Screening for hypertension V81.1 [place] [address] [address] Feb, Essential hypertension, humza gn 401.1 ; Anxiety state, unspecified 300.00 and Rash of groin 782.1 [place] [address] [address] Feb, [place] [address] [address] Dec, Essential hypertension, humza gn 401.1 ; Anxiety state, unspecified 300.00 and Rash of groin 782.1 [place] [address] [id number] November, [place] [address] [id number] Oct, [place] [address] [id number] Oct, [place] [address] [place] [address] Sep, [facility] [address] [id number] [address] [place] [address], [place] [address] Sep, [facility] [address] [id number] [address] [place] [address], [place] [address] Aug, [facility] [address] [id number] [address] [place] [address], [place] [address] Aug, [facility] [address] [id number] [address] [place] [address], [place] [address] Jul, [facility] [address] [id number] [address] [place] [address], [place] [address] Jul, [facility] [address] [id number] [address] [place] [address], [place] [address] Jun, [facility] [address] [id number] [address] [place] [address], [place] [address] Jun, [facility] [address] [id number] [address] [place] [address], [place] [address] Jun, [facility] [address] [id number] [address] [place] [address], [place] [address] Jun, [facility] [address] [id number] [address] [place] [address], [place] [address] Jun, [facility] [address] [id number] [address] [place] [address], [place] [address] Jun, [facility] [address] [id number] [address] [place] [address], [place] [address] Jun, [facility] [address] [id number] [address] [place] [address], [place] [address] Jun, [facility] [address] [id number] [address] [place] [address], [place] [address] May, [facility] [address] [id number] [address] [place] [address], [place] [address] May, [facility] [address] [id number] [address] [place] [address], [place] [address] Feb, [facility] [place] [facility] [address] [id number] [address] [place] [address], [place] [address] Feb, [facility] [place] [facility] [address] [id number] [address] [place] [address], [place] [address] Feb, [facility] [place] [facility] [address] [id number] [address] [place] [address], [place] [address] Feb, [facility] [address] [id number] [address] [place] [address], [place] [address] Feb, [facility] [place] [facility] [address] [id number] [address] [place] [address], [place] [address] Feb, [facility] [address] [id number] [address] [place] [address], [place] [address] Feb, [facility] [address] [id number] [address] [place] [address], [place] [address] Feb, [facility] [address] [id number] [address] [place] [address], [place] [address] Feb, [facility] [place] [facility] [address] [id number] [address] [place] [address], [place] [address] Feb, [facility] [place] [facility] [address] [id number] [address] [place] [address], [place] [address] Feb, [facility] [place] [facility] [address] [id number] [address] [place] [address], [place] [address] Feb, [facility] [place] [facility] [address] [id number] [address] [place] [address], [place] [address] Jan, [facility] [place] [facility] [address] [id number] [address] [place] [address], [place] [address] Jan, [facility] [place] [facility] [address] [id number] [address] [place] [address], [place] [address] Jan, [facility] [place] [facility] [address] [id number] [address] [place] [address], [place] [address] Jan, [facility] [address] [id number] [address] [place] [address], [place] [address] Dec, [facility] [address] [id number] [address] [place] [address], [place] [address] Dec, [facility] [address] [id number] [address] [place] [address], [place] [address] Oct, [facility] [address] [id number] [address] [place] [address], [place] [address] Oct, [facility] [address] [id number] [address] [place] [address], [place] [address] Oct, [facility] [address] [id number] [address] [place] [address], [place] [address] Oct, [facility] [address] [id number] [address] [place] [address], [place] [address] Oct, [facility] [address] [id number] [address] [place] [address], [place] [address] Oct, [facility] [address] [id number] [address] [place] [address], [place] [address] Oct, [facility] [address] [id number] [address] [place] [address], [place] [address] Aug, [facility] [address] [id number] [address] [place] [address], [place] [address] Aug, [facility] [address] [id number] [address] [place] [address], [place] [address] Jul, [facility] [address] [id number] [address] [place] [address], [place] [address] Jul, [facility] [address] [id number] [address] [place] [address], [place] [address] Jul, [facility] [address] [id number] [address] [place] [address], [place] [address] Jul, [facility] [address] [id number] [address] [place] [id number] Jun, [facility] [address] [id number] [address] [place] [phone] Jun, [facility] [address] [id number] [address] [place] [phone] May, [facility] [address] [id number] [address] [place] [phone] May, [facility] [address] [id number] [address] [place] [phone] May, [facility] [address] [id number] [address] [place] [phone] Oct, [facility] [address] [id number] [address] [place] [phone] Oct, IMMUNIZATIONS No Known Immunizations SOCIAL HISTORY Never Assessed REASON FOR VISIT Pain (acute) hand Pt in for hand pain, states the pain is getting worse Ellen campos MA PLAN OF CARE Activity Details Follow Up 1 Year Reason: VITAL SIGNS Height 70 in 2018-03-14 Weight 311.5 lbs 2018-03-14 Temperature 97.8 degrees Fahrenheit 2018-03-14 Heart Rate 104 bpm 2018-03-14 Respiratory Rate 22 2018-03-14 BMI 44.69 kg/m2 2018-03-14 Blood pressure systolic 122 mmHg 2018-03-14 Blood pressure diastolic 74 mmHg 2018-03-14 MEDICATIONS Medication Instructions Dosage Frequency Start Date End Date Duration S you Cesar-D 12 Hour 5-120 MG Orally every 12 hrs 1 tablet as needed 12h May, Not-Taking Lisinopril 10 MG TAKE ONE TABLET BY MOUTH ONCE DAILY 30 Active SudoGest 60 mg Orally every 6 hrs 1 tablet as needed 6h Oct, 8 10 days Active Aspirin 81 mg take 1 tablet (81 mg) by oral route once daily Oct, Active Levothyroxine Sodium 100 MCG TAKE ONE TABLET BY MOUTH ONCE DAILY 30 Active Naproxen 500 mg Orally 2 times a day 1 tablet with food or milk as needed 12h Feb, Active RESULTS Name Result Date Reference Range A1C (IN HOUSE) 2018-03-14 A1C IN HOUSE 5.8 4.3 - 5.6 % Previous A1c Lot [id number] Exp date 09/2019 PROCEDURES Procedure Date Ordered Result Body Site GLYCATED HEMOGLOBIN TEST Mar 14, 2018 INSTRUCTIONS MEDICATIONS ADMINISTERED No Known Medications MEDICAL (GENERAL) HISTORY Type Description Date Medical History Hearing loss Medical History Acid reflux Medical History Inguinal hernia at -1965 Medical History Depression Medical History HTN Medical History ANXIETY Surgical History Left ear surgery Surgical History Appendectomy Surgical History Left knee ACL/MCL repair Surgical History HERNIA SURGERY
--- OUTSIDE RECORDS SUMMARY | 2019-10-01 05:01 | XMS REPORT ---
Author Author Mike PLUIDO Organization [facility] Address [address] [place] [address] Care Team Providers Care Truck Shop Supervisor Name Role Phone CYRUS PULIDO Unavailable PROBLEMS Type Condition ICD9-CM Code [id number] Code Onset Dates Condition S tatus SNOMED Code Problem Hypothyroidism, unspecified E03.9 Ac tive 14781740 Problem Anxiety disorder, unspecified F41.9 Active 959208244 Problem Reactive depression F32.9 Active 21531649 Problem Chronic hepatitis C without hepatic coma B18.2 Active 504472565 Problem Essential hypertension I10 Active 69730984 Problem Obesity E66.9 Active 891018335 Problem Hyperlipidemia, unspecified hyperlipidemia type E7 8.5 Active 79455372 Problem Allergic rhinitis J30.9 Active 61 955725 ALLERGIES No Information ENCOUNTERS Encounter Location Date Diagnosis [place] [id number] [place] [id number] [address] [place] [id number] Oct, Essential hypertension I10 ; Hypothyroidism, unspecified E03.9 and Dysfunction of left eustachian tube H69.82 [facility] [address] [place] [id number] [address] [place] [phone] Sep, Chronic hepatitis C without hepatic coma B18.2 and Hypothyroidism, unspecified E03.9 [facility] [address] [facility] [id number] [address] [place] [phone] Sep, Hypothyroidism, unspecified E03.9 [facility] [address] [place] [id number] [place] [phone] May, Chronic hepatitis C without hepatic coma B18.2 [facility] [address] [place] [id number] [address] [place] [phone] May, [facility] [address] [place] [id number] [address] [place] [phone] Apr, Hypothyroidism, unspecified E03.9 and Chronic hepatitis C without hepatic coma B18.2 [facility] [address] [facility] [id number] [address] [place] [phone] Apr, Chronic hepatitis C without hepatic coma B18.2 [facility] [address] [facility] [id number] [address] [place] [phone] Mar, Reactive depression F32.9 an d Hypothyroidism, unspecified E03.9 [facility] [address] [facility] [id number] [address] [place] [phone] Feb, Reactive depression F32.9 an d Anxiety disorder, unspecified F41.9 [facility] [address] [facility] [id number] [address] [place] [phone] Feb, Chronic hepatitis C without hepatic coma B18.2 [facility] [address] [facility] [id number] [address] [place] [phone] Jan, Chronic hepatitis C without hepatic coma B18.2 [facility] [address] [facility] [id number] [address] [place] [phone] November, Encounter for immunization Z 23 and Chronic hepatitis C without hepatic coma B18.2 [facility] [address] [facility] [id number] [address] [place] [phone] November, [facility] [address] [facility] [id number] [address] [place] [phone] Oct, Chronic hepatitis C without hepatic coma B18.2 [facility] [address] [facility] [id number] [address] [place] [phone] Sep, [facility] [address] [facility] [id number] [address] [place] [phone] Aug, Gastroenteritis K52.9 [facility] [address] [facility] [id number] [address] [place] [phone] Aug, [facility] [address] [place] [id number] [address] [place] [phone] Aug, [facility] [address] [facility] [id number] [address] [place] [phone] Aug, [facility] [address] [facility] [id number] [address] [place] [phone] Aug, [facility] [address] [facility] [id number] [address] [place] [phone] Jul, Encounter for immunization Z 23 ; Sinus tachycardia R00.0 and Chronic hepatitis C without hepatic coma B18.2 [facility] [address] [facility] [id number] [address] [place] [phone] Jun, Chronic hepatitis C without hepatic coma B18.2 [facility] [address] [facility] [id number] [address] [place] [phone] Jun, Chronic hepatitis C without hepatic coma B18.2 [facility] [address] [place] [id number] [address] [place] [phone] May, Anxiety disorder, unspecifie d F41.9 [facility] [address] [facility] [id number] [address] [place] [phone] May, Bronchitis J40 and Eustachia n tube dysfunction, bilateral H69.83 [facility] [address] [facility] [id number] [address] [place] [phone] May, Chronic hepatitis C without hepatic coma B18.2 [facility] [address] [facility] [id number] [address] [place] [phone] May, Chronic hepatitis C without hepatic coma B18.2 [facility] [address] [facility] [id number] [address] [place] [phone] May, [facility] [address] [place] [id number] [place] [phone] Apr, Abnormal LFTs R79.89 [facility] [address] [facility] [id number] [address] [place] [phone] Apr, Abnormal LFTs R79.89 [place] [address] [facility] [id number] [address] [place] [phone] Apr, Obesity E66.9 ; Hypothyroidi sm, unspecified E03.9 and Hyperlipidemia, unspecified hyperlipidemia type E78.5 [place] [address] [facility] [id number] [address] [place] [phone] 10 Apr, 2016 Obesity E66.9 ; Hypothyroidi sm, unspecified E03.9 and Hyperlipidemia, unspecified hyperlipidemia type E78.5 [place] [address] [facility] [id number] [address] [place] [phone] Apr, Visit for TB skin test Z11.1 [place] [address] [place] [id number] [place] [phone] November, Obesity E66.9 [place] [address] [place] [id number] [place] [phone] Oct, Obesity E66.9 [place] [address] [phone] Oct, Essential hypertension I10 ; Hypothyroidism, unspecified E03.9 and Obesity E66.9 [place] [address] [place] [id number] [address] [place] [phone] Jun, [place] [address] [place] [id number] [place] [phone] May, Essential hypertension I10 ; Allergic rhinitis J30.9 ; Hypothyroidism, unspecified E03.9 and Otitis media, unspecified, bilateral H66.93 [place] [address] [place] [id number] [address] [place] [phone] May, Unspecified hypothyroidism 2 44.9 and Screening for hypertension V81.1 [place] [address] [place] [id number] [address] [place] [phone] May, [place] [address] [place] [id number] [address] [place] [phone] Apr, Hypothyroidism, unspecified E03.9 and Anxiety disorder, unspecified F41.9 [facility] [address] [facility] [id number] [address] [place] [phone] Feb, Essential hypertension, humza gn 401.1 [facility] [address] [facility] [id number] [address] [place] [phone] Feb, Unspecified hypothyroidism 2 44.9 and Screening for hypertension V81.1 [facility] [address] [place] [id number] [address] [place] [phone] Feb, Essential hypertension, humza gn 401.1 ; Anxiety state, unspecified 300.00 and Rash of groin 782.1 [facility] [address] [facility] [id number] [address] [place] [phone] Feb, [facility] [address] [place] [id number] [address] [place] [phone] Dec, Essential hypertension, humza gn 401.1 ; Anxiety state, unspecified 300.00 and Rash of groin 782.1 [facility] [address] [place] [id number] [address] [place] [phone] November, [facility] [address] [facility] [id number] [address] [place] [phone] Oct, [facility] [address] [place] [id number] [address] [place] [phone] Oct, [facility] [address] [facility] [id number] [address] [place] [phone] Sep, [facility] [address] [facility] [id number] [address] [place] [phone] Sep, [facility] [address] [facility] [id number] [address] [place] [phone] Aug, [facility] [address] [facility] [id number] [address] [place] [phone] Aug, [facility] [address] [place] [id number] [address] [place] [phone] Jul, [facility] [address] [id number] [address] [place] [address], [place] [address] Jul, [facility] [address] [id number] [address] [place] [address], [place] [address] Jun, [facility] [address] [id number] [address] [place] [address], [place] [address] Jun, [facility] [address] [id number] [address] [place] [address], [place] [address] Jun, [facility] [address] [id number] [address] [place] [address], [place] [address] Jun, [facility] [address] [id number] [address] [place] [address], [place] [address] Jun, [facility] [address] [id number] [address] [place] [address], [place] [address] Jun, [facility] [address] [id number] [address] [place] [address], [place] [address] Jun, [facility] [address] [id number] [address] [place] [address], [place] [address] Jun, [facility] [address] [id number] [address] [place] [address], [place] [address] May, [facility] [address] [id number] [address] [place] [address], [place] [address] May, [facility] [address] [id number] [address] [place] [address], [place] [address] Feb, [facility] [address] [id number] [address] [place] [address], [place] [address] Feb, [facility] [address] [id number] [address] [place] [address], [place] [address] Feb, [facility] [address] [id number] [address] [place] [address], [place] [address] Feb, [facility] [address] [id number] [facility] [address] Feb, [facility] [address] [id number] [address] [place] [address], [place] [address] Feb, [facility] [address] [id number] [address] [place] [address], [place] [address] Feb, [facility] [address] [id number] [address] [place] [address], [place] [address] Feb, [facility] [address] [id number] [address] [place] [address], [place] [address] Feb, [facility] [address] [id number] [address] [place] [address], [place] [address] Feb, [facility] [address] [id number] [address] [place] [address], [place] [address] Feb, [facility] [address] [id number] [address] [place] [address], [place] [address] Feb, [facility] [address] [id number] [address] [place] [address], [place] [address] Jan, [facility] [address] [id number] [address] [place] [address], [place] [address] Jan, [facility] [address] [id number] [address] [place] [address], [place] [address] Jan, [facility] [address] [id number] [address] [place] [address], [place] [address] Jan, [facility] [address] [id number] [address] [place] [address], [place] [address] Dec, [facility] [address] [id number] [address] [place] [address], [place] [address] Dec, [facility] [address] [id number] [address] [place] [address], [place] [address] Oct, [facility] [address] [id number] [address] [place] [address], [place] [address] Oct, [facility] [address] [id number] [address] [place] [address], [place] [address] Oct, [facility] [address] [id number] [address] [place] [address], [place] [address] Oct, [facility] [address] [id number] [address] [place] [address], [place] [address] Oct, [facility] [address] [id number] [address] [place] [address], [place] [address] Oct, [facility] [address] [id number] [address] [place] [address], [place] [address] Oct, [facility] [address] [id number] [address] [place] [address], [place] [address] Aug, [facility] [address] [id number] [address] [place] [address], [place] [address] Aug, [facility] [address] [id number] [address] [place] [address], [place] [address] Jul, [facility] [address] [id number] [address] [place] [address], [place] [address] Jul, [facility] [address] [id number] [address] [place] [address], [place] [address] Jul, [facility] [address] [id number] [address] [place] [address], [place] [address] Jul, [facility] [address] [id number] [address] [place] [address], [place] [address] Jun, [facility] [address] [id number] [address] [place] [address], [place] [address] Jun, [facility] [address] [id number] [address] [place] [address], [place] [address] May, [facility] [address] [id number] [address] [place] [address], [place] [address] May, [facility] [address] [id number] [address] [place] [phone] May, [facility] [address] [facility] [id number] [address] [place] [phone] Oct, [facility] [address] [facility] [id number] [address] [place] [phone] Oct, IMMUNIZATIONS No Known Immunizations SOCIAL HISTORY Never Assessed REASON FOR VISIT future labs PLAN OF CARE VITAL SIGNS MEDICATIONS No [...]
--- OUTSIDE RECORDS SUMMARY | 2019-10-01 05:01 | XMS REPORT ---
Author Author Mike PULIDO Organization [facility] Address [address] [place] [address] Care Team Providers Care Parole Supervisor Name Role Phone CYRUS PULIDO Unavailable PROBLEMS Type Condition ICD9-CM Code MTU04-CH Code Onset Dates Condition S tatus SNOMED Code Problem Hypothyroidism, unspecified E03.9 Ac tive 01559484 Problem Anxiety disorder, unspecified F41.9 Active 254345849 Problem Reactive depression F32.9 Active 50159459 Problem Chronic hepatitis C without hepatic coma B18.2 Active 396731226 Problem Essential hypertension I10 Active 23777846 Problem Obesity E66.9 Active 048628493 Problem Hyperlipidemia, unspecified hyperlipidemia type E7 8.5 Active 86321816 Problem Allergic rhinitis J30.9 Active 61 255566 ALLERGIES No Known Allergies ENCOUNTERS Encounter Location Date Diagnosis [place] [id number] [facility] [id number] [address] [place] [address] Oct, Essential hypertension I10 ; Hypothyroidism, unspecified E03.9 and Dysfunction of left eustachian tube H69.82 [facility] [address] [facility] [id number] [address] [place] [address] Sep, Chronic hepatitis C without hepatic coma B18.2 and Hypothyroidism, unspecified E03.9 [facility] [address] [facility] [id number] [address] [place] [address] Sep, Hypothyroidism, unspecified E03.9 [facility] [address] [facility] [id number] [address] [place] [address] May, Chronic hepatitis C without hepatic coma B18.2 [facility] [address] [facility] [id number] [address] [place] [address] May, [facility] [address] [facility] [id number] [address] [place] [address] Apr, Hypothyroidism, unspecified E03.9 and Chronic hepatitis C without hepatic coma B18.2 [facility] [address] [facility] [id number] [address] [place] [address] Apr, Chronic hepatitis C without hepatic coma B18.2 [facility] [address] [facility] [id number] [address] [place] [address] Mar, Reactive depression F32.9 an d Hypothyroidism, unspecified E03.9 [facility] [address] [facility] [id number] [address] [place] [address] Feb, Reactive depression F32.9 an d Anxiety disorder, unspecified F41.9 [facility] [address] [facility] [id number] [address] [place] [address] Feb, Chronic hepatitis C without hepatic coma B18.2 [facility] [address] [facility] [id number] [address] [place] [address] Jan, Chronic hepatitis C without hepatic coma B18.2 [facility] [address] [facility] [id number] [address] [place] [address] November, Encounter for immunization Z 23 and Chronic hepatitis C without hepatic coma B18.2 [facility] [address] [facility] [id number] [address] [place] [address] November, [facility] [address] [facility] [id number] [address] [place] [address] Oct, Chronic hepatitis C without hepatic coma B18.2 [facility] [address] [facility] [id number] [address] [place] [address] Sep, [facility] [address] [facility] [id number] [address] [place] [address] Aug, Gastroenteritis K52.9 [facility] [address] [facility] [id number] [address] [place] [address] Aug, [facility] [address] [facility] [id number] [address] [place] [address] Aug, [facility] [address] [facility] [id number] [address] [place] [address] Aug, [facility] [address] [facility] [id number] [address] [place] [address] Aug, [facility] [address] [facility] [id number] [address] [place] [address] Jul, Encounter for immunization Z 23 ; Sinus tachycardia R00.0 and Chronic hepatitis C without hepatic coma B18.2 [facility] [address] [facility] [id number] [address] [place] [address] Jun, Chronic hepatitis C without hepatic coma B18.2 [facility] [address] [facility] [id number] [address] [place] [address] Jun, Chronic hepatitis C without hepatic coma B18.2 [facility] [address] [place] [id number] [address] [place] [address] May, Anxiety disorder, unspecifie d F41.9 [facility] [address] [place] [id number] [address] [place] [address] May, Bronchitis J40 and Eustachia n tube dysfunction, bilateral H69.83 [facility] [address] [facility] [id number] [address] [place] [address] May, Chronic hepatitis C without hepatic coma B18.2 [facility] [address] [facility] [id number] [address] [place] [address] May, Chronic hepatitis C without hepatic coma B18.2 [facility] [address] [facility] [id number] [address] [place] [address] May, [facility] [address] [place] [id number] [address] [place] [address] Apr, Abnormal LFTs R79.89 [facility] [address] [facility] [id number] [address] [place] [address] Apr, Abnormal LFTs R79.89 [place] [address] [facility] [id number] [address] [place] [address] Apr, Obesity E66.9 ; Hypothyroidi sm, unspecified E03.9 and Hyperlipidemia, unspecified hyperlipidemia type E78.5 [place] [address] [facility] [id number] [address] [place] [address] Apr, Obesity E66.9 ; Hypothyroidi sm, unspecified E03.9 and Hyperlipidemia, unspecified hyperlipidemia type E78.5 [place] [address] [facility] [id number] [address] [place] [address] Apr, Visit for TB skin test Z11.1 [place] [address] [place] [id number] [place] [address] November, Obesity E66.9 [place] [address] [place] [id number] [place] [address] Oct, Obesity E66.9 [place] [address] [address] Oct, Essential hypertension I10 ; Hypothyroidism, unspecified E03.9 and Obesity E66.9 [place] [address] [place] [id number] [address] [place] [address] Jun, [place] [address] [place] [id number] [place] [address] May, Essential hypertension I10 ; Allergic rhinitis J30.9 ; Hypothyroidism, unspecified E03.9 and Otitis media, unspecified, bilateral H66.93 [place] [address] [place] [id number] [address] [place] [address] May, Unspecified hypothyroidism 2 44.9 and Screening for hypertension V81.1 [place] [address] [place] [id number] [address] [place] [address] May, [place] [address] [place] [id number] [place] [address] Apr, Hypothyroidism, unspecified E03.9 and Anxiety disorder, unspecified F41.9 [facility] [address] [place] [id number] [address] [place] [address] Feb, Essential hypertension, humza gn 401.1 [facility] [address] [place] [id number] [address] [place] [address] Feb, Unspecified hypothyroidism 2 44.9 and Screening for hypertension V81.1 [facility] [address] [place] [id number] [address] [place] [address] Feb, Essential hypertension, humza gn 401.1 ; Anxiety state, unspecified 300.00 and Rash of groin 782.1 [facility] [address] [place] [id number] [address] [place] [address] Feb, [facility] [address] [place] [id number] [place] [address] Dec, Essential hypertension, humza gn 401.1 ; Anxiety state, unspecified 300.00 and Rash of groin 782.1 [facility] [address] [place] [id number] [address] [place] [address] November, [facility] [address] [place] [id number] [address] [place] [address] Oct, [facility] [address] [place] [id number] [address] [place] [address] Oct, [facility] [address] [place] [id number] [address] [place] [address] Sep, [facility] [address] [place] [id number] [address] [place] [address] Sep, [facility] [address] [place] [id number] [address] [place] [address] Aug, [facility] [address] [place] [id number] [address] [place] [address] Aug, [facility] [address] [place] [id number] [address] [place] [address] Jul, [facility] [address] [id number] [address] [place] [address], [place] [address] Jul, [facility] [address] [id number] [address] [place] [address], [place] [address] Jun, [facility] [address] [id number] [address] [place] [address], [place] [address] Jun, [facility] [address] [id number] [address] [place] [address], [place] [address] Jun, [facility] [address] [id number] [address] [place] [address], [place] [address] Jun, [facility] [address] [id number] [address] [place] [address], [place] [address] Jun, [facility] [address] [id number] [address] [place] [address], [place] [address] Jun, [facility] [address] [id number] [address] [place] [address], [place] [address] Jun, [facility] [address] [id number] [address] [place] [address], [place] [address] Jun, [facility] [address] [id number] [address] [place] [address], [place] [address] May, [facility] [address] [id number] [address] [place] [address], [place] [address] May, [facility] [address] [id number] [address] [place] [address], [place] [address] Feb, [facility] [address] [id number] [address] [place] [address], [place] [address] Feb, [facility] [address] [id number] [address] [place] [address], [place] [address] Feb, [facility] [address] [id number] [address] [place] [address], [place] [address] Feb, [facility] [address] [id number] [facility] [address] Feb, [facility] [address] [id number] [address] [place] [address], [place] [address] Feb, [facility] [address] [id number] [address] [place] [address], [place] [address] Feb, [facility] [address] [id number] [address] [place] [address], [place] [address] Feb, [facility] [address] [id number] [address] [place] [address], [place] [address] Feb, [facility] [address] [id number] [address] [place] [address], [place] [address] Feb, [facility] [address] [id number] [address] [place] [address], [place] [address] Feb, [facility] [address] [id number] [address] [place] [address], [place] [address] Feb, [facility] [address] [id number] [address] [place] [address], [place] [address] Jan, [facility] [address] [id number] [address] [place] [address], [place] [address] Jan, [facility] [address] [id number] [address] [place] [address], [place] [address] Jan, [facility] [address] [id number] [address] [place] [address], [place] [address] Jan, [facility] [address] [id number] [address] [place] [address], [place] [address] Dec, [facility] [address] [id number] [address] [place] [address], [place] [address] Dec, [facility] [address] [id number] [address] [place] [address], [place] [address] Oct, [facility] [address] [id number] [address] [place] [address], [place] [address] Oct, [facility] [address] [id number] [address] [place] [address], [place] [address] Oct, [facility] [address] [id number] [address] [place] [address], [place] [address] Oct, [facility] [address] [id number] [address] [place] [address], [place] [address] Oct, [facility] [address] [id number] [address] [place] [address], [place] [address] Oct, [facility] [address] [id number] [address] [place] [address], [place] [address] Oct, [facility] [address] [id number] [address] [place] [address], [place] [address] Aug, [facility] [address] [id number] [address] [place] [address], [place] [address] Aug, [facility] [address] [id number] [address] [place] [address], [place] [address] Jul, [facility] [address] [id number] [address] [place] [address], [place] [address] Jul, [facility] [address] [id number] [address] [place] [address], [place] [address] Jul, [facility] [address] [id number] [address] [place] [address], [place] [address] Jul, [facility] [address] [id number] [address] [place] [address], [place] [address] Jun, [facility] [address] [id number] [address] [place] [address], [place] [address] Jun, [facility] [address] [id number] [address] [place] [address], [place] [address] May, [facility] [address] [id number] [address] [place] [address], [place] [address] May, [facility] [address] [id number] [address] [place] [address] May, [facility] [address] [facility] [id number] [address] [place] [address] Oct, [facility] [address] [facility] [id number] [address] [place] [address] Oct, IMMUNIZATIONS No Known Immunizations SOCIAL HISTORY Never Assessed REASON FOR VISIT Pain management (chronic) -AL PLAN OF CARE Activity Details Follow Up 6 Months Reason: VITAL SIGNS Height 70 in 2017-11-17 Weight 309 lbs 2017-11-17 Temperature 98.1 degrees Fahrenheit 2017-11-17 Heart Rate 106 bpm 2017-11-17 Respiratory Rate 22 2017-11-17 BMI 44.33 kg/m2 2017-11-17 Blood pressure systolic 134 mmHg 2017-11-17 Blood pressure diastolic 86 mmHg 2017-11-17 MEDICATIONS Medication Instructions Dosage Frequency Start Date End Date Duration S tatus SudoGest 60 mg Orally every 6 hrs 1 tablet as needed 6h Oct, 8 10 days Active Levothyroxine Sodium 100 MCG TAKE ONE TABLET BY MOUTH ONCE DAILY 30 Active Aspirin 81 mg take 1 tablet (81 mg) by oral route once daily Oct, Active Lisinopril 10 MG TAKE ONE TABLET BY MOUTH ONCE DAILY 30 Active Claritin-D 12 Hour 5-120 MG Orally every 12 hrs 1 tablet as needed 12h May, Not-Taking RESULTS No Results PROCEDURES No Known procedures [...]
--- OUTSIDE RECORDS SUMMARY | 2019-10-01 05:01 | XMS REPORT ---
Author Author Mike PULIDO Organization [facility] Address [address] [place] [address] Care Team Providers Care Cloth Winder Machine Operator Name Role Phone CYRUS PULIDO Unavailable PROBLEMS Type Condition ICD9-CM Code [id number] Code Onset Dates Condition S tatus SNOMED Code Problem Hypothyroidism, unspecified E03.9 Ac tive 01736662 Problem Anxiety disorder, unspecified F41.9 Active 271022837 Problem Reactive depression F32.9 Active 54674798 Problem Chronic hepatitis C without hepatic coma B18.2 Active 601602281 Problem Essential hypertension I10 Active 56638560 Problem Obesity E66.9 Active 443153778 Problem Hyperlipidemia, unspecified hyperlipidemia type E7 8.5 Active 26174280 Problem Allergic rhinitis J30.9 Active 61 092895 ALLERGIES No Known Allergies ENCOUNTERS Encounter Location Date Diagnosis [place] [address] [facility] [id number] [address] [place] [id number] Oct, Essential hypertension I10 ; Hypothyroidism, unspecified E03.9 and Dysfunction of left eustachian tube H69.82 [facility] [address] [facility] [id number] [address] [place] [phone] Sep, Chronic hepatitis C without hepatic coma B18.2 and Hypothyroidism, unspecified E03.9 [facility] [address] [facility] [id number] [address] [place] [address] Sep, Hypothyroidism, unspecified E03.9 [facility] [address] [facility] [id number] [address] [place] [address] May, Chronic hepatitis C without hepatic coma B18.2 [facility] [address] [facility] [id number] [address] [place] [address] May, [facility] [address] [facility] [id number] [address] [place] [address] Apr, Hypothyroidism, unspecified E03.9 and Chronic hepatitis C without hepatic coma B18.2 [facility] [address] [facility] [id number] [address] [place] [address] Apr, Chronic hepatitis C without hepatic coma B18.2 [facility] [address] [facility] [id number] [address] [place] [phone] Mar, Reactive depression F32.9 an d Hypothyroidism, unspecified E03.9 [facility] [address] [facility] [id number] [address] [place] [phone] Feb, Reactive depression F32.9 an d Anxiety disorder, unspecified F41.9 [facility] [address] [facility] [id number] [address] [place] [address] Feb, Chronic hepatitis C without hepatic coma B18.2 [facility] [address] [facility] [id number] [address] [place] [phone] Jan, Chronic hepatitis C without hepatic coma B18.2 [facility] [address] [facility] [id number] [address] [place] [phone] November, Encounter for immunization Z 23 and Chronic hepatitis C without hepatic coma B18.2 [facility] [address] [facility] [id number] [address] [place] [phone] November, [facility] [address] [facility] [id number] [address] [place] [address] Oct, Chronic hepatitis C without hepatic coma B18.2 [facility] [address] [facility] [id number] [address] [place] [phone] Sep, [facility] [address] [facility] [id number] [address] [place] [phone] Aug, Gastroenteritis K52.9 [facility] [address] [facility] [id number] [address] [place] [phone] Aug, [facility] [address] [facility] [id number] [address] [place] [phone] Aug, [facility] [address] [facility] [id number] [address] [place] [phone] Aug, [facility] [address] [facility] [id number] [address] [place] [phone] Aug, [facility] [address] [facility] [id number] [address] [place] [phone] Jul, Encounter for immunization Z 23 ; Sinus tachycardia R00.0 and Chronic hepatitis C without hepatic coma B18.2 [facility] [address] [facility] [id number] [address] [place] [phone] Jun, Chronic hepatitis C without hepatic coma B18.2 [facility] [address] [facility] [id number] [address] [place] [address] Jun, Chronic hepatitis C without hepatic coma B18.2 [facility] [address] [place] [id number] [address] [place] [id number] May, Anxiety disorder, unspecifie d F41.9 [facility] [address] [place] [id number] [address] [place] [address] May, Bronchitis J40 and Eustachia n tube dysfunction, bilateral H69.83 [facility] [address] [facility] [id number] [address] [place] [phone] May, Chronic hepatitis C without hepatic coma B18.2 [facility] [address] [facility] [id number] [address] [place] [phone] May, Chronic hepatitis C without hepatic coma B18.2 [facility] [address] [facility] [id number] [address] [place] [address] May, [facility] [address] [place] [id number] [address] [place] [phone] Apr, Abnormal LFTs R79.89 [facility] [address] [facility] [id number] [address] [place] [phone] Apr, Abnormal LFTs R79.89 [place] [address] [facility] [id number] [address] [place] [address] Apr, Obesity E66.9 ; Hypothyroidi sm, unspecified E03.9 and Hyperlipidemia, unspecified hyperlipidemia type E78.5 [place] [address] [facility] [id number] [address] [place] [phone] Apr, Obesity E66.9 ; Hypothyroidi sm, unspecified E03.9 and Hyperlipidemia, unspecified hyperlipidemia type E78.5 [place] [address] [facility] [id number] [address] [place] [address] Apr, Visit for TB skin test Z11.1 [place] [address] [place] [id number] [place] [address] November, Obesity E66.9 [place] [address] [place] [id number] [place] [address] Oct, Obesity E66.9 [place] [address] [address] Oct, Essential hypertension I10 ; Hypothyroidism, unspecified E03.9 and Obesity E66.9 [place] [address] [place] [id number] [address] [place] [address] Jun, [place] [address] [place] [id number] [place] [phone] May, Essential hypertension I10 ; Allergic rhinitis J30.9 ; Hypothyroidism, unspecified E03.9 and Otitis media, unspecified, bilateral H66.93 [place] [address] [place] [id number] [address] [place] [phone] May, Unspecified hypothyroidism 2 44.9 and Screening for hypertension V81.1 [place] [address] [place] [id number] [address] [place] [phone] May, [place] [address] [place] [id number] [place] [address] Apr, Hypothyroidism, unspecified E03.9 and Anxiety disorder, unspecified F41.9 [facility] [address] [place] [id number] [address] [place] [phone] Feb, Essential hypertension, humza gn 401.1 [facility] [address] [place] [id number] [address] [place] [phone] Feb, Unspecified hypothyroidism 2 44.9 and Screening for hypertension V81.1 [facility] [address] [place] [id number] [address] [place] [address] Feb, Essential hypertension, humza gn 401.1 ; Anxiety state, unspecified 300.00 and Rash of groin 782.1 [facility] [address] [place] [id number] [address] [place] [phone] Feb, [facility] [address] [place] [id number] [place] [address] Dec, Essential hypertension, humza gn 401.1 ; Anxiety state, unspecified 300.00 and Rash of groin 782.1 [facility] [address] [place] [id number] [address] [place] [phone] November, [facility] [address] [place] [id number] [address] [place] [phone] Oct, [facility] [address] [place] [id number] [address] [place] [phone] Oct, [facility] [address] [place] [id number] [address] [place] [phone] Sep, [facility] [address] [place] [id number] [address] [place] [phone] Sep, [facility] [address] [place] [id number] [address] [place] [phone] Aug, [facility] [address] [place] [id number] [address] [place] [phone] Aug, [facility] [address] [place] [id number] [address] [place] [phone] Jul, [facility] [address] [id number] [address] [place] [address], [place] [address] Jul, [facility] [address] [id number] [address] [place] [address], [place] [address] Jun, [facility] [address] [id number] [address] [place] [address], [place] [address] Jun, [facility] [address] [id number] [address] [place] [address], [place] [address] Jun, [facility] [address] [id number] [address] [place] [address], [place] [address] Jun, [facility] [address] [id number] [address] [place] [address], [place] [address] Jun, [facility] [address] [id number] [address] [place] [address], [place] [address] Jun, [facility] [address] [id number] [address] [place] [address], [place] [address] Jun, [facility] [address] [id number] [address] [place] [address], [place] [address] Jun, [facility] [address] [id number] [address] [place] [address], [place] [address] May, [facility] [address] [id number] [address] [place] [address], [place] [address] May, [facility] [address] [id number] [address] [place] [address], [place] [address] Feb, [facility] [address] [id number] [address] [place] [address], [place] [address] Feb, [facility] [address] [id number] [address] [place] [address], [place] [address] Feb, [facility] [address] [id number] [address] [place] [address], [place] [address] Feb, [facility] [address] [id number] [facility] [place] [address] Feb, [facility] [address] [id number] [address] [place] [address], [place] [address] Feb, [facility] [address] [id number] [address] [place] [address], [place] [address] Feb, [facility] [address] [id number] [address] [place] [address], [place] [address] Feb, [facility] [address] [id number] [address] [place] [address], [place] [address] Feb, [facility] [address] [id number] [address] [place] [address], [place] [address] Feb, [facility] [address] [id number] [address] [place] [address], [place] [address] Feb, [facility] [address] [id number] [address] [place] [address], [place] [address] Feb, [facility] [address] [id number] [address] [place] [address], [place] [address] Jan, [facility] [address] [id number] [address] [place] [address], [place] [address] Jan, [facility] [address] [id number] [address] [place] [address], [place] [address] Jan, [facility] [address] [id number] [address] [place] [address], [place] [address] Jan, [facility] [address] [id number] [address] [place] [address], [place] [address] Dec, [facility] [address] [id number] [address] [place] [address], [place] [address] Dec, [facility] [address] [id number] [address] [place] [address], [place] [address] Oct, [facility] [address] [id number] [address] [place] [address], [place] [address] Oct, [facility] [address] [id number] [address] [place] [address], [place] [address] Oct, [facility] [address] [id number] [address] [place] [address], [place] [address] Oct, [facility] [address] [id number] [address] [place] [address], [place] [address] Oct, [facility] [address] [id number] [address] [place] [address], [place] [address] Oct, [facility] [address] [id number] [address] [place] [address], [place] [address] Oct, [facility] [address] [id number] [address] [place] [address], [place] [address] Aug, [facility] [address] [id number] [address] [place] [address], [place] [address] Aug, [facility] [address] [id number] [address] [place] [address], [place] [address] Jul, [facility] [address] [id number] [address] [place] [address], [place] [address] Jul, [facility] [address] [id number] [address] [place] [address], [place] [address] Jul, [facility] [address] [id number] [address] [place] [address], [place] [address] Jul, [facility] [address] [id number] [address] [place] [address], [place] [address] Jun, [facility] [address] [id number] [address] [place] [address], [place] [address] Jun, [facility] [address] [id number] [address] [place] [address], [place] [address] May, [facility] [address] [id number] [address] [place] [address], [place] [address] May, [facility] [address] [id number] [address] [place] [address] May, [facility] [address] [facility] [id number] [address] [place] [address] Oct, [facility] [address] [facility] [id number] [address] [place] [phone] Oct, IMMUNIZATIONS No Known Immunizations SOCIAL HISTORY Never Assessed REASON FOR VISIT anxiety attack- Rachana VENEGAS PLAN OF CARE Activity Details Follow Up 4 Weeks Reason: VITAL SIGNS Height 70 in 2017-03-17 Weight 331.3 lbs 2017-03-17 Temperature 97.7 degrees Fahrenheit 2017-03-17 Heart Rate 92 bpm 2017-03-17 Respiratory Rate 22 2017-03-17 BMI 47.53 kg/m2 2017-03-17 Blood pressure systolic 116 mmHg 2017-03-17 Blood pressure diastolic 90 mmHg 2017-03-17 MEDICATIONS Medication Instructions Dosage Frequency Start Date End Date Duration S tatus Levothyroxine Sodium 100 MCG TAKE ONE TA BLET BY MOUTH ONCE DAILY (MUST HAVE APPOINTMENT PRIOR TO NEXT REFILL!!!) 30 Active Lisinopril 10 MG Orally Once a day 1 tablet 24h 30 Active Ativan 1 MG Orally twice a day, prn anxiety 1 Feb, 0 days Active Aspirin 81 mg take 1 tablet (81 mg) by oral route once daily Oct, Active Zoloft 50 mg Orally Once a day 1 tablet 24h Feb, 30 day(s) Active RESULTS No Results PROCEDURES No Known [...]
--- OUTSIDE RECORDS SUMMARY | 2019-10-01 05:01 | XMS REPORT ---
Author Author Mike PULIDO Organization [employer] Address Unknown Phone Unavailable Care Team Providers Care Operating Theatre Technician Name Role Phone CYRUS PULIDO CP Unavailable Allergies No Known Allergies Problems Problem Type Condition Code Onset Dates Condition Statu s Problem Hyperlipidemia, unspecified hyperlipidemia type E78.5 Active Problem Obesity E66.9 Active Problem Chronic hepatitis C without hepatic coma B18.2 Active Problem Hypothyroidism, unspecified E03.9 Active Problem Anxiety disorder, unspecified F41.9 Active Problem Essential hypertension I10 Activ e Problem Allergic rhinitis J30.9 Active Medications No Known Medications Results No Known Results Summary Purpose [employer] Submission
--- OUTSIDE RECORDS SUMMARY | 2019-10-01 05:01 | XMS REPORT ---
Author Author Mike HWANG Organization [facility] Address [address] [place] [address] Care Team Providers Care Vice President Biostatistics Name Role Phone ALEN HWANG Unavailable PROBLEMS Type Condition ICD9-CM Code IAD49-YA Code Onset Dates Condition S tatus SNOMED Code Problem Hypothyroidism, unspecified E03.9 Ac tive 78275198 Problem Anxiety disorder, unspecified F41.9 Active 058298574 Problem Reactive depression F32.9 Active 10645062 Problem Chronic hepatitis C without hepatic coma B18.2 Active 872161127 Problem Essential hypertension I10 Active 29843115 Problem Obesity E66.9 Active 619637029 Problem Hyperlipidemia, unspecified hyperlipidemia type E7 8.5 Active 11108769 Problem Allergic rhinitis J30.9 Active 61 148867 ALLERGIES No Information ENCOUNTERS Encounter Location Date Diagnosis [facility] [address] [id number] [address] [place] [phone] Oct, Essential hypertension I10 ; Hypothyroidism, unspecified E03.9 and Dysfunction of left eustachian tube H69.82 [facility] [address] [id number] [address] [place] [phone] Sep, Chronic hepatitis C without hepatic coma B18.2 and Hypothyroidism, unspecified E03.9 [facility] [address] [id number] [address] [place] [phone] Sep, Hypothyroidism, unspecified E03.9 [facility] [address] [id number] [address] [place] [address] May, Chronic hepatitis C without hepatic coma B18.2 [facility] [address] [id number] [address] [place] [phone] May, [facility] [address] [id number] [address] [place] [phone] Apr, Hypothyroidism, unspecified E03.9 and Chronic hepatitis C without hepatic coma B18.2 [facility] [address] [facility] [id number] [address] [place] [phone] Apr, Chronic hepatitis C without hepatic coma B18.2 [facility] [address] [facility] [id number] [address] [place] [phone] Mar, Reactive depression F32.9 an d Hypothyroidism, unspecified E03.9 [facility] [address] [facility] [id number] [address] [place] [phone] Feb, Reactive depression F32.9 an d Anxiety disorder, unspecified F41.9 [facility] [address] [facility] [id number] [address] [place] [phone] Feb, Chronic hepatitis C without hepatic coma B18.2 [facility] [address] [id number] [address] [place] [phone] Jan, Chronic hepatitis C without hepatic coma B18.2 [facility] [address] [facility] [id number] [address] [place] [phone] November, Encounter for immunization Z 23 and Chronic hepatitis C without hepatic coma B18.2 [facility] [address] [facility] [id number] [address] [place] [phone] November, [facility] [address] [facility] [id number] [address] [place] [phone] Oct, Chronic hepatitis C without hepatic coma B18.2 [facility] [address] [facility] [id number] [address] [place] [address] Sep, [facility] [address] [id number] [address] [place] [phone] Aug, Gastroenteritis K52.9 [facility] [address] [facility] [id number] [address] [place] [phone] Aug, [facility] [address] [id number] [address] [place] [phone] Aug, [facility] [address] [facility] [id number] [address] [place] [phone] Aug, [facility] [address] [facility] [id number] [address] [place] [phone] Aug, [facility] [address] [facility] [id number] [address] [place] [phone] Jul, Encounter for immunization Z 23 ; Sinus tachycardia R00.0 and Chronic hepatitis C without hepatic coma B18.2 [facility] [address] [facility] [id number] [address] [place] [phone] Jun, Chronic hepatitis C without hepatic coma B18.2 [facility] [address] [facility] [id number] [address] [place] [phone] Jun, Chronic hepatitis C without hepatic coma B18.2 [facility] [address] [id number] [address] [place] [phone] May, Anxiety disorder, unspecifie d F41.9 [facility] [address] [facility] [id number] [address] [place] [phone] May, Bronchitis J40 and Eustachia n tube dysfunction, bilateral H69.83 [facility] [address] [facility] [id number] [address] [place] [phone] May, Chronic hepatitis C without hepatic coma B18.2 [facility] [address] [facility] [id number] [address] [place] [phone] May, Chronic hepatitis C without hepatic coma B18.2 [facility] [address] [facility] [id number] [address] [place] [phone] May, [facility] [address] [facility] [id number] [address] [place] [phone] Apr, Abnormal LFTs R79.89 [facility] [address] [facility] [id number] [address] [place] [phone] Apr, Abnormal LFTs R79.89 [place] [address] [facility] [id number] [address] [place] [phone] 11 Apr, 2016 Obesity E66.9 ; Hypothyroidi sm, unspecified E03.9 and Hyperlipidemia, unspecified hyperlipidemia type E78.5 [place] [address] [facility] [id number] [address] [place] [phone] 10 Apr, 2016 Obesity E66.9 ; Hypothyroidi sm, unspecified E03.9 and Hyperlipidemia, unspecified hyperlipidemia type E78.5 [place] [address] [id number] [address] [place] [phone] Apr, Visit for TB skin test Z11.1 [place] [address] [address] November, Obesity E66.9 [address] [address] [address] Oct, Obesity E66.9 [address] [address] [phone] Oct, Essential hypertension I10 ; Hypothyroidism, unspecified E03.9 and Obesity E66.9 [place] [address] [address] Jun, [address] [address] [address] May, Essential hypertension I10 ; Allergic rhinitis J30.9 ; Hypothyroidism, unspecified E03.9 and Otitis media, unspecified, bilateral H66.93 [place] [address] [id number] [address] [place] [phone] May, Unspecified hypothyroidism 2 44.9 and Screening for hypertension V81.1 [place] [address] [id number] [address] [place] [phone] May, [place] [id number] [place] [phone] Apr, Hypothyroidism, unspecified E03.9 and Anxiety disorder, unspecified F41.9 [facility] [address] [facility] [id number] [address] [place] [phone] Feb, Essential hypertension, humza gn 401.1 [facility] [address] [facility] [id number] [address] [place] [phone] Feb, Unspecified hypothyroidism 2 44.9 and Screening for hypertension V81.1 [facility] [address] [id number] [address] [place] [phone] Feb, Essential hypertension, humza gn 401.1 ; Anxiety state, unspecified 300.00 and Rash of groin 782.1 [facility] [address] [id number] [address] [place] [phone] Feb, [facility] [address] [id number] [address] [place] [phone] Dec, Essential hypertension, humza gn 401.1 ; Anxiety state, unspecified 300.00 and Rash of groin 782.1 [facility] [address] [id number] [address] [place] [phone] November, [facility] [address] [facility] [id number] [address] [place] [phone] Oct, [facility] [address] [id number] [address] [place] [phone] Oct, [facility] [address] [id number] [address] [place] [phone] Sep, [facility] [address] [facility] [id number] [address] [place] [phone] Sep, [facility] [address] [id number] [address] [place] [phone] Aug, [facility] [address] [facility] [id number] [address] [place] [phone] Aug, [facility] [address] [id number] [address] [place] [phone] Jul, [facility] [address] [id number] [address] [place] [address], [place] [address] Jul, [facility] [address] [id number] [address] [place] [address], [place] [address] Jun, [facility] [address] [id number] [address] [place] [address], [place] [address] Jun, [facility] [address] [id number] [address] [place] [address], [place] [address] Jun, [facility] [address] [id number] [address] [place] [address], [place] [address] Jun, [facility] [address] [id number] [address] [place] [address], [place] [address] Jun, [facility] [address] [id number] [address] [place] [address], [place] [address] Jun, [facility] [address] [id number] [address] [place] [address], [place] [address] Jun, [facility] [address] [id number] [address] [place] [address], [place] [address] Jun, [facility] [address] [id number] [address] [place] [address], [place] [address] May, [facility] [address] [id number] [address] [place] [address], [place] [address] May, [facility] [address] [id number] [address] [place] [address], [place] [address] Feb, [facility] [address] [id number] [address] [place] [address], [place] [address] Feb, [facility] [address] [id number] [address] [place] [address], [place] [address] Feb, [facility] [address] [id number] [address] [place] [address], [place] [address] Feb, [facility] [address] [id number] [address] [place] [address], [place] [address] Feb, [facility] [address] [id number] [address] [place] [address], [place] [address] Feb, [facility] [address] [id number] [address] [place] [address], [place] [address] Feb, [facility] [address] [id number] [address] [place] [address], [place] [address] Feb, [facility] [address] [id number] [address] [place] [address], [place] [address] Feb, [facility] [address] [id number] [address] [place] [address], [place] [address] Feb, [facility] [address] [id number] [address] [place] [address], [place] [address] Feb, [facility] [address] [id number] [address] [place] [address], [place] [address] Feb, [facility] [address] [id number] [address] [place] [address], [place] [address] Jan, [facility] [address] [id number] [address] [place] [address], [place] [address] Jan, [facility] [address] [id number] [address] [place] [address], [place] [address] Jan, [facility] [address] [id number] [address] [place] [address], [place] [address] Jan, [facility] [address] [id number] [address] [place] [address], [place] [address] Dec, [facility] [address] [id number] [address] [place] [address], [place] [address] Dec, [facility] [address] [id number] [address] [place] [address], [place] [address] Oct, [facility] [address] [id number] [address] [place] [address], [place] [address] Oct, [facility] [address] [id number] [address] [place] [address], [place] [address] Oct, [facility] [address] [id number] [address] [place] [address], [place] [address] Oct, [facility] [address] [id number] [address] [place] [address], [place] [address] Oct, [facility] [address] [id number] [address] [place] [address], [place] [address] Oct, [facility] [address] [id number] [address] [place] [address], [place] [address] Oct, [facility] [address] [id number] [address] [place] [address], [place] [address] Aug, [facility] [address] [id number] [address] [place] [address], [place] [address] Aug, [facility] [address] [id number] [address] [place] [address], [place] [address] Jul, [facility] [address] [id number] [address] [place] [address], [place] [address] Jul, [facility] [address] [id number] [address] [place] [address], [place] [address] Jul, [facility] [address] [id number] [address] [place] [address], [place] [address] Jul, [facility] [address] [id number] [address] [place] [phone] Jun, [facility] [address] [id number] [address] [place] [address], [place] [address] Jun, [facility] [address] [id number] [address] [place] [address], [place] [address] May, [facility] [address] [id number] [address] [place] [address], [place] [address] May, [facility] [address] [id number] [address] [place] [phone] May, [facility] [address] [facility] [id number] [address] [place] [phone] Oct, [facility] [address] [facility] [id number] [address] [place] [address] Oct, IMMUNIZATIONS No Known Immunizations SOCIAL HISTORY Never Assessed REASON FOR VISIT Lab (walk[facility]in[facility] PLAN OF CARE VITAL SIGNS MEDICATIONS No Known Medications RESULTS No Results PROCEDURES Procedure Date Ordered Result Body Site COMPREHEN METABOLIC PANEL October 20, 2017 COMPLETE CBC W/AUTO DIFF WBC October 20, 2017 VENIPUNCT, ROUTINE* October 20, 2017 ASSAY THYROID STIM HORMONE October 20, 2017 INSTRUCTIONS MEDICATIONS ADMINISTERED No Known Medications MEDICAL (GENERAL) HISTORY Type Description Date Medical History Hearing loss Medical History Acid reflux Medical History Inguinal hernia at -1965 Medical History Depression Medical History HTN Medical History ANXIETY Surgical History Left ear surgery Surgical History Appendectomy Surgical History Left knee ACL/MCL repair Surgical History HERNIA SURGERY
--- OUTSIDE RECORDS SUMMARY | 2019-10-01 05:01 | XMS REPORT ---
Author Author Mike PULIDO Organization [facility] Address [address] [place] [address] Care Team Providers Care Residential Assistant Name Role Phone CYRUS PULIDO Unavailable PROBLEMS Type Condition ICD9-CM Code [id number] Code Onset Dates Condition S tatus SNOMED Code Problem Anxiety disorder, unspecified F41.9 Active 676049202 Assessment Chronic hepatitis C without hepatic coma B18.2 Jun, Active 071488413 Problem Chronic hepatitis C without hepatic coma B18.2 Active 530889994 Problem Hyperlipidemia, unspecified hyperlipidemia type E7 8.5 Active 63388392 Problem Allergic rhinitis J30.9 Active 61 326977 Problem Hypothyroidism, unspecified E03.9 Ac tive 41167711 Problem Obesity E66.9 Active 380137731 Problem Essential hypertension I10 Active 01740809 ALLERGIES Unknown Allergies SOCIAL HISTORY No smoking Hx information available PLAN OF CARE VITAL SIGNS MEDICATIONS Unknown Medications RESULTS No Results PROCEDURES Procedure Date Ordered Related Diagnosis Body Site PROTHROMBIN TIME Jun 28, 2016 DRUG SCREEN NON TLC DEVICES Jun 28, 2016 IMMUNIZATIONS No Known Immunizations
--- OUTSIDE RECORDS SUMMARY | 2019-10-01 05:01 | XMS REPORT ---
Author Author Mike HWANG Organization [facility] Address [address] [place] [address] Care Team Providers Care Practice Physician Name Role Phone ALEN HWANG Unavailable PROBLEMS Type Condition ICD9-CM Code OEY34-QY Code Onset Dates Condition S tatus SNOMED Code Problem Hypothyroidism, unspecified E03.9 Ac tive 10227250 Problem Anxiety disorder, unspecified F41.9 Active 771021335 Problem Reactive depression F32.9 Active 27540278 Problem Chronic hepatitis C without hepatic coma B18.2 Active 736743451 Problem Essential hypertension I10 Active 31840037 Problem Obesity E66.9 Active 830409141 Problem Hyperlipidemia, unspecified hyperlipidemia type E7 8.5 Active 65384274 Problem Allergic rhinitis J30.9 Active 61 865723 ALLERGIES Substance Reaction Event Type Date Status N.K.D.A. Unknown Non Drug Allergy Jul, Unknown SOCIAL HISTORY No smoking Hx information available PLAN OF CARE Activity Details Follow Up we will call Reason: VITAL SIGNS Height 70 in 2016-07-28 Weight 312.0 lbs 2016-07-28 Temperature 98.7 degrees Fahrenheit 2016-07-28 Heart Rate 120 bpm 2016-07-28 Respiratory Rate 24 2016-07-28 BMI 44.76 kg/m2 2016-07-28 Blood pressure systolic 135 mmHg 2016-07-28 Blood pressure diastolic 93 mmHg 2016-07-28 MEDICATIONS Medication Instructions Dosage Frequency Start Date End Date Duration S tatus Aspirin 81 mg take 1 tablet (81 mg) by oral route once daily Oct, Active HydrOXYzine HCl 25 MG TAKE ONE TABLET BY MOUTH TWICE DAILY 30 Active Harvoni 90-400 MG Orally Once a day 1 tablet 24h Jul, Sep, 56 days Active Claritin-D 12 Hour 5-120 MG Orally every 12 hrs 1 tablet as needed 12h 21 May, 2016 Active Levothyroxine Sodium 100 MCG TAKE ONE TA BLET BY MOUTH ONCE DAILY (MUST HAVE APPOINTMENT PRIOR TO NEXT REFILL!!!) 30 Active Lisinopril 10 MG Orally Once a day 1 tablet 24h 30 Active RESULTS No Results PROCEDURES Procedure Date Ordered Related Diagnosis Body Site PPV23 (PNEUMOVAX) Jul 28, 2016 TWINRIX (HEP A/B) Jul 28, 2016 SINGLE IMMUNIZATION ADMIN Jul 28, 2016 FLUARIX QUAD P-FREE 3 AND UP .50 2015Jul 28, 2016 Office Visit, Est Pt., Level 4 Jul 28, 2016 IMMUNIZATION ADMIN, EACH ADD (please include units) Jul 28, 2016 IMMUNIZATIONS Vaccine Route Administration Date Status TWINRIX (HEP A/B) IM Intramuscular Jul 28, 2016 Administered FLUARIX QUAD P-FREE 3 AND UP .50 2015 IM Intramuscular Jul 28 017 Administered PPV23 (PNEUMOVAX) IM Intramuscular Jul 28, 2016 Administered
--- OUTSIDE RECORDS SUMMARY | 2019-10-01 05:02 | XMS REPORT ---
Author Author Mike PULIDO [facility] eClinical[employer] Address Unknown Phone Unavailable Care Team Providers Care Undercollar Maker Name Role Phone CYRUS PULIDO CP Unavailable Allergies No Known Allergies Problems Problem Type Condition Code Onset Dates Condition Statu s Assessment Hypothyroidism, unspecified E03.9 Active Assessment Hyperlipidemia, unspecified hyperlipidemia type E78.5 Active Problem Obesity E66.9 Active Problem Essential hypertension I10 Activ e Problem Hyperlipidemia, unspecified hyperlipidemia type E78.5 Active Problem Anxiety disorder, unspecified F41.9 Active Assessment Obesity E66.9 Active Problem Allergic rhinitis J30.9 Active Problem Hypothyroidism, unspecified E03.9 Active Medications No Known Medications Procedures Procedure Coding System Code Date ASSAY THYROID STIM HORMONE CPT-4 33830 Apr 242015 LIPID PANEL CPT-4 27586 May 04, 2016 ASSAY OF ESTRADIOL CPT-4 73139 May 04, 2016 VENIPUNCT, ROUTINE* CPT-4 29858 May 04, 2016 COMPREHEN METABOLIC PANEL CPT-4 66156 Apr Results Name Result Date Reference Range Unit Abnormali ty Flag ROUTINE VENIPUNCTURE Summary Purpose eClinicalWorks Submission
--- OUTSIDE RECORDS SUMMARY | 2019-10-01 05:02 | XMS REPORT ---
Author Author Mike HWANG Organization [facility] Address [address] [place] [address] Care Team Providers Care Ham Passer Name Role Phone ALEN HWANG Unavailable PROBLEMS Type Condition ICD9-CM Code HJG13-DS Code Onset Dates Condition S tatus SNOMED Code Problem Hypothyroidism, unspecified E03.9 Ac tive 28664235 Problem Anxiety disorder, unspecified F41.9 Active 538562098 Problem Reactive depression F32.9 Active 86803155 Problem Chronic hepatitis C without hepatic coma B18.2 Active 956058728 Problem Essential hypertension I10 Active 77471688 Problem Obesity E66.9 Active 790360828 Problem Hyperlipidemia, unspecified hyperlipidemia type E7 8.5 Active 92956383 Problem Allergic rhinitis J30.9 Active 61 797182 ALLERGIES No Known Allergies SOCIAL HISTORY Never Assessed PLAN OF CARE Activity Details Follow Up 4 Weeks Reason: Pending Test HEP C RNA QUANT ([facility]IANCE ON LY) VITAL SIGNS Height 70 in 2016-12-21 Weight 321.4 lbs 2016-12-21 Temperature 98.1 degrees Fahrenheit 2016-12-21 Heart Rate 96 bpm 2016-12-21 Respiratory Rate 24 2016-12-21 Oximetry at rest:95 % 2016-12-21 BMI 46.11 kg/m2 2016-12-21 Blood pressure systolic 148 mmHg 2016-12-21 Blood pressure diastolic 98 mmHg 2016-12-21 MEDICATIONS Medication Instructions Dosage Frequency Start Date End Date Duration S tatus Lisinopril 10 MG Orally Once a day 1 tablet 24h 30 Active HydrOXYzine HCl 25 MG TAKE ONE TABLET BY MOUTH TWICE DAILY 30 Active Aspirin 81 mg take 1 tablet (81 mg) by oral route once daily Oct, Active Levothyroxine Sodium 100 MCG TAKE ONE TA BLET BY MOUTH ONCE DAILY (MUST HAVE APPOINTMENT PRIOR TO NEXT REFILL!!!) 30 Active RESULTS Name Result Date Reference Range CBC 2016-12-21 WBC 9.2 3.4-10.8 RBC 5.18 4.14-5.80 Hemoglobin 17.3 12.6-17.7 Hematocrit 49.9 37.5-51.0 MCV 96 79-97 MCH 33.4 26.6-33.0 MCHC 34.7 31.5-35.7 RDW 12.8 12.3-15.4 Platelets 176 150-379 Neutrophils 54 Lymphs 37 Monocytes 7 Eos 2 Basos 0 Neutrophils (Absolute) 4.9 1.4-7.0 Lymphs (Absolute) 3.4 0.7-3.1 Monocytes(Absolute) 0.6 0.1-0.9 Eos (Absolute) 0.2 0.0-0.4 Baso (Absolute) 0.0 0.0-0.2 Immature Granulocytes 0 Immature Grans (Abs) 0.0 0.0-0.1 CMP 2016-12-21 Glucose, Serum 97 65-99 BUN 10 6-24 Creatinine, Serum 0.71 0.76-1.27 eGFR If NonAfricn Am 108 >59 eGFR If Africn Am 125 >59 BUN/Creatinine Ratio 14 9-20 Sodium, Serum 137 134-144 Potassium, Serum 4.2 3.5-5.2 Chloride, Serum 101 96-106 Carbon Dioxide, Total 20 18-29 Calcium, Serum 9.4 8.7-10.2 Protein, Total, Serum 8.1 6.0-8.5 Albumin, Serum 4.2 3.5-5.5 Globulin, Total 3.9 1.5-4.5 A/G Ratio 1.1 1.2-2.2 Bilirubin, Total 0.6 0.0-1.2 Alkaline Phosphatase, S 56 39-117 AST (SGOT) 33 0-40 ALT (SGPT) 42 0-44 PROCEDURES Procedure Date Ordered Result Body Site MEASURE BLOOD OXYGEN LEVEL December 21, 2016 HEP B (ADULT) December 21, 2016 VENIPUNCT, ROUTINE* December 21, 2016 COMPLETE CBC W/AUTO DIFF WBC December 21, 2016 SINGLE IMMUNIZATION ADMIN December 21, 2016 HEP C RNA QUANT ([facility] ONLY) December 21, 2016 COMPREHEN METABOLIC PANEL December 21, 2016 IMMUNIZATIONS Vaccine Route Administration Date Status HEP B (ADULT) IM Intramuscular December 21, 2016 Administered MEDICAL (GENERAL) HISTORY Type Description Date Medical History Hearing loss Medical History Acid reflux Medical History Inguinal hernia at -1965 Medical History Depression Medical History HTN Medical History ANXIETY Surgical History Left ear surgery Surgical History Appendectomy Surgical History Left knee ACL/MCL repair Surgical History HERNIA SURGERY
--- OUTSIDE RECORDS SUMMARY | 2019-10-01 05:02 | XMS REPORT ---
Author Author Mike PULIDO Organization [employer] Address Unknown Phone Unavailable Care Team Providers Care Cargo Broker Name Role Phone CYRUS PULIDO CP Unavailable Allergies No Known Allergies Problems Problem Type Condition Code Onset Dates Condition Statu s Problem Obesity E66.9 Active Problem Essential hypertension I10 Activ e Problem Hyperlipidemia, unspecified hyperlipidemia type E78.5 Active Problem Anxiety disorder, unspecified F41.9 Active Assessment Abnormal LFTs R79.89 Active Problem Allergic rhinitis J30.9 Active Problem Hypothyroidism, unspecified E03.9 Active Medications No Known Medications Results No Known Results Summary Purpose [employer] Submission
--- OUTSIDE RECORDS SUMMARY | 2019-10-01 05:02 | XMS REPORT ---
Author Author Mike HWANG Organization [facility] Address [address] [place] [address] Care Team Providers Care Assistant Store Manager Name Role Phone ALEN HWANG Unavailable PROBLEMS Type Condition ICD9-CM Code [id number] Code Onset Dates Condition S tatus SNOMED Code Problem Hypothyroidism, unspecified E03.9 Ac tive 21072392 Problem Anxiety disorder, unspecified F41.9 Active 118628109 Problem Reactive depression F32.9 Active 08975452 Problem Chronic hepatitis C without hepatic coma B18.2 Active 107927928 Problem Essential hypertension I10 Active 10463159 Problem Obesity E66.9 Active 368816791 Problem Hyperlipidemia, unspecified hyperlipidemia type E7 8.5 Active 89770320 Problem Allergic rhinitis J30.9 Active 61 128967 ALLERGIES No Information SOCIAL HISTORY Never Assessed PLAN OF CARE VITAL SIGNS MEDICATIONS Unknown Medications RESULTS No Results PROCEDURES No Known procedures IMMUNIZATIONS No Known Immunizations MEDICAL (GENERAL) HISTORY Type Description Date Medical History Hearing loss Medical History Acid reflux Medical History Inguinal hernia at -1964 Medical History Depression Medical History HTN Medical History ANXIETY Surgical History Left ear surgery Surgical History Appendectomy Surgical History Left knee ACL/MCL repair Surgical History HERNIA SURGERY
--- OUTSIDE RECORDS SUMMARY | 2019-10-01 05:02 | XMS REPORT ---
Author Author Mkie PULIDO Organization [facility] Address [address] [place] [address] Care Team Providers Care Hospital Internship Name Role Phone CYRUS PULIDO Unavailable PROBLEMS Type Condition ICD9-CM Code CNG37-UN Code Onset Dates Condition S tatus SNOMED Code Problem Hypothyroidism, unspecified E03.9 Ac tive 88777461 Problem Anxiety disorder, unspecified F41.9 Active 645740585 Problem Reactive depression F32.9 Active 22085576 Problem Chronic hepatitis C without hepatic coma B18.2 Active 478784775 Problem Essential hypertension I10 Active 10981065 Problem Obesity E66.9 Active 470392077 Problem Hyperlipidemia, unspecified hyperlipidemia type E7 8.5 Active 10030240 Problem Allergic rhinitis J30.9 Active 61 861775 ALLERGIES No Known Allergies ENCOUNTERS Encounter Location Date Diagnosis [place] [id number] [facility] [id number] [address] [place] [phone] Oct, Essential hypertension I10 ; Hypothyroidism, unspecified E03.9 and Dysfunction of left eustachian tube H69.82 [facility] [address] [facility] [id number] [address] [place] [phone] Sep, Chronic hepatitis C without hepatic coma B18.2 and Hypothyroidism, unspecified E03.9 [facility] [address] [facility] [id number] [address] [place] [phone] Sep, Hypothyroidism, unspecified E03.9 [facility] [address] [facility] [id number] [address] [place] [address] May, Chronic hepatitis C without hepatic coma B18.2 [facility] [address] [facility] [id number] [address] [place] [phone] May, [facility] [address] [facility] [id number] [address] [place] [phone] Apr, Hypothyroidism, unspecified E03.9 and Chronic hepatitis C without hepatic coma B18.2 [facility] [address] [facility] [id number] [address] [place] [phone] Apr, Chronic hepatitis C without hepatic coma B18.2 [facility] [address] [facility] [id number] [address] [place] [phone] Mar, Reactive depression F32.9 an d Hypothyroidism, unspecified E03.9 [facility] [address] [facility] [id number] [address] [place] [phone] Feb, Reactive depression F32.9 an d Anxiety disorder, unspecified F41.9 [facility] [address] [facility] [id number] [address] [place] [phone] Feb, Chronic hepatitis C without hepatic coma B18.2 [facility] [address] [facility] [id number] [address] [place] [phone] Jan, Chronic hepatitis C without hepatic coma B18.2 [facility] [address] [facility] [id number] [address] [place] [phone] November, Encounter for immunization Z 23 and Chronic hepatitis C without hepatic coma B18.2 [facility] [address] [facility] [id number] [address] [place] [phone] November, [facility] [address] [facility] [id number] [address] [place] [phone] Oct, Chronic hepatitis C without hepatic coma B18.2 [facility] [address] [facility] [id number] [address] [place] [phone] Sep, [facility] [address] [facility] [id number] [address] [place] [phone] Aug, Gastroenteritis K52.9 [facility] [address] [facility] [id number] [address] [place] [phone] Aug, [facility] [address] [facility] [id number] [address] [place] [phone] Aug, [facility] [address] [facility] [id number] [address] [place] [phone] Aug, [facility] [address] [facility] [id number] [address] [place] [phone] Aug, [facility] [address] [facility] [id number] [address] [place] [phone] Jul, Encounter for immunization Z 23 ; Sinus tachycardia R00.0 and Chronic hepatitis C without hepatic coma B18.2 [facility] [address] [facility] [id number] [address] [place] [phone] Jun, Chronic hepatitis C without hepatic coma B18.2 [facility] [address] [facility] [id number] [address] [place] [phone] Jun, Chronic hepatitis C without hepatic coma B18.2 [facility] [address] [place] [id number] [address] [place] [phone] May, Anxiety disorder, unspecifie d F41.9 [facility] [address] [place] [id number] [address] [place] [phone] May, Bronchitis J40 and Eustachia n tube dysfunction, bilateral H69.83 [facility] [address] [facility] [id number] [address] [place] [phone] May, Chronic hepatitis C without hepatic coma B18.2 [facility] [address] [facility] [id number] [address] [place] [phone] May, Chronic hepatitis C without hepatic coma B18.2 [facility] [address] [facility] [id number] [address] [place] [phone] May, [facility] [address] [place] [id number] [address] [place] [phone] Apr, Abnormal LFTs R79.89 [facility] [address] [facility] [id number] [address] [place] [phone] Apr, Abnormal LFTs R79.89 [place] [address] [facility] [id number] [address] [place] [phone] Apr, Obesity E66.9 ; Hypothyroidi sm, unspecified E03.9 and Hyperlipidemia, unspecified hyperlipidemia type E78.5 [place] [address] [facility] [id number] [address] [place] [phone] Apr, Obesity E66.9 ; Hypothyroidi sm, unspecified E03.9 and Hyperlipidemia, unspecified hyperlipidemia type E78.5 [place] [address] [facility] [id number] [address] [place] [phone] Apr, Visit for TB skin test Z11.1 [place] [address] [place] [id number] [place] [address] November, Obesity E66.9 [place] [address] [place] [id number] [place] [phone] Oct, Obesity E66.9 [place] [address] [address] Oct, Essential hypertension I10 ; Hypothyroidism, unspecified E03.9 and Obesity E66.9 [place] [address] [place] [id number] [address] [place] [phone] Jun, [place] [address] [place] [id number] [place] [address] May, Essential hypertension I10 ; Allergic rhinitis J30.9 ; Hypothyroidism, unspecified E03.9 and Otitis media, unspecified, bilateral H66.93 [place] [address] [place] [id number] [address] [place] [phone] May, Unspecified hypothyroidism 2 44.9 and Screening for hypertension V81.1 [place] [address] [place] [id number] [address] [place] [phone] May, [place] [address] [place] [id number] [place] [address] Apr, Hypothyroidism, unspecified E03.9 and Anxiety disorder, unspecified F41.9 [facility] [address] [place] [id number] [address] [place] [phone] Feb, Essential hypertension, humza gn 401.1 [facility] [address] [place] [id number] [address] [place] [phone] Feb, Unspecified hypothyroidism 2 44.9 and Screening for hypertension V81.1 [facility] [address] [place] [id number] [address] [place] [phone] Feb, Essential hypertension, humza gn 401.1 ; Anxiety state, unspecified 300.00 and Rash of groin 782.1 [facility] [address] [place] [id number] [address] [place] [phone] Feb, [facility] [address] [place] [id number] [place] [address] Dec, Essential hypertension, humza gn 401.1 ; Anxiety state, unspecified 300.00 and Rash of groin 782.1 [facility] [address] [place] [id number] [address] [place] [phone] November, [facility] [address] [place] [id number] [address] [place] [phone] Oct, [facility] [address] [place] [id number] [address] [place] [phone] Oct, [facility] [address] [place] [id number] [address] [place] [phone] Sep, [facility] [address] [place] [id number] [address] [place] [phone] Sep, [facility] [address] [place] [id number] [address] [place] [phone] Aug, [facility] [address] [place] [id number] [address] [place] [phone] Aug, [facility] [address] [place] [id number] [address] [place] [phone] Jul, [facility] [address] [id number] [address] [place] [address], [place] [address] Jul, [facility] [address] [id number] [address] [place] [address], [place] [address] Jun, [facility] [address] [id number] [address] [place] [address], [place] [address] Jun, [facility] [address] [id number] [address] [place] [address], [place] [address] Jun, [facility] [address] [id number] [address] [place] [address], [place] [address] Jun, [facility] [address] [id number] [address] [place] [address], [place] [address] Jun, [facility] [address] [id number] [address] [place] [address], [place] [address] Jun, [facility] [address] [id number] [address] [place] [address], [place] [address] Jun, [facility] [address] [id number] [address] [place] [address], [place] [address] Jun, [facility] [address] [id number] [address] [place] [address], [place] [address] May, [facility] [address] [id number] [address] [place] [address], [place] [address] May, [facility] [address] [id number] [address] [place] [address], [place] [address] Feb, [facility] [address] [id number] [address] [place] [address], [place] [address] Feb, [facility] [address] [id number] [address] [place] [address], [place] [address] Feb, [facility] [address] [id number] [address] [place] [address], [place] [address] Feb, [facility] [address] [id number] [facility] [place] [address] Feb, [facility] [address] [id number] [address] [place] [address], [place] [address] Feb, [facility] [address] [id number] [address] [place] [address], [place] [address] Feb, [facility] [address] [id number] [address] [place] [address], [place] [address] Feb, [facility] [address] [id number] [address] [place] [address], [place] [address] Feb, [facility] [address] [id number] [address] [place] [address], [place] [address] Feb, [facility] [address] [id number] [address] [place] [address], [place] [address] Feb, [facility] [address] [id number] [address] [place] [address], [place] [address] Feb, [facility] [address] [id number] [address] [place] [address], [place] [address] Jan, [facility] [address] [id number] [address] [place] [address], [place] [address] Jan, [facility] [address] [id number] [address] [place] [address], [place] [address] Jan, [facility] [address] [id number] [address] [place] [address], [place] [address] Jan, [facility] [address] [id number] [address] [place] [address], [place] [address] Dec, [facility] [address] [id number] [address] [place] [address], [place] [address] Dec, [facility] [address] [id number] [address] [place] [address], [place] [address] Oct, [facility] [address] [id number] [address] [place] [address], [place] [address] Oct, [facility] [address] [id number] [address] [place] [address], [place] [address] Oct, [facility] [address] [id number] [address] [place] [address], [place] [address] Oct, [facility] [address] [id number] [address] [place] [address], [place] [address] Oct, [facility] [address] [id number] [address] [place] [address], [place] [address] Oct, [facility] [address] [id number] [address] [place] [address], [place] [address] Oct, [facility] [address] [id number] [address] [place] [address], [place] [address] Aug, [facility] [address] [id number] [address] [place] [address], [place] [address] Aug, [facility] [address] [id number] [address] [place] [address], [place] [address] Jul, [facility] [address] [id number] [address] [place] [address], [place] [address] Jul, [facility] [address] [id number] [address] [place] [address], [place] [address] Jul, [facility] [address] [id number] [address] [place] [address], [place] [address] Jul, [facility] [address] [id number] [address] [place] [address], [place] [address] Jun, [facility] [address] [id number] [address] [place] [address], [place] [address] Jun, [facility] [address] [id number] [address] [place] [address], [place] [address] May, [facility] [address] [id number] [address] [place] [address], [place] [address] May, [facility] [address] [id number] [address] [place] [address] May, [facility] [address] [facility] [id number] [address] [place] [address] Oct, [facility] [address] [facility] [id number] [address] [place] [phone] Oct, IMMUNIZATIONS No Known Immunizations SOCIAL HISTORY Never Assessed REASON FOR VISIT anxiety f/u- Rachana VENEGAS PLAN OF CARE Activity Details Follow Up 3 Months Reason: VITAL SIGNS Height 70 in 2017-04-21 Weight 308.4 lbs 2017-04-21 Temperature 98.2 degrees Fahrenheit 2017-04-21 Heart Rate 78 bpm 2017-04-21 Respiratory Rate 22 2017-04-21 BMI 44.25 kg/m2 2017-04-21 Blood pressure systolic 124 mmHg 2017-04-21 Blood pressure diastolic 88 mmHg 2017-04-21 MEDICATIONS Medication Instructions Dosage Frequency Start Date End Date Duration S tatus Zoloft 50 mg Orally Once a day 1 tablet 24h Feb, 30 day(s) Active Ativan 1 MG Orally twice a day, prn anxiety 1 Feb, 0 days Active Lisinopril 10 MG Orally Once a day 1 tablet 24h 30 Active Levothyroxine Sodium 100 MCG TAKE ONE TA BLET BY MOUTH ONCE DAILY (MUST HAVE APPOINTMENT PRIOR TO NEXT REFILL!!!) 30 Active Aspirin 81 mg take 1 [...]
--- OUTSIDE RECORDS SUMMARY | 2019-10-01 05:02 | XMS REPORT ---
Author Author Mike PULIDO Organization [employer] Address Unknown Phone Unavailable Care Team Providers Care Tape Editor Name Role Phone CYRUS PULIDO CP Unavailable Allergies, Adverse Reactions, Alerts Substance Reaction Event Type N.K.D.A. Info Not Available Non Drug Allergy Problems Problem Type Condition Code Onset Dates Condition Statu s Assessment Obesity E66.9 Active Problem Essential hypertension I10 Activ e Problem Allergic rhinitis J30.9 Active Problem Obesity E66.9 Active Assessment Essential hypertension I10 Activ e Assessment Hypothyroidism, unspecified E03.9 Active Problem Hypothyroidism, unspecified E03.9 Active Problem Anxiety disorder, unspecified F41.9 Active Medications Medication Code System Code Instructions Start Date End Date Status Dosage Lisinopril [facility] [address]-13 10 MG Orally Once a day [address] [facility] [place] [address]23 81 mg November 16, 2011 take 1 tablet (81 mg) by oral route once daily Zyrtec Allergy [facility] [place] [address]-42 10 MG Orally Once a day 1 tablet as needed HydrOXYzine HCl [facility] [place] [address]-20 25 MG TA KE ONE TABLET BY MOUTH TWICE DAILY Levothyroxine Sodium [facility] [place] [address]-75 100 MCG Ora lly Once a day. Must have appt prior to next refill May 14, 2015 1 Procedures Procedure Coding System Code Date Office Visit, Est Pt., Level 3 CPT-4 70331 [facility] 2015 Vital Signs Date/Time: November 11, 2015 Temperature 98.0 F Weight 292 lbs Height 70 in BMI 41.89 Index Blood Pressure Diastolic 72 mmHg Blood Pressure Systolic 132 mmHg Cardiac Monitoring Heart Rate 70 bpm Results No Known Results Summary Purpose [employer] Submission
--- OUTSIDE RECORDS SUMMARY | 2019-10-01 05:02 | XMS REPORT ---
Author Author Mike HWANG Organization [facility] Address [address] [place] [address] Care Team Providers Care Climate Change Risk Assessor Name Role Phone ALEN HWANG Unavailable PROBLEMS Type Condition ICD9-CM Code [id number] Code Onset Dates Condition S tatus SNOMED Code Problem Hypothyroidism, unspecified E03.9 Ac tive 99406914 Problem Anxiety disorder, unspecified F41.9 Active 003469675 Problem Reactive depression F32.9 Active 72599966 Problem Chronic hepatitis C without hepatic coma B18.2 Active 837827482 Problem Essential hypertension I10 Active 50867728 Problem Obesity E66.9 Active 483620563 Problem Hyperlipidemia, unspecified hyperlipidemia type E7 8.5 Active 74750938 Problem Allergic rhinitis J30.9 Active 61 138055 ALLERGIES No Known Allergies ENCOUNTERS Encounter Location Date Diagnosis [place] [id number] [place] [id number] [place] [address] Oct, [place] [address] [place] [id number] [place] [address] Sep, Chronic hepatitis C without hepatic coma B18.2 and Hypothyroidism, unspecified E03.9 [facility] [address] [place] [id number] [place] [address] Sep, Hypothyroidism, unspecified E03.9 [facility] [address] [facility] [id number] [address] [place] [address] May, Chronic hepatitis C without hepatic coma B18.2 [facility] [address] [place] [id number] [place] [address] May, [facility] [address] [place] [id number] [place] [address] Apr, Hypothyroidism, unspecified E03.9 and Chronic hepatitis C without hepatic coma B18.2 [facility] [address] [facility] [id number] [address] [place] [address] Apr, Chronic hepatitis C without hepatic coma B18.2 [facility] [address] [facility] [id number] [address] [place] [address] Mar, Reactive depression F32.9 an d Hypothyroidism, unspecified E03.9 [facility] [address] [facility] [id number] [address] [place] [address] Feb, Reactive depression F32.9 an d Anxiety disorder, unspecified F41.9 [facility] [address] [facility] [id number] [address] [place] [address] Feb, Chronic hepatitis C without hepatic coma B18.2 [facility] [address] [place] [id number] [place] [address] Jan, Chronic hepatitis C without hepatic coma B18.2 [facility] [address] [place] [id number] [place] [address] November, Encounter for immunization Z 23 and Chronic hepatitis C without hepatic coma B18.2 [facility] [address] [facility] [id number] [address] [place] [address] November, [facility] [address] [facility] [id number] [address] [place] [address] Oct, Chronic hepatitis C without hepatic coma B18.2 [facility] [address] [facility] [id number] [address] [place] [address] Sep, [facility] [address] [facility] [id number] [address] [place] [address] Aug, Gastroenteritis K52.9 [facility] [address] [facility] [id number] [address] [place] [address] Aug, [facility] [address] [facility] [id number] [address] [place] [address] Aug, [facility] [address] [place] [id number] [place] [address] 06 Aug, 2016 [facility] [address] [place] [id number] [place] [address] Aug, [facility] [address] [place] [id number] [place] [address] Jul, Encounter for immunization Z 23 ; Sinus tachycardia R00.0 and Chronic hepatitis C without hepatic coma B18.2 [facility] [address] [place] [id number] [place] [address] Jun, Chronic hepatitis C without hepatic coma B18.2 [facility] [address] [place] [id number] [place] [address] Jun, Chronic hepatitis C without hepatic coma B18.2 [facility] [address] [place] [id number] [place] [address] May, Anxiety disorder, unspecifie d F41.9 [facility] [address] [place] [id number] [place] [address] May, Bronchitis J40 and Eustachia n tube dysfunction, bilateral H69.83 [facility] [address] [place] [id number] [place] [address] May, Chronic hepatitis C without hepatic coma B18.2 [facility] [address] [place] [id number] [place] [address] May, Chronic hepatitis C without hepatic coma B18.2 [facility] [address] [place] [id number] [place] [address] May, [facility] [address] [place] [id number] [place] [address] Apr, Abnormal LFTs R79.89 [facility] [address] [place] [id number] [place] [address] 14 Apr, 2016 Abnormal LFTs R79.89 [facility] [address] [place] [id number] [place] [address] Apr, Obesity E66.9 ; Hypothyroidi sm, unspecified E03.9 and Hyperlipidemia, unspecified hyperlipidemia type E78.5 [place] [address] [address] 10 Apr, 2016 Obesity E66.9 ; Hypothyroidi sm, unspecified E03.9 and Hyperlipidemia, unspecified hyperlipidemia type E78.5 [place] [address] [address] Apr, Visit for TB skin test Z11.1 [place] [address] [address] November, Obesity E66.9 [place] [address] [address] Oct, Obesity E66.9 [place] [address] [address] Oct, Essential hypertension I10 ; Hypothyroidism, unspecified E03.9 and Obesity E66.9 [place] [address] [address] Jun, [place] [address] [address] May, Essential hypertension I10 ; Allergic rhinitis J30.9 ; Hypothyroidism, unspecified E03.9 and Otitis media, unspecified, bilateral H66.93 [place] [address] [address] May, Unspecified hypothyroidism 2 44.9 and Screening for hypertension V81.1 [place] [address] [address] May, [place] [address] [address] Apr, Hypothyroidism, unspecified E03.9 and Anxiety disorder, unspecified F41.9 [place] [address] [place] [address] [place] [address] Feb, Essential hypertension, humza gn 401.1 [facility] [address] [facility] [id number] [address] [place] [address] Feb, Unspecified hypothyroidism 2 44.9 and Screening for hypertension V81.1 [facility] [address] [facility] [id number] [address] [place] [address] Feb, Essential hypertension, humza gn 401.1 ; Anxiety state, unspecified 300.00 and Rash of groin 782.1 [facility] [address] [id number] [address] [place] [address] Feb, [facility] [address] [facility] [id number] [address] [place] [address] Dec, Essential hypertension, humza gn 401.1 ; Anxiety state, unspecified 300.00 and Rash of groin 782.1 [facility] [address] [facility] [id number] [address] [place] [address] November, [facility] [address] [id number] [address] [place] [address] Oct, [facility] [address] [facility] [id number] [address] [place] [address] Oct, [facility] [address] [facility] [id number] [address] [place] [address] Sep, [facility] [address] [facility] [id number] [address] [place] [address] Sep, [facility] [address] [facility] [id number] [address] [place] [address] Aug, [facility] [address] [facility] [id number] [address] [place] [address] Aug, [facility] [address] [facility] [id number] [address] [place] [address] Jul, [facility] [address] [id number] [address] [place] [address] [place] [address] Jul, [facility] [address] [id number] [address] [place] [address], [place] [address] Jun, [facility] [address] [id number] [address] [place] [address], [place] [address] Jun, [facility] [address] [id number] [address] [place] [address], [place] [address] Jun, [facility] [place] [facility] [address] [id number] [address] [place] [address], [place] [address] Jun, [facility] [address] [id number] [address] [place] [address], [place] [address] Jun, [facility] [address] [id number] [address] [place] [address], [place] [address] Jun, [facility] [address] [id number] [address] [place] [address], [place] [address] Jun, [facility] [address] [id number] [address] [place] [address], [place] [address] Jun, [facility] [address] [id number] [address] [place] [address], [place] [address] May, [facility] [address] [id number] [address] [place] [address], [place] [address] May, [facility] [address] [id number] [address] [place] [address], [place] [address] Feb, [facility] [place] [facility] [address] [id number] [address] [place] [address], [place] [address] Feb, [facility] [place] [facility] [address] [id number] [address] [place] [address], [place] [address] Feb, [facility] [place] [facility] [address] [id number] [address] [place] [address], [place] [address] Feb, [facility] [place] [facility] [address] [id number] [address] [place] [address], [place] [address] Feb, [facility] [place] [facility] [address] [id number] [facility] [address] Feb, [facility] [place] [facility] [address] [id number] [facility] [address] Feb, [facility] [place] [facility] [address] [id number] [address] [place] [address], [place] [address] Feb, [facility] [place] [facility] [address] [id number] [address] [place] [address], [place] [address] Feb, [facility] [place] [facility] [address] [id number] [address] [place] [address], [place] [address] Feb, [facility] [place] [facility] [address] [id number] [address] [place] [address], [place] [address] Feb, [facility] [place] [facility] [address] [id number] [address] [place] [address], [place] [address] Feb, [facility] [place] [facility] [address] [id number] [address] [place] [address], [place] [address] Jan, [facility] [place] [facility] [address] [id number] [address] [place] [address], [place] [address] Jan, [facility] [place] [facility] [address] [id number] [address] [place] [address], [place] [address] Jan, [facility] [place] [facility] [address] [id number] [address] [place] [address], [place] [address] Jan, [facility] [place] [facility] [address] [id number] [address] [place] [address], [place] [address] Dec, [facility] [place] [facility] [address] [id number] [address] [place] [address], [place] [address] Dec, [facility] [place] [facility] [address] [id number] [address] [place] [address], [place] [address] Oct, [facility] [place] [facility] [address] [id number] [address] [place] [address], [place] [address] Oct, [facility] [place] [facility] [address] [id number] [address] [place] [address], [place] [address] Oct, [facility] [address] [id number] [address] [place] [address], [place] [address] Oct, [facility] [address] [id number] [address] [place] [address], [place] [address] Oct, [facility] [address] [id number] [address] [place] [address], [place] [address] Oct, [facility] [address] [id number] [address] [place] [address], [place] [address] Oct, [facility] [address] [id number] [address] [place] [address], [place] [address] Aug, [facility] [address] [id number] [address] [place] [address], [place] [address] Aug, [facility] [address] [id number] [address] [place] [address], [place] [address] Jul, [facility] [address] [id number] [address] [place] [address], [place] [address] Jul, [facility] [address] [id number] [address] [place] [address], [place] [address] Jul, [facility] [address] [id number] [address] [place] [address], [place] [address] Jul, [facility] [address] [id number] [address] [place] [address], [place] [address] Jun, [facility] [address] [id number] [address] [place] [address], [place] [address] Jun, [facility] [address] [id number] [address] [place] [address], [place] [address] May, [facility] [address] [id number] [address] [place] [address], [place] [address] May, [facility] [address] [id number] [address] [place] [address], [place] [address] May, [facility] [address] [id number] [address] [place] [address] Oct, [facility] [address] [facility] [id number] [address] [place] [address] Oct, IMMUNIZATIONS No Known Immunizations SOCIAL HISTORY Never Assessed REASON FOR VISIT Hep C tx complete---[place],[facility] PLAN OF CARE Activity Details Follow Up with PCP and for labs as we discussed Reason: VITAL SIGNS Height 70 in 2017-02-24 Weight 327.8 lbs 2017-02-24 Temperature 97.8 degrees Fahrenheit 2017-02-24 Heart Rate 90 bpm 2017-02-24 Respiratory Rate 22 2017-02-24 BMI 47.03 kg/m2 2017-02-24 Blood pressure systolic 142 mmHg 2017-02-24 Blood pressure diastolic 93 mmHg 2017-02-24 MEDICATIONS Medication Instructions Dosage Frequency Start Date End Date Duration S tatus Levothyroxine Sodium 100 MCG TAKE ONE TA BLET BY MOUTH ONCE DAILY (MUST HAVE APPOINTMENT PRIOR TO NEXT REFILL!!!) 30 Active Aspirin 81 mg take 1 tablet (81 mg) by oral route once daily Oct, Active HydrOXYzine HCl 25 MG TAKE ONE TABLET BY MOUTH TWICE DAILY 30 Active Lisinopril 10 MG Orally Once a day 1 tablet 24h 30 Active RESULTS No Results PROCEDURES No Known [...]
--- OUTSIDE RECORDS SUMMARY | 2019-10-01 05:02 | XMS REPORT ---
Author Author Mike PULIDO Organization [employer] Address Unknown Phone Unavailable Care Team Providers Care Grease And Tallow Pumper Name Role Phone CYRUS PULIDO CP Unavailable Allergies No Known Allergies Problems Problem Type Condition Code Onset Dates Condition Statu s Problem Obesity E66.9 Active Problem Essential hypertension I10 Activ e Problem Hyperlipidemia, unspecified hyperlipidemia type E78.5 Active Problem Anxiety disorder, unspecified F41.9 Active Assessment Visit for TB skin test Z11.1 Activ e Problem Allergic rhinitis J30.9 Active Problem Hypothyroidism, unspecified E03.9 Active Medications No Known Medications Procedures Procedure Coding System Code Date TB INTRADERMAL TEST CPT-4 38204 Apr 29, 2016 Results Name Result Date Reference Range Unit Abnormali ty Flag TB INTRADERMAL ----INDURATION (mm) 0mm 20160501 0 - 15 mm ----Time Read 1435 [id number] ----Date read 05/01/1620160501 ----Injected by isi Veras [id number] ----Exp. date 20160501 ----Read by Ebony [id number] ----Date injected 04/29/201620160501 ----RESULTS (Pos/Neg) Negative 20160501 ----Time Injected 14:35 20160501 ----Site left arm 20160501 ----Lot # [id number] Summary Purpose [employer] Submission
--- OUTSIDE RECORDS SUMMARY | 2019-10-01 05:02 | XMS REPORT ---
Author Author Mike HWANG Organization [facility] Address [address] [place] [address] Care Team Providers Care Senior Java Developer Name Role Phone ALEN HWANG Unavailable PROBLEMS Type Condition ICD9-CM Code CCK84-PU Code Onset Dates Condition S tatus SNOMED Code Problem Hypothyroidism, unspecified E03.9 Ac tive 56031052 Problem Anxiety disorder, unspecified F41.9 Active 501484418 Problem Reactive depression F32.9 Active 21072525 Problem Chronic hepatitis C without hepatic coma B18.2 Active 858892597 Problem Essential hypertension I10 Active 94928123 Problem Obesity E66.9 Active 725292274 Problem Hyperlipidemia, unspecified hyperlipidemia type E7 8.5 Active 59804310 Problem Allergic rhinitis J30.9 Active 61 474567 ALLERGIES Unknown Allergies SOCIAL HISTORY No smoking Hx information available PLAN OF CARE VITAL SIGNS MEDICATIONS Unknown Medications RESULTS No Results PROCEDURES No Known procedures IMMUNIZATIONS No Known Immunizations
--- OUTSIDE RECORDS SUMMARY | 2019-10-01 05:02 | XMS REPORT ---
Author Author Mike PULIDO Organization [facility] Address [address] [place] [address] Care Team Providers Care Equipment Associate Name Role Phone CYRUS PULIDO Unavailable PROBLEMS Type Condition ICD9-CM Code VFM36-EV Code Onset Dates Condition S tatus SNOMED Code Problem Anxiety disorder, unspecified F41.9 Active 679855797 Assessment Chronic hepatitis C without hepatic coma B18.2 Jun, Active 138032130 Problem Chronic hepatitis C without hepatic coma B18.2 Active 975866059 Problem Hyperlipidemia, unspecified hyperlipidemia type E7 8.5 Active 17154546 Problem Allergic rhinitis J30.9 Active 61 099442 Problem Hypothyroidism, unspecified E03.9 Ac tive 96668377 Problem Obesity E66.9 Active 399685188 Problem Essential hypertension I10 Active 48925527 ALLERGIES Unknown Allergies SOCIAL HISTORY No smoking Hx information available PLAN OF CARE VITAL SIGNS MEDICATIONS Unknown Medications RESULTS No Results PROCEDURES No Known procedures IMMUNIZATIONS No Known Immunizations
--- OUTSIDE RECORDS SUMMARY | 2019-10-01 05:02 | XMS REPORT ---
Author Author Mike PULIDO Organization [employer] Address Unknown Phone Unavailable Care Team Providers Care Advanced Analytics Associate Name Role Phone CYRUS PULIDO CP Unavailable [...] Active Problem Hypothyroidism, unspecified E03.9 Active Medications Medication Code System Code Instructions Start Date End Date Status Dosage Lisinopril [facility] [address]-30 10 MG Orally Once a day 1 tablet Zyrtec Allergy [facility] [address]-11 10 MG Orally Once a day 1 tablet as needed Aspirin [facility] [address] 81 mg November 16, 2011 take 1 tablet (81 mg) by oral route once daily Levothyroxine Sodium [facility] [address]-90 100 MCG TAKE ONE TABLET BY MOUTH ONCE DAILY (MUST HAVE APPOINTMENT PRIOR TO NEXT REFILL!!!) Procedures Procedure Coding System Code Date Office Visit, Est Pt., Level 4 CPT-[address] 2015 Vital Signs Date/Time: May 03, 2016 Cardiac Monitoring Heart Rate 96 bpm Weight 290.2 lbs Height 70 in BMI 41.63 Index Blood Pressure Diastolic 84 mmHg Blood Pressure Systolic 140 mmHg Results No Known Results Summary Purpose [employer] Submission
--- OUTSIDE RECORDS SUMMARY | 2019-10-01 05:02 | XMS REPORT ---
Author Author Mike PULIDO Organization [employer] Address Unknown Phone Unavailable Care Team Providers Care Concession Worker Name Role Phone CYRUS PULIDO CP Unavailable Allergies No Known Allergies Problems Problem Type Condition Code Onset Dates Condition Statu s Assessment Chronic hepatitis C without hepatic coma B18.2 Active Problem Hyperlipidemia, unspecified hyperlipidemia type E78.5 Active Problem Obesity E66.9 Active Problem Chronic hepatitis C without hepatic coma B18.2 Active Problem Hypothyroidism, unspecified E03.9 Active Problem Anxiety disorder, unspecified F41.9 Active Problem Essential hypertension I10 Activ e Problem Allergic rhinitis J30.9 Active Medications No Known Medications Results No Known Results Summary Purpose [employer] Submission
--- OUTSIDE RECORDS SUMMARY | 2019-10-01 05:02 | XMS REPORT ---
Author Author Mike PULIDO Organization [employer] Address Unknown Phone Unavailable Care Team Providers Care Chief Of Police Name Role Phone CYRUS PULIDO CP Unavailable [...] Medications Procedures Procedure Coding System Code Date No Charge CPT-4 74305 May 12, 2016 VENIPUNCT, ROUTINE* CPT-4 57847 May 12, 2016 Results Name Result Date Reference Range Unit Abnormali ty Flag ROUTINE VENIPUNCTURE Summary Purpose [employer] Submission
--- OUTSIDE RECORDS SUMMARY | 2019-10-01 05:02 | XMS REPORT ---
Author Author Mike PULIDO Organization [employer] Address Unknown Phone Unavailable Care Team Providers Care Education Coordinator Name Role Phone CYRUS PULIDO CP Unavailable Allergies No Known Allergies Problems Problem Type Condition Code Onset Dates Condition Statu s Problem Essential hypertension I10 Activ e Problem Allergic rhinitis J30.9 Active Problem Obesity E66.9 Active Assessment Obesity E66.9 Active Problem Hypothyroidism, unspecified E03.9 Active Problem Anxiety disorder, unspecified F41.9 Active Medications Medication Code System Code Instructions Start Date End Date Status Dosage Khalif [facility] [address]-60 8-90 MG Orally Twice a day November 19, 2015 2 tablets Results No Known Results Summary Purpose [employer] Submission
--- OUTSIDE RECORDS SUMMARY | 2019-10-01 05:02 | XMS REPORT ---
Author Author Mike PULIDO [facility] [employer] Address Unknown Phone Unavailable Care Team Providers Care Grid Operator Name Role Phone CYRUS PULIDO CP Unavailable [...] rhinitis J30.9 Active Medications No Known Medications Procedures Procedure Coding System Code Date COMPLETE CBC W/AUTO DIFF WBC CPT-4 75365 Jun 08, 2016 HEP C RNA QUANT ([facility]IANCE ONLY) CPT-4 30645 Jun 08, 2016 HIV-1 AG W/HIV-1 & HIV-2 AB CPT-4 11479 Jun 08, 2016 VENIPUNCT, ROUTINE* CPT-4 87152 Jun 08, 2016 HEP C GENOTYPE ([facility] ONLY) CPT-4 89695 N 2015 Results Name Result Date Reference Range Unit Abnormali ty Flag CBC ----Lymphs 30 86305459 % ----Neutrophils 58 52111748 % ----Baso (Absolute) 0.0 36087070 0.0-0.2 x10E3/uL ----Hemoglobin 16.6 87962941 12.6-17.7 g/dL ----Eos (Absolute) 0.3 82590879 0.0-0.4 x10E3/uL ----Hematocrit 48.5 20160608 37.5-51.0 % ----Monocytes(Absolute) 0.9 28295633 0.1-0.9 x10E3/uL ----MCV 96 91241915 79-97 fL ----Lymphs (Absolute) 2.9 46031906 0.7-3.1 x10E3/uL ----MCH 32.8 90151988 26.6-33.0 pg ----Neutrophils (Absolute) 5.5 23493364 1.4-7.0 x10E3/uL ----MCHC 34.2 79381399 31.5-35.7 g/dL ----Immature Granulocytes 0 30401177 % ----Basos 0 13299451 % ----RDW 12.8 07998418 12.3-15.4 % ----Immature Grans (Abs) 0.0 43829758 0.0-0.1 x10E3/uL ----WBC 9.6 73402481 3.4-10.8 x10E3/uL ----Platelets 176 75647507 150-379 x10E3/uL ----Eos 3 04398396 % ----RBC 5.06 40763776 4.14-5.80 x10E6/uL ----Monocytes 9 [id number] % ROUTINE VENIPUNCTURE HIV ANTIGEN/ANTIBODY ----HIV Screen 4th Generation wRfx Non Reactive [id number] Non Reacti ve Summary Purpose eClinicalWorks Submission
--- OUTSIDE RECORDS SUMMARY | 2019-10-01 05:03 | XMS REPORT ---
Author Author Mike HWANG Organization [facility] Address [address] [place] [address] Care Team Providers Care Farm Facility Manager Name Role Phone ALEN HWANG Unavailable PROBLEMS Type Condition ICD9-CM Code [id number] Code Onset Dates Condition S tatus SNOMED Code Problem Hypothyroidism, unspecified E03.9 Ac tive 77857310 Problem Anxiety disorder, unspecified F41.9 Active 610330701 Problem Reactive depression F32.9 Active 50981130 Problem Chronic hepatitis C without hepatic coma B18.2 Active 436075754 Problem Essential hypertension I10 Active 78796540 Problem Obesity E66.9 Active 902918758 Problem Hyperlipidemia, unspecified hyperlipidemia type E7 8.5 Active 99120409 Problem Allergic rhinitis J30.9 Active 61 499851 ALLERGIES No Information SOCIAL HISTORY Never Assessed [...]
--- OUTSIDE RECORDS SUMMARY | 2019-10-01 05:03 | XMS REPORT ---
Author Author Mike HWANG Organization [facility] Address [address] [place] [address] Care Team Providers Care Carrier Blower Name Role Phone ALEN HWANG Unavailable PROBLEMS Type Condition ICD9-CM Code [id number] Code Onset Dates Condition S tatus SNOMED Code Problem Hypothyroidism, unspecified E03.9 Ac tive 35414871 Problem Anxiety disorder, unspecified F41.9 Active 876168562 Problem Reactive depression F32.9 Active 47283986 Problem Chronic hepatitis C without hepatic coma B18.2 Active 658043482 Problem Essential hypertension I10 Active 15932478 Problem Obesity E66.9 Active 285102291 Problem Hyperlipidemia, unspecified hyperlipidemia type E7 8.5 Active 32754106 Problem Allergic rhinitis J30.9 Active 61 133973 ALLERGIES No Information SOCIAL HISTORY Never Assessed [...]
--- OUTSIDE RECORDS SUMMARY | 2019-10-01 05:03 | XMS REPORT ---
Author Author Mike PULIDO Organization [employer] Address Unknown Phone Unavailable Care Team Providers Care Surveyor Oil Well Directional Name Role Phone CYRUS PULIDO CP Unavailable Allergies No Known Allergies Problems Problem Type Condition Code Onset Dates Condition Statu s Assessment Anxiety disorder, unspecified F41.9 Active Problem Hyperlipidemia, unspecified hyperlipidemia type E78.5 Active Problem Obesity E66.9 Active Problem Chronic hepatitis C without hepatic coma B18.2 Active Problem Hypothyroidism, unspecified E03.9 Active Problem Anxiety disorder, unspecified F41.9 Active Problem Essential hypertension I10 Activ e Problem Allergic rhinitis J30.9 Active Medications Medication Code System Code Instructions Start Date End Date Status Dosage HydrOXYzine HCl [facility] 47853532098 25 MG Orally TAKE ONE TABLET BY MOUTH TWICE DAILY Results No Known Results Summary Purpose [employer] Submission
--- OUTSIDE RECORDS SUMMARY | 2019-10-01 05:03 | XMS REPORT ---
Author Author Mike MÁRQUEZ [facility] [employer] Address Unknown Phone Unavailable Care Team Providers Care Fire Department Marine Engineer Name Role Phone KARTHIKEYAN MÁRQUEZ CP Unavailable Allergies No Known Allergies Problems Problem Type Condition Code Onset Dates Condition Statu s Problem Essential hypertension I10 Activ e Problem Allergic rhinitis J30.9 Active Problem Obesity E66.9 Active Problem Hypothyroidism, unspecified E03.9 Active Problem Anxiety disorder, unspecified F41.9 Active Medications No Known Medications Results No Known Results Summary Purpose [employer] Submission
--- OUTSIDE RECORDS SUMMARY | 2019-10-01 05:03 | XMS REPORT ---
Author Author Mike MÁRQUEZ [facility] [employer] Address Unknown Phone Unavailable Care Team Providers Care Medical Front Desk Specialist Name Role Phone KARTHIKEYAN MÁRQUEZ CP Unavailable Allergies No Known Allergies Problems Problem Type Condition Code Onset Dates Condition Statu s Problem Health examination of defined subpopulation V70.5 Active Problem Essential hypertension, benign 401.1 Active Problem Obesity, unspecified 278.00 Active Problem Anxiety disorder, unspecified F41.9 Active Problem Rash of groin 782.1 Active Problem Hypothyroidism, unspecified E03.9 Active Problem Abnormal weight gain 783.1 Active Problem Anxiety state, unspecified 300.00 A ctive Problem Unspecified hypothyroidism 244.9 A ctive Problem Screening for hypertension V81.1 A ctive Problem Screening examination for pulmonary tuberculosis V74.1 Active Problem Allergic rhinitis due to pollen 477.0 Active Assessment Screening for hypertension V81.1 A ctive Problem Special screening for malignant neoplasm of prostate V 76.44 Active Assessment Unspecified hypothyroidism 244.9 A ctive Problem Dermatophytosis of unspecified site 110.9 Active Medications No Known Medications Procedures Procedure Coding System Code Date LIPID PANEL CPT-4 70759 Jun 09, 2015 VENIPUNCT, ROUTINE* CPT-4 80345 Jun 09, 2015 ASSAY THYROID STIM HORMONE CPT-4 98933 May 252014 Results Name Result Date Reference Range Unit Abnormali ty Flag ROUTINE VENIPUNCTURE Summary Purpose [employer] Submission
--- OUTSIDE RECORDS SUMMARY | 2019-10-01 05:03 | XMS REPORT ---
Author Author Mike MÁRQUEZ [facility] [employer] Address Unknown Phone Unavailable Care Team Providers Care Automotive Fuel Injection Servicer Name Role Phone KARTHIKEYAN MÁRQUEZ CP Unavailable [...] rhinitis due to pollen 477.0 Active Assessment Anxiety disorder, unspecified F41.9 Active Problem Special screening for malignant neoplasm of prostate V 76.44 Active Assessment Hypothyroidism, unspecified E03.9 Active Problem Dermatophytosis of unspecified site 110.9 Active Medications Medication Code System Code Instructions Start Date End Date Status Dosage Levothyroxine Sodium [facility] [address]-21 100 MCG Ora lly Once a day. Must have appt prior to next refill May 14, 2015 1 HydrOXYzine HCl [facility] [address]-43 25 MG Orally 2 t imes a day. Must have appt prior to next refill. May 14, 2015 1 Results No Known Results Summary Purpose [employer] Submission
--- OUTSIDE RECORDS SUMMARY | 2019-10-01 05:03 | XMS REPORT ---
Author Author Mike MÁRQUEZ [facility] [employer] Address Unknown Phone Unavailable Care Team Providers Care Automotive Glass Technician Name Role Phone KARTHIKEYAN MÁRQUEZ CP Unavailable [...] Allergic rhinitis due to pollen 477.0 Active Problem Special screening for malignant neoplasm of prostate V 76.44 Active Problem Dermatophytosis of unspecified site 110.9 Active Medications No Known Medications Results No Known Results Summary Purpose [employer] Submission
--- OUTSIDE RECORDS SUMMARY | 2019-10-01 05:03 | XMS REPORT ---
Author Author Mike PULIDO Organization [facility] Address [address] [place] [address] Care Team Providers Care Evaluator Transfer Students Name Role Phone CYRUS PULIDO Unavailable PROBLEMS Type Condition ICD9-CM Code [id number] Code Onset Dates Condition S tatus SNOMED Code Assessment Eustachian tube dysfunction, bilateral H69.83 May, Active 21735405 Problem Anxiety disorder, unspecified F41.9 Active 907113875 Assessment Bronchitis J40 May, Active 86332 004 Problem Chronic hepatitis C without hepatic coma B18.2 Active 388720846 Problem Hyperlipidemia, unspecified hyperlipidemia type E7 8.5 Active 44693108 Problem Allergic rhinitis J30.9 Active 61 774114 Problem Hypothyroidism, unspecified E03.9 Ac tive 45252419 Problem Obesity E66.9 Active 678216429 Problem Essential hypertension I10 Active 52453543 ALLERGIES Substance Reaction Event Type Date Status N.K.D.A. Unknown Non Drug Allergy May, Unknown SOCIAL HISTORY No smoking Hx information available PLAN OF CARE VITAL SIGNS Height 70 in 2016-06-14 Weight 308 lbs 2016-06-14 Heart Rate 102 bpm 2016-06-14 Respiratory Rate 24 2016-06-14 BMI 44.19 kg/m2 2016-06-14 Blood pressure systolic 142 mmHg 2016-06-14 Blood pressure diastolic 84 mmHg 2016-06-14 MEDICATIONS Medication Instructions Dosage Frequency Start Date End Date Duration S tatus Levothyroxine Sodium 100 MCG TAKE ONE TA BLET BY MOUTH ONCE DAILY (MUST HAVE APPOINTMENT PRIOR TO NEXT REFILL!!!) 30 Active Aspirin 81 mg take 1 tablet (81 mg) by oral route once daily Oct, Active Claritin-D 12 Hour 5-120 MG Orally every 12 hrs 1 tablet as needed 12h May, Active Zithromax Z-Manfred 250 MG Orally Once a day 2 tablets on the first day, then 1 tablet daily for 4 days 24h May, May, 5 day(s) Acti ve HydrOXYzine HCl 25 MG TAKE ONE TABLET BY MOUTH TWICE DAILY 30 Active Lisinopril 10 MG Orally Once a day 1 tablet 24h 30 Active RESULTS No Results PROCEDURES Procedure Date Ordered Related Diagnosis Body Site Office Visit, Est Pt., Level 2 Jun 14, 2016 IMMUNIZATIONS No Known Immunizations
--- OUTSIDE RECORDS SUMMARY | 2019-10-01 05:03 | XMS REPORT ---
Author Author Mike HWANG Organization [facility] Address [address] [place] [address] Care Team Providers Care Bulbs Farmworker Name Role Phone ALEN HWANG Unavailable PROBLEMS Type Condition ICD9-CM Code OXN39-KG Code Onset Dates Condition S tatus SNOMED Code Problem Hypothyroidism, unspecified E03.9 Ac tive 84878790 Problem Anxiety disorder, unspecified F41.9 Active 936075437 Problem Reactive depression F32.9 Active 41324081 Problem Chronic hepatitis C without hepatic coma B18.2 Active 801163870 Problem Essential hypertension I10 Active 44065039 Problem Obesity E66.9 Active 287740886 Problem Hyperlipidemia, unspecified hyperlipidemia type E7 8.5 Active 83591413 Problem Allergic rhinitis J30.9 Active 61 [id number] ALLERGIES No Information ENCOUNTERS Encounter Location Date Diagnosis [facility] [address] [id number] [address] [place] [phone] Oct, Essential hypertension I10 ; Hypothyroidism, unspecified E03.9 and Dysfunction of left eustachian tube H69.82 [facility] [address] [id number] [address] [place] [phone] Sep, Chronic hepatitis C without hepatic coma B18.2 and Hypothyroidism, unspecified E03.9 [facility] [address] [id number] [address] [place] [phone] Sep, Hypothyroidism, unspecified E03.9 [facility] [address] [id number] [address] [place] [phone] May, Chronic hepatitis C without hepatic coma B18.2 [facility] [address] [id number] [address] [place] [phone] May, [facility] [address] [id number] [address] [place] [phone] Apr, Hypothyroidism, unspecified E03.9 and Chronic hepatitis C without hepatic coma B18.2 [facility] [address] [facility] [id number] [address] [place] [phone] Apr, Chronic hepatitis C without hepatic coma B18.2 [facility] [address] [facility] [id number] [address] [place] [id number] Mar, Reactive depression F32.9 an d Hypothyroidism, unspecified E03.9 [facility] [address] [facility] [id number] [address] [place] [phone] Feb, Reactive depression F32.9 an d Anxiety disorder, unspecified F41.9 [facility] [address] [facility] [id number] [address] [place] [phone] Feb, Chronic hepatitis C without hepatic coma B18.2 [facility] [address] [id number] [address] [place] [phone] Jan, Chronic hepatitis C without hepatic coma B18.2 [facility] [address] [facility] [id number] [address] [place] [phone] November, Encounter for immunization Z 23 and Chronic hepatitis C without hepatic coma B18.2 [facility] [address] [facility] [id number] [address] [place] [id number] November, [facility] [address] [facility] [id number] [address] [place] [phone] Oct, Chronic hepatitis C without hepatic coma B18.2 [facility] [address] [facility] [id number] [address] [place] [phone] Sep, [facility] [address] [id number] [address] [place] [phone] Aug, Gastroenteritis K52.9 [facility] [address] [facility] [id number] [address] [place] [phone] Aug, [facility] [address] [id number] [address] [place] [phone] Aug, [facility] [address] [facility] [id number] [address] [place] [phone] Aug, [facility] [address] [facility] [id number] [address] [place] [phone] Aug, [facility] [address] [facility] [id number] [address] [place] [phone] Jul, Encounter for immunization Z 23 ; Sinus tachycardia R00.0 and Chronic hepatitis C without hepatic coma B18.2 [facility] [address] [facility] [id number] [address] [place] [phone] Jun, Chronic hepatitis C without hepatic coma B18.2 [facility] [address] [facility] [id number] [address] [place] [phone] Jun, Chronic hepatitis C without hepatic coma B18.2 [facility] [address] [id number] [address] [place] [id number] May, Anxiety disorder, unspecifie d F41.9 [facility] [address] [facility] [id number] [address] [place] [id number] May, Bronchitis J40 and Eustachia n tube dysfunction, bilateral H69.83 [facility] [address] [facility] [id number] [address] [place] [phone] May, Chronic hepatitis C without hepatic coma B18.2 [facility] [address] [facility] [id number] [address] [place] [phone] May, Chronic hepatitis C without hepatic coma B18.2 [facility] [address] [facility] [id number] [address] [place] [phone] May, [facility] [address] [facility] [id number] [address] [place] [phone] Apr, Abnormal LFTs R79.89 [facility] [address] [facility] [id number] [address] [place] [phone] Apr, Abnormal LFTs R79.89 [place] [place] [address] [facility] [id number] [address] [place] [phone] 11 Apr, 2016 Obesity E66.9 ; Hypothyroidi sm, unspecified E03.9 and Hyperlipidemia, unspecified hyperlipidemia type E78.5 [place] [address] [facility] [id number] [address] [place] [phone] 10 Apr, 2016 Obesity E66.9 ; Hypothyroidi sm, unspecified E03.9 and Hyperlipidemia, unspecified hyperlipidemia type E78.5 [place] [address] [id number] [address] [place] [phone] Apr, Visit for TB skin test Z11.1 [place] [address] [phone] November, Obesity E66.9 [place] [address] [phone] Oct, Obesity E66.9 [place] [address] [address] Oct, Essential hypertension I10 ; Hypothyroidism, unspecified E03.9 and Obesity E66.9 [address] [address] [address] Jun, [address] [address] [id number] May, Essential hypertension I10 ; Allergic rhinitis J30.9 ; Hypothyroidism, unspecified E03.9 and Otitis media, unspecified, bilateral H66.93 [place] [address] [id number] [address] [place] [id number] May, Unspecified hypothyroidism 2 44.9 and Screening for hypertension V81.1 [place] [address] [id number] [address] [place] [id number] May, [place] [id number] [place] [phone] Apr, Hypothyroidism, unspecified E03.9 and Anxiety disorder, unspecified F41.9 [facility] [address] [facility] [id number] [address] [place] [phone] Feb, Essential hypertension, humza gn 401.1 [facility] [address] [facility] [id number] [address] [place] [phone] Feb, Unspecified hypothyroidism 2 44.9 and Screening for hypertension V81.1 [facility] [address] [id number] [address] [place] [id number] Feb, Essential hypertension, humza gn 401.1 ; Anxiety state, unspecified 300.00 and Rash of groin 782.1 [facility] [address] [id number] [address] [place] [phone] Feb, [facility] [address] [id number] [address] [place] [id number] Dec, Essential hypertension, humza gn 401.1 ; Anxiety state, unspecified 300.00 and Rash of groin 782.1 [facility] [address] [id number] [address] [place] [phone] November, [facility] [address] [facility] [id number] [address] [place] [phone] Oct, [facility] [address] [id number] [address] [place] [phone] Oct, [facility] [address] [id number] [address] [place] [phone] Sep, [facility] [address] [facility] [id number] [address] [place] [phone] Sep, [facility] [address] [id number] [address] [place] [phone] Aug, [facility] [address] [facility] [id number] [address] [place] [phone] Aug, [facility] [address] [id number] [address] [place] [phone] Jul, [facility] [address] [id number] [address] [place] [address], [place] [address] Jul, [facility] [address] [id number] [address] [place] [address], [place] [address] Jun, [facility] [address] [id number] [address] [place] [address], [place] [address] Jun, [facility] [address] [id number] [address] [place] [address], [place] [address] Jun, [facility] [address] [id number] [address] [place] [address], [place] [address] Jun, [facility] [address] [id number] [address] [place] [address], [place] [address] Jun, [facility] [address] [id number] [address] [place] [address], [place] [address] Jun, [facility] [address] [id number] [address] [place] [address], [place] [address] Jun, [facility] [address] [id number] [address] [place] [address], [place] [address] Jun, [facility] [address] [id number] [address] [place] [address], [place] [address] May, [facility] [address] [id number] [address] [place] [address], [place] [address] May, [facility] [address] [id number] [address] [place] [address], [place] [address] Feb, [facility] [address] [id number] [address] [place] [address], [place] [address] Feb, [facility] [address] [id number] [address] [place] [address], [place] [address] Feb, [facility] [address] [id number] [address] [place] [address], [place] [address] Feb, [facility] [address] [id number] [address] [place] [address], [place] [address] Feb, [facility] [address] [id number] [address] [place] [address], [place] [address] Feb, [facility] [address] [id number] [address] [place] [address], [place] [address] Feb, [facility] [address] [id number] [address] [place] [address], [place] [address] Feb, [facility] [address] [id number] [address] [place] [address], [place] [address] Feb, [facility] [address] [id number] [address] [place] [address], [place] [address] Feb, [facility] [address] [id number] [address] [place] [address], [place] [address] Feb, [facility] [address] [id number] [address] [place] [address], [place] [address] Feb, [facility] [address] [id number] [address] [place] [address], [place] [address] Jan, [facility] [address] [id number] [address] [place] [address], [place] [address] Jan, [facility] [address] [id number] [address] [place] [address], [place] [address] Jan, [facility] [address] [id number] [address] [place] [address], [place] [address] Jan, [facility] [address] [id number] [address] [place] [address], [place] [address] Dec, [facility] [address] [id number] [address] [place] [address], [place] [address] Dec, [facility] [address] [id number] [address] [place] [address], [place] [address] Oct, [facility] [address] [id number] [address] [place] [address], [place] [address] Oct, [facility] [address] [id number] [address] [place] [address], [place] [address] Oct, [facility] [address] [id number] [address] [place] [address], [place] [address] Oct, [facility] [address] [id number] [address] [place] [address], [place] [address] Oct, [facility] [address] [id number] [address] [place] [address], [place] [address] Oct, [facility] [address] [id number] [address] [place] [address], [place] [address] Oct, [facility] [address] [id number] [address] [place] [address], [place] [address] Aug, [facility] [address] [id number] [address] [place] [address], [place] [address] Aug, [facility] [address] [id number] [address] [place] [address], [place] [address] Jul, [facility] [address] [id number] [address] [place] [address], [place] [address] Jul, [facility] [address] [id number] [address] [place] [address], [place] [address] Jul, [facility] [address] [id number] [address] [place] [address], [place] [address] Jul, [facility] [address] [id number] [address] [place] [phone] Jun, [facility] [address] [id number] [address] [place] [address], [place] [address] Jun, [facility] [address] [id number] [address] [place] [address], [place] [address] May, [facility] [address] [id number] [address] [place] [address], [place] [address] May, [facility] [address] [id number] [address] [place] [address] May, [facility] [address] [facility] [id number] [address] [place] [phone] Oct, [facility] [address] [facility] [id number] [address] [place] [phone] Oct, IMMUNIZATIONS No Known Immunizations SOCIAL HISTORY Never Assessed REASON FOR VISIT Lab (walk-in) PLAN OF CARE VITAL SIGNS MEDICATIONS No Known Medications RESULTS No Results PROCEDURES Procedure Date Ordered Result Body Site VENIPUNCT, ROUTINE* May 25, 2017 INSTRUCTIONS MEDICATIONS ADMINISTERED No Known Medications MEDICAL (GENERAL) HISTORY Type Description Date Medical History Hearing loss Medical History Acid reflux Medical History Inguinal hernia at -1965 Medical History Depression Medical History HTN Medical History ANXIETY Surgical History Left ear surgery Surgical History Appendectomy Surgical History Left knee ACL/MCL repair Surgical History HERNIA SURGERY
--- OUTSIDE RECORDS SUMMARY | 2019-10-01 05:03 | XMS REPORT ---
Author Author Mike HWANG Organization [facility] Address [address] [place] [address] Care Team Providers Care Protection Consultant Name Role Phone ALEN HWANG Unavailable PROBLEMS Type Condition ICD9-CM Code IAQ96-OM Code Onset Dates Condition S tatus SNOMED Code Problem Hypothyroidism, unspecified E03.9 Ac tive 42844669 Problem Anxiety disorder, unspecified F41.9 Active 725735464 Problem Reactive depression F32.9 Active 38221189 Problem Chronic hepatitis C without hepatic coma B18.2 Active 432299478 Problem Essential hypertension I10 Active 36134033 Problem Obesity E66.9 Active 354906230 Problem Hyperlipidemia, unspecified hyperlipidemia type E7 8.5 Active 00042682 Problem Allergic rhinitis J30.9 Active 61 357135 ALLERGIES No Information ENCOUNTERS Encounter Location Date Diagnosis [facility] [address] [id number] [address] [place] [address] Oct, [facility] [id number] [address] [place] [address] Sep, Chronic hepatitis C without hepatic coma B18.2 and Hypothyroidism, unspecified E03.9 [facility] [id number] [address] [place] [address] Sep, Hypothyroidism, unspecified E03.9 [facility] [address] [facility] [id number] [address] [place] [address] May, Chronic hepatitis C without hepatic coma B18.2 [facility] [address] [facility] [id number] [address] [place] [address] May, [facility] [id number] [address] [place] [address] Apr, Hypothyroidism, unspecified E03.9 and Chronic hepatitis C without hepatic coma B18.2 [facility] [address] [facility] [id number] [address] [place] [address] Apr, Chronic hepatitis C without hepatic coma B18.2 [facility] [address] [facility] [id number] [address] [place] [address] Mar, Reactive depression F32.9 an d Hypothyroidism, unspecified E03.9 [facility] [address] [facility] [id number] [address] [place] [address] Feb, Reactive depression F32.9 an d Anxiety disorder, unspecified F41.9 [facility] [address] [facility] [id number] [address] [place] [address] Feb, Chronic hepatitis C without hepatic coma B18.2 [facility] [address] [facility] [id number] [address] [place] [address] Jan, Chronic hepatitis C without hepatic coma B18.2 [facility] [id number] [place] [address] November, Encounter for immunization Z 23 and Chronic hepatitis C without hepatic coma B18.2 [facility] [address] [facility] [id number] [address] [place] [address] November, [facility] [address] [facility] [id number] [address] [place] [address] Oct, Chronic hepatitis C without hepatic coma B18.2 [facility] [address] [facility] [id number] [address] [place] [address] Sep, [facility] [address] [facility] [id number] [address] [place] [address] Aug, Gastroenteritis K52.9 [facility] [address] [facility] [id number] [address] [place] [address] Aug, [facility] [address] [facility] [id number] [address] [place] [address] Aug, [facility] [id number] [address] [place] [address] 06 Aug, 2016 [facility] [id number] [address] [place] [address] Aug, [facility] [id number] [place] [address] Jul, Encounter for immunization Z 23 ; Sinus tachycardia R00.0 and Chronic hepatitis C without hepatic coma B18.2 [facility] [address] [address] Jun, Chronic hepatitis C without hepatic coma B18.2 [facility] [address] [address] Jun, Chronic hepatitis C without hepatic coma B18.2 [facility] [address] [address] May, Anxiety disorder, unspecifie d F41.9 [facility] [address] [address] May, Bronchitis J40 and Eustachia n tube dysfunction, bilateral H69.83 [facility] [address] [address] May, Chronic hepatitis C without hepatic coma B18.2 [facility] [address] [address] May, Chronic hepatitis C without hepatic coma B18.2 [facility] [address] [id number] [address] [place] [address] May, [facility] [address] [address] 19 Apr, 2016 Abnormal LFTs R79.89 [facility] [id number] [place] [address] 14 Apr, 2016 Abnormal LFTs R79.89 [facility] [address] [address] Apr, Obesity E66.9 ; Hypothyroidi sm, unspecified E03.9 and Hyperlipidemia, unspecified hyperlipidemia type E78.5 [place] [address] [address] Apr, Obesity E66.9 ; Hypothyroidi sm, unspecified E03.9 and Hyperlipidemia, unspecified hyperlipidemia type E78.5 [place] [address] [address] Apr, Visit for TB skin test Z11.1 [place] [address] [address] November, Obesity E66.9 [place] [address] [address] Oct, Obesity E66.9 [place] [address] [address] Oct, Essential hypertension I10 ; Hypothyroidism, unspecified E03.9 and Obesity E66.9 [place] [address] [address] Jun, [place] [address] [address] May, Essential hypertension I10 ; Allergic rhinitis J30.9 ; Hypothyroidism, unspecified E03.9 and Otitis media, unspecified, bilateral H66.93 [place] [address] [address] May, Unspecified hypothyroidism 2 44.9 and Screening for hypertension V81.1 [place] [address] [address] May, [place] [address] [address] Apr, Hypothyroidism, unspecified E03.9 and Anxiety disorder, unspecified F41.9 [place] [address] [place] [address] Feb, Essential hypertension, humza gn 401.1 [facility] [address] [facility] [id number] [address] [place] [address] Feb, Unspecified hypothyroidism 2 44.9 and Screening for hypertension V81.1 [facility] [address] [facility] [id number] [address] [place] [address] Feb, Essential hypertension, humza gn 401.1 ; Anxiety state, unspecified 300.00 and Rash of groin 782.1 [facility] [address] [id number] [address] [place] [address] Feb, [facility] [address] [facility] [id number] [address] [place] [address] Dec, Essential hypertension, humza gn 401.1 ; Anxiety state, unspecified 300.00 and Rash of groin 782.1 [facility] [address] [id number] [address] [place] [address] November, [facility] [address] [facility] [id number] [address] [place] [address] Oct, [facility] [address] [facility] [id number] [address] [place] [address] Oct, [facility] [address] [facility] [id number] [address] [place] [address] Sep, [facility] [address] [facility] [id number] [address] [place] [address] Sep, [facility] [address] [facility] [id number] [address] [place] [address] Aug, [facility] [address] [facility] [id number] [address] [place] [address] Aug, [facility] [address] [facility] [id number] [address] [place] [address] Jul, [facility] [address] [facility] [id number] [address] [place] [address] Jul, [facility] [address] [id number] [address] [place] [address], [place] [address] Jun, [facility] [address] [id number] [address] [place] [address], [place] [address] Jun, [facility] [address] [id number] [address] [place] [address], [place] [address] Jun, [facility] [address] [id number] [address] [place] [address], [place] [address] Jun, [facility] [address] [id number] [address] [place] [address], [place] [address] Jun, [facility] [address] [id number] [address] [place] [address], [place] [address] Jun, [facility] [address] [id number] [address] [place] [address], [place] [address] Jun, [facility] [address] [id number] [address] [place] [address], [place] [address] Jun, [facility] [address] [id number] [address] [place] [address], [place] [address] May, [facility] [address] [id number] [address] [place] [address], [place] [address] May, [facility] [address] [id number] [address] [place] [address], [place] [address] Feb, [facility] [place] [facility] [address] [id number] [address] [place] [address], [place] [address] Feb, [facility] [place] [facility] [address] [id number] [address] [place] [address], [place] [address] Feb, [facility] [place] [facility] [address] [id number] [address] [place] [address], [place] [address] Feb, [facility] [place] [facility] [address] [id number] [address] [place] [address], [place] [address] Feb, [facility] [place] [facility] [address] [id number] [facility] [place] [address] Feb, [facility] [place] [facility] [address] [id number] [facility] [place] [address] Feb, [facility] [place] [facility] [address] [id number] [address] [place] [address], [place] [address] Feb, [facility] [address] [id number] [address] [place] [address], [place] [address] Feb, [facility] [address] [id number] [address] [place] [address], [place] [address] Feb, [facility] [place] [facility] [address] [id number] [address] [place] [address], [place] [address] Feb, [facility] [place] [address] [id number] [address] [place] [address], [place] [address] Feb, [facility] [place] [address] [id number] [address] [place] [address], [place] [address] Jan, [facility] [place] [facility] [address] [id number] [address] [place] [address], [place] [address] Jan, [facility] [place] [facility] [address] [id number] [address] [place] [address], [place] [address] Jan, [facility] [place] [facility] [address] [id number] [address] [place] [address], [place] [address] Jan, [facility] [place] [facility] [address] [id number] [address] [place] [address], [place] [address] Dec, [facility] [place] [facility] [address] [id number] [address] [place] [address], [place] [address] Dec, [facility] [place] [facility] [address] [id number] [address] [place] [address], [place] [address] Oct, [facility] [place] [facility] [address] [id number] [address] [place] [address], [place] [address] Oct, [facility] [place] [facility] [address] [id number] [address] [place] [address], [place] [address] Oct, [facility] [address] [id number] [address] [place] [address], [place] [address] Oct, [facility] [address] [id number] [address] [place] [address], [place] [address] Oct, [facility] [address] [id number] [address] [place] [address], [place] [address] Oct, [facility] [address] [id number] [address] [place] [address], [place] [address] Oct, [facility] [address] [id number] [address] [place] [address], [place] [address] Aug, [facility] [address] [id number] [address] [place] [address], [place] [address] Aug, [facility] [address] [id number] [address] [place] [address], [place] [address] Jul, [facility] [address] [id number] [address] [place] [address], [place] [address] Jul, [facility] [address] [id number] [address] [place] [address], [place] [address] Jul, [facility] [address] [id number] [address] [place] [address], [place] [address] Jul, [facility] [address] [id number] [address] [place] [address], [place] [address] Jun, [facility] [place] [facility] [address] [id number] [address] [place] [address], [place] [address] Jun, [facility] [address] [id number] [address] [place] [address], [place] [address] May, [facility] [address] [id number] [address] [place] [address], [place] [address] May, [facility] [address] [id number] [address] [place] [address], [place] [address] May, [facility] [address] [id number] [address] [place] [address] Oct, [facility] [address] [facility] [id number] [address] [place] [address] Oct, IMMUNIZATIONS No Known Immunizations SOCIAL HISTORY Never Assessed REASON FOR VISIT Lab (walk-in) PLAN OF CARE VITAL SIGNS MEDICATIONS Unknown Medications RESULTS Name Result Date Reference Range CBC 2017-02-15 WBC 10.4 3.4-10.8 RBC 5.06 4.14-5.80 Hemoglobin 16.8 12.6-17.7 Hematocrit 49.2 37.5-51.0 MCV 97 79-97 MCH 33.2 26.6-33.0 MCHC 34.1 31.5-35.7 RDW 12.9 12.3-15.4 Platelets 172 150-379 Neutrophils 52 Lymphs 39 Monocytes 7 Eos 2 Basos 0 Immature Cells Neutrophils (Absolute) 5.3 1.4-7.0 Lymphs (Absolute) 4.0 0.7-3.1 Monocytes(Absolute) 0.7 0.1-0.9 Eos (Absolute) 0.2 0.0-0.4 Baso (Absolute) 0.0 0.0-0.2 Immature Granulocytes 0 Immature Grans (Abs) 0.0 0.0-0.1 NR Hematology Comments: PT/INR 2017-02-15 INR 1.0 0.8-1.2 Prothrombin Time 10.6 9.1-12.0 CMP 2017-02-15 Glucose, Serum 135 65-99 BUN 11 6-24 Creatinine, Serum 0.74 0.76-1.27 eGFR If NonAfricn Am 106 >59 eGFR If Africn Am 123 >59 BUN/Creatinine Ratio 15 9-20 Sodium, Serum 136 134-144 Potassium, Serum 4.1 3.5-5.2 Chloride, Serum 98 96-106 Carbon Dioxide, Total 20 18-29 Calcium, Serum 9.2 8.7-10.2 Protein, Total, Serum 7.8 6.0-8.5 Albumin, Serum 4.1 3.5-5.5 Globulin, Total 3.7 1.5-4.5 A/G Ratio 1.1 1.2-2.2 Bilirubin, Total 0.6 0.0-1.2 Alkaline Phosphatase, S 57 39-117 AST (SGOT) 36 0-40 ALT (SGPT) 40 0-44 HEP C RNA QUANT ([employer] ONLY) 2017-02-15 PROCEDURES Procedure Date Ordered Result Body Site COMPLETE CBC W/AUTO DIFF WBC February 15, 2017 PROTHROMBIN TIME February 15, 2017 HEP C RNA QUANT ([employer] ONLY) February 15, 2017 COMPREHEN METABOLIC PANEL February 15, 2017 VENIPUNCT, ROUTINE* February 15, 2017 INSTRUCTIONS MEDICATIONS ADMINISTERED No Known Medications MEDICAL (GENERAL) HISTORY Type Description Date Medical History Hearing loss Medical History Acid reflux Medical History Inguinal hernia at -1965 Medical History Depression Medical History HTN Medical History ANXIETY Surgical History Left ear surgery Surgical History Appendectomy Surgical History Left knee ACL/MCL repair Surgical History HERNIA SURGERY
--- OUTSIDE RECORDS SUMMARY | 2019-10-01 05:03 | XMS REPORT ---
Author Author Mike PULIDO Organization [facility] Address [address] [place] [address] Care Team Providers Care Section Hand Helper Name Role Phone CYRUS PULIDO Unavailable PROBLEMS Type Condition ICD9-CM Code [id number] Code Onset Dates Condition S tatus SNOMED Code Problem Hypothyroidism, unspecified E03.9 Ac tive 75674128 Problem Anxiety disorder, unspecified F41.9 Active 338700998 Problem Reactive depression F32.9 Active 78788622 Problem Chronic hepatitis C without hepatic coma B18.2 Active 003754151 Problem Essential hypertension I10 Active 63584415 Problem Obesity E66.9 Active 271085909 Problem Hyperlipidemia, unspecified hyperlipidemia type E7 8.5 Active 05190141 Problem Allergic rhinitis J30.9 Active 61 612887 ALLERGIES No Known Allergies SOCIAL HISTORY Never Assessed PLAN OF CARE Activity Details Follow Up prn Reason: VITAL SIGNS Height 70 in 2016-09-17 Weight 304.8 lbs 2016-09-17 Temperature 98.3 degrees Fahrenheit 2016-09-17 Heart Rate 90 bpm 2016-09-17 Respiratory Rate 22 2016-09-17 BMI 43.73 kg/m2 2016-09-17 Blood pressure systolic 130 mmHg 2016-09-17 Blood pressure diastolic 80 mmHg 2016-09-17 MEDICATIONS Medication Instructions Dosage Frequency Start Date End Date Duration S tatus Claritin-D 12 Hour 5-120 MG Orally every 12 hrs 1 tablet as needed 12h May, Active Promethazine HCl 25 MG Orally every 6 hrs 1 tablet as needed 6h Aug, Aug, 2 days Active Lisinopril 10 MG Orally Once [...] PRIOR TO NEXT REFILL!!!) 30 Active RESULTS No Results PROCEDURES No [...]
--- OUTSIDE RECORDS SUMMARY | 2019-10-01 05:03 | XMS REPORT ---
Author Author Mike MÁRQUEZ [facility] eClinical[employer] Address Unknown Phone Unavailable Care Team Providers Care Company Tanker Truck Driver Name Role Phone KARTHIKEYAN MÁRQUEZ CP Unavailable Allergies, Adverse Reactions, Alerts Substance Reaction Event Type N.K.D.A. Info Not Available Non Drug Allergy Problems Problem Type Condition Code Onset Dates Condition Statu s Assessment Hypothyroidism, unspecified E03.9 Active Assessment Otitis media, unspecified, bilateral H66.93 Active Problem Essential hypertension I10 Activ e Problem Allergic rhinitis J30.9 Active Problem Obesity E66.9 Active Assessment Essential hypertension I10 Activ e Assessment Allergic rhinitis J30.9 Active Problem Hypothyroidism, unspecified E03.9 Active Problem Anxiety disorder, unspecified F41.9 Active Medications Medication Code System Code Instructions Start Date End Date Status Dosage Amoxicillin [facility] [address]-33 500 MG Orally 3 times a day Jun 11, 2015 Jun 21, 2015 1 tablet Lisinopril [facility] [address]-28 10 MG Orally Once a day 1 tablet Flonase [facility] [address]-54 50 MCG/ACT Nasally Once a day Jun 11, 2015 1 spray in each nostril Levothyroxine Sodium [facility] [address]-82 100 MCG Ora lly Once a day. Must have appt prior to next refill May 14, 2015 1 HydrOXYzine HCl [facility] [address]-29 25 MG Orally 2 t imes a day. Must have appt prior to next refill. May 14, [address] [facility] [address] 81 mg November 16, 2011 take 1 tablet (81 mg) by oral route once daily PredniSONE [facility] [address]-01 10 MG Orally Once a day Jun 11 5 Jun 16, 2015 1 tablet with food or milk Zyrtec Allergy [facility] [address]-39 10 MG Orally Once a day 1 tablet as needed Procedures Procedure Coding System Code Date ASSAY OF FREE THYROXINE CPT-4 15782 Jun 11, 2015 Office Visit, Est Pt., Level 3 CPT-4 74708 N 2014 ASSAY, TRIIODOTHYRONINE (T3) CPT-4 32485 Jun 11, 2015 VENIPUNCT, ROUTINE* CPT-4 64249 Jun 11, 2015 Vital Signs Date/Time: Jun 11, 2015 Temperature 97.8 F Weight 300.4 lbs Height 70 in BMI 43.10 Index Blood Pressure Diastolic 84 mmHg Blood Pressure Systolic 142 mmHg Cardiac Monitoring Heart Rate 74 bpm Results Name Result Date Reference Range Unit Abnormali ty Flag T4 FREE Summary Purpose eClinicalWorks Submission
--- OUTSIDE RECORDS SUMMARY | 2019-10-01 05:04 | XMS REPORT | Continuity of Care Document ---
Author Organization Unknown Address Unknown Phone Unavailable Allergies Active Description Code Type Severity Reaction Onset Reported/Identified Relationship to Patient Clinical Status Yes No Known Drug Allergies [id number] Drug Allergy Unknown N/A 09/08/2019 Medications There is no data. Problems Date Dx Coded Attending Type Code Diagnosis Diagnosed By 11/16/2011 MALCOLM HERNÁNDEZ DO 477.0 ALLERGIC RHINITIS - POLLEN 11/16/2011 MALCOLM HERNÁNDEZ DO K 477.0 ALLERGIC RHINITIS - POLLEN 11/16/2011 SLY DISTANCE LEARNING TECHNICIAN, RHETT R 477.0 ALLERGIC RHINITIS - POLLEN 11/16/2011 SLY DISTANCE LEARNING TECHNICIAN, RHETT R 477.0 ALLERGIC RHINITIS - POLLEN 11/16/2011 SLY DISTANCE LEARNING TECHNICIAN, RHETT R 477.0 ALLERGIC RHINITIS - POLLEN 11/16/2011 SLY DISTANCE LEARNING TECHNICIAN, RHETT R 477.0 ALLERGIC RHINITIS - POLLEN 11/16/2011 SLY DISTANCE LEARNING TECHNICIAN, RHETT R 477.0 ALLERGIC RHINITIS - POLLEN 11/16/2011 SLY DISTANCE LEARNING TECHNICIAN, RHETT R 477.0 ALLERGIC RHINITIS - POLLEN 11/16/2011 SLY DISTANCE LEARNING TECHNICIAN, RHETT R 477.0 ALLERGIC RHINITIS - POLLEN 11/16/2011 SLY DISTANCE LEARNING TECHNICIAN, RHETT R 477.0 ALLERGIC RHINITIS - POLLEN 06/18/2013 MALCOLM HERNÁNDEZ DO K V74.1 TB SCREENING 06/18/2013 MALCOLM HERNÁNDEZ DO K V74.1 TB SCREENING 06/18/2013 SLY DISTANCE LEARNING TECHNICIAN, RHETT R V74.1 TB SCREENING 06/18/2013 SLY DISTANCE LEARNING TECHNICIAN, RHETT R V74.1 TB SCREENING 06/18/2013 SLY DISTANCE LEARNING TECHNICIAN, RHETT R V74.1 TB SCREENING 06/18/2013 SLY DISTANCE LEARNING TECHNICIAN, RHETT R V74.1 TB SCREENING 06/18/2013 SLY DISTANCE LEARNING TECHNICIAN, RHETT R V74.1 TB SCREENING 06/18/2013 SLY DISTANCE LEARNING TECHNICIAN, RHETT R V74.1 TB SCREENING 06/18/2013 SLY DISTANCE LEARNING TECHNICIAN, RHETT R V74.1 TB SCREENING 06/18/2013 SLY DISTANCE LEARNING TECHNICIAN, RHETT R V74.1 TB SCREENING 07/06/2013 HERNÁNDEZ DO, MALCOLM K V70.5 EXAM - PRE-EMPLOYMENT 07/06/2013 SLY DISTANCE LEARNING TECHNICIAN, RHETT R V70.5 EXAM - PRE-EMPLOYMENT 07/06/2013 SLY DISTANCE LEARNING TECHNICIAN, RHETT R V70.5 EXAM - PRE-EMPLOYMENT 07/06/2013 SLY DISTANCE LEARNING TECHNICIAN, RHETT R V70.5 EXAM - PRE-EMPLOYMENT 07/06/2013 SLY DISTANCE LEARNING TECHNICIAN, RHETT R V70.5 EXAM - PRE-EMPLOYMENT 07/06/2013 SLY DISTANCE LEARNING TECHNICIAN, RHETT R V70.5 EXAM - PRE-EMPLOYMENT 07/06/2013 SLY DISTANCE LEARNING TECHNICIAN, RHETT R V70.5 EXAM - PRE-EMPLOYMENT 07/06/2013 SLY DISTANCE LEARNING TECHNICIAN, RHETT R V70.5 EXAM - PRE-EMPLOYMENT 07/06/2013 SLY DISTANCE LEARNING TECHNICIAN, RHETT R V70.5 EXAM - PRE-EMPLOYMENT 07/31/2013 SLY DISTANCE LEARNING TECHNICIAN, RHETT R V81.1 HYPERTENSION SCREENING 07/31/2013 SLY DISTANCE LEARNING TECHNICIAN, RHETT R V81.1 HYPERTENSION SCREENING 07/31/2013 SLY DISTANCE LEARNING TECHNICIAN, RHETT R V81.1 HYPERTENSION SCREENING 07/31/2013 SLY DISTANCE LEARNING TECHNICIAN, RHETT R V81.1 HYPERTENSION SCREENING 07/31/2013 SLY DISTANCE LEARNING TECHNICIAN, RHETT R V81.1 HYPERTENSION SCREENING 07/31/2013 SLY DISTANCE LEARNING TECHNICIAN, RHETT R V81.1 HYPERTENSION SCREENING 07/31/2013 SLY DISTANCE LEARNING TECHNICIAN, RHETT R V81.1 HYPERTENSION SCREENING 07/31/2013 SLY DISTANCE LEARNING TECHNICIAN, RHETT R V81.1 HYPERTENSION SCREENING 10/31/2013 SLY DISTANCE LEARNING TECHNICIAN, RHETT R 300.00 ANXIETY STATE UNSPECIFIED 10/31/2013 SLY DISTANCE LEARNING TECHNICIAN, RHETT R 783.1 ABNORMAL WEIGHT GAIN 10/31/2013 SLY DISTANCE LEARNING TECHNICIAN, RHETT R 300.00 ANXIETY STATE UNSPECIFIED 10/31/2013 SLY DISTANCE LEARNING TECHNICIAN, RHETT R 783.1 ABNORMAL WEIGHT GAIN 10/31/2013 SLY DISTANCE LEARNING TECHNICIAN, RHETT R 300.00 ANXIETY STATE UNSPECIFIED 10/31/2013 SLY DISTANCE LEARNING TECHNICIAN, RHETT R 783.1 ABNORMAL WEIGHT GAIN 10/31/2013 SLY DISTANCE LEARNING TECHNICIAN, RHETT R 300.00 ANXIETY STATE UNSPECIFIED 10/31/2013 SLY DISTANCE LEARNING TECHNICIAN, RHETT R 783.1 ABNORMAL WEIGHT GAIN 10/31/2013 SLY DISTANCE LEARNING TECHNICIAN, RHETT R 300.00 ANXIETY STATE UNSPECIFIED 10/31/2013 SLY DISTANCE LEARNING TECHNICIAN, RHETT R 783.1 ABNORMAL WEIGHT GAIN 10/31/2013 SLY DISTANCE LEARNING TECHNICIAN, RHETT R 300.00 ANXIETY STATE UNSPECIFIED 10/31/2013 SLY DISTANCE LEARNING TECHNICIAN, RHETT R 783.1 ABNORMAL WEIGHT GAIN 10/31/2013 SLY DISTANCE LEARNING TECHNICIAN, RHETT R 300.00 ANXIETY STATE UNSPECIFIED 10/31/2013 SLY DISTANCE LEARNING TECHNICIAN, RHETT R 783.1 ABNORMAL WEIGHT GAIN 02/28/2014 SLY DISTANCE LEARNING TECHNICIAN, RHETT R 244.9 HYPOTHYROIDISM 02/28/2014 SLY DISTANCE LEARNING TECHNICIAN, RHETT R 244.9 HYPOTHYROIDISM 02/28/2014 SLY DISTANCE LEARNING TECHNICIAN, RHETT R 244.9 HYPOTHYROIDISM 02/28/2014 SLY DISTANCE LEARNING TECHNICIAN, RHETT R 244.9 HYPOTHYROIDISM 03/14/2014 SLY DISTANCE LEARNING TECHNICIAN, RHETT R 110.9 RINGWORM - UNSPECIFIED SITE 03/14/2014 SLY DISTANCE LEARNING TECHNICIAN, RHETT R V76.44 SCREENING FOR MALIGNANT NEOPLASMS OF THE PROSTATE 03/14/2014 SLY DISTANCE LEARNING TECHNICIAN, RHETT R 110.9 RINGWORM - UNSPECIFIED SITE 03/14/2014 SLY DISTANCE LEARNING TECHNICIAN, RHETT R V76.44 SCREENING FOR MALIGNANT NEOPLASMS OF THE PROSTATE 03/14/2014 SLY DISTANCE LEARNING TECHNICIAN, RHETT R 110.9 RINGWORM - UNSPECIFIED SITE 03/14/2014 SLY DISTANCE LEARNING TECHNICIAN, RHETT R V76.44 SCREENING FOR MALIGNANT NEOPLASMS OF THE PROSTATE 07/03/2014 SLY DISTANCE LEARNING TECHNICIAN, RHETT R 278.00 OBESITY UNSPECIFIED 07/03/2014 SLY DISTANCE LEARNING TECHNICIAN, RHETT R 401.1 BENIGN ESSENTIAL HYPERTENSION 05/18/2017 GERARDO NEGRO MD Ot E66. 01 MORBID (SEVERE) OBESITY DUE TO EXCESS CA 05/18/2017 SRUTHI FONTANA, GERARDO Judd Ot M25.561 PAIN IN RIGHT KNEE 05/18/2017 GERARDO NEGRO MD Ot Z02. 71 ENCOUNTER FOR DISABILITY DETERMINATION 05/25/2017 GERARDO NEGRO MD Ot E66. 01 MORBID (SEVERE) OBESITY DUE TO EXCESS CA 05/25/2017 GERARDO NEGRO MD Ot M25.561 PAIN IN RIGHT KNEE 05/25/2017 GERARDO NGERO MD Ot Z02. 71 ENCOUNTER FOR DISABILITY DETERMINATION 05/25/2017 BERENICE FONTANA, ALEN Levine Ot B18 .2 CHRONIC VIRAL HEPATITIS C 06/14/2017 GERARDO NEGRO MD Ot E66. 01 MORBID (SEVERE) OBESITY DUE TO EXCESS CA 06/14/2017 GERARDO NEGRO MD Ot M25.561 PAIN IN RIGHT KNEE 06/14/2017 GERARDO NEGRO MD Ot Z02. 71 ENCOUNTER FOR DISABILITY DETERMINATION 06/14/2017 ALEN NG MD Ot B18 .2 CHRONIC VIRAL HEPATITIS C 06/14/2017 ALEN NG MD Ot B18 .2 CHRONIC VIRAL HEPATITIS C 06/27/2017 ALEN NG MD Ot B18 .2 CHRONIC VIRAL HEPATITIS C 06/27/2017 GERARDO NEGRO MD Ot E66. 01 MORBID (SEVERE) OBESITY DUE TO EXCESS CA 06/27/2017 GERARDO NEGRO MD Ot M25.561 PAIN IN RIGHT KNEE 06/27/2017 GERARDO NEGRO MD Ot Z02. 71 ENCOUNTER FOR DISABILITY DETERMINATION 06/27/2017 ALEN NG MD Ot B18 .2 CHRONIC VIRAL HEPATITIS C 09/08/2019 GERARDO NEGRO MD Ot E66. 01 MORBID (SEVERE) OBESITY DUE TO EXCESS CA 09/08/2019 GERARDO NEGRO MD Ot M25.561 PAIN IN RIGHT KNEE 09/08/2019 GERARDO NEGRO MD H Ot Z02. 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 09/14/2019 MEME, LUIS ANTONIO METAL ROLLING MILL OPERATOR Ot Z91.14 PATIENT'S OTHER NONCOMPLIANCE WITH MEDIC 09/14/2019 MEME, LUIS ANTONIO METAL ROLLING MILL OPERATOR Ot R73.03 PREDIABETES 09/14/2019 MEME, LUIS ANTONIO METAL ROLLING MILL OPERATOR Ot R73.9 HYPERGLYCEMIA, UNSPECIFIED 09/14/2019 MEME, LUIS ANTONIO METAL ROLLING MILL OPERATOR Ot Z79.84 SKILLED NURSING (CURRENT) USE OF ORAL HYPOGLYC 09/14/2019 MEME, LUIS ANTONIO METAL ROLLING MILL OPERATOR Ot Z91.14 PATIENT'S OTHER NONCOMPLIANCE WITH MEDIC Procedures Code Description [place] [address] TB T EST INTRADERMAL 06/18/2013 2000F BLOO D PRESSURE CHECK 08/01/2013 62879 ROUT INE VENIPUNCTURE 02/21/2014 81896 CBC 02/21/2014 3029953 GF R CALC (RESULT ONLY) 02/21/2014 05812 CMP 02/21/2014 60087 LIPI D PANEL 02/21/2014 78359 TSH 02/21/2014 62502 TEST OSTERONE TOTAL MALES 02/21/2014 11580 ROUT INE VENIPUNCTURE 03/07/2014 27892 PROLACTIN 03/07/2014 18405 T4 FREE 03/07/2014 49897 T3 TOTAL 03/07/2014 19906 PSA FREE AND TOTAL 03/08/2014 92711 HEMOCCULT 03/14/2014 48883 ROUT INE VENIPUNCTURE 06/24/2014 31701 TSH 06/24/2014 Results Test Result Range TSH - 05/18/17 12:30 TSH 5.260 uIU/mL 0.450-4.500 Request Problem QNS NRG [facility] - 05/25/17 12:43 GLUCOSE 75 mg/dL 65-99 UREA NITROGEN (BUN) 12 mg/dL 7-25 CREATININE 0.79 mg/dL 0.70-1.33 eGFR NON-AFR. SYRIAN 103 mL/min/1.73m2 > OR = 60 eGFR 120 mL/min/1.73m2 > OR = 60 BUN/CREATININE RATIO NOT APPLICABLE (calc) 6-22 SODIUM 135 mmol/L 135-146 POTASSIUM 4.3 mmol/L 3.5-5.3 CHLORIDE 100 mmol/L 98-110 CARBON DIOXIDE 24 mmol/L 20-31 CALCIUM 9.9 mg/dL 8.6-10.3 PROTEIN, TOTAL 8.5 g/dL 6.1-8.1 ALBUMIN 4.6 g/dL 3.6-5.1 GLOBULIN 3.9 g/dL (calc) 1.9-3.7 ALBUMIN/GLOBULIN RATIO 1.2 (calc) 1.0-2. 5 BILIRUBIN, TOTAL 0.7 mg/dL 0.2-1.2 ALKALINE PHOSPHATASE 62 U/L 40-115 AST 31 U/L 10-35 ALT 42 U/L 9-46 TSH - 05/25/17 12:43 TSH 4.79 mIU/L 0.40-4.50 LIPID PANEL - 09/07/19 08:19 CHOLESTEROL, TOTAL 189 mg/dL <200 HDL CHOLESTEROL 37 mg/dL > OR = 40 TRIGLYCERIDES 252 mg/dL <150 LDL-CHOLESTEROL 116 mg/dL (calc) NRG CHOL/HDLC RATIO 5.1 (calc) <5.0 NON HDL CHOLESTEROL 152 mg/dL (calc) <13 0 CMP - 09/07/19 08:19 GLUCOSE 740 mg/dL 65-139 UREA NITROGEN (BUN) 14 mg/dL 7-25 CREATININE 0.92 mg/dL 0.70-1.33 eGFR NON-AFR. SYRIAN 94 mL/min/1.73m2 > OR = 60 eGFR 109 mL/min/1.73m2 > OR = 60 BUN/CREATININE RATIO NOT APPLICABLE (calc) 6-22 SODIUM 123 mmol/L 135-146 POTASSIUM 4.7 mmol/L 3.5-5.3 CHLORIDE 86 mmol/L 98-110 CARBON DIOXIDE 22 mmol/L 20-32 CALCIUM 9.6 mg/dL 8.6-10.3 PROTEIN, TOTAL 7.8 g/dL 6.1-8.1 ALBUMIN 4.6 g/dL 3.6-5.1 GLOBULIN 3.2 g/dL (calc) 1.9-3.7 ALBUMIN/GLOBULIN RATIO 1.4 (calc) 1.0-2. 5 BILIRUBIN, TOTAL 1.3 mg/dL 0.2-1.2 ALKALINE PHOSPHATASE 72 U/L 35-144 AST 20 U/L 10-35 ALT 24 U/L 9-46 TSH - 09/07/19 08:19 TSH 4.23 mIU/L 0.40-4.50 Complete urinalysis with reflex to cultu re - 09/08/19 12:52 Urine color determination YELLOW NRG Urine clarity determination CLEAR NR G Urine pH measurement by test strip 6.0 5-9 Specific gravity of urine by test strip <= 1.016-1.022 Urine protein assay by test strip, semi-quantitative NEGATIVE NEGATIVE Urine glucose detection by automated test strip 3+ NEGATIVE Erythrocytes detection in urine sediment by light micr oscopy NEGATIVE NEGATIVE Urine ketones detection by automated test strip 1+ NEGATIVE Urine nitrite detection by test strip NEGATIVE NEGATIVE Urine total bilirubin detection by test strip NEGA TIVE NEGATIVE Urine urobilinogen measurement by automated test strip (mass/volume) 0.2 mg/dL < = 1.0 Urine leukocyte esterase detection by dipstick NEG ATIVE NEGATIVE Automated urine sediment erythrocyte cou nt by microscopy (number/high power field) RARE NRG Automated urine sediment leukocyte count by microscopy (number/high power field) NONE NRG Bacteria detection in urine sediment by light microsco py NEGATIVE NRG Squamous epithelial cells detection in u rine sediment by light microscopy NONE NRG Crystals detection in urine sediment by light microsco py NONE NRG Casts detection in urine sediment by light microscopy NONE NRG Mucus detection in urine sediment by light microscopy NEGATIVE NRG Complete urinalysis with reflex to culture NO NRG Capillary blood glucose measurement by g lucometer (mass/volume) - 09/08/19 13:49 Capillary blood glucose measurement by glucometer (mas s/volume) > mg/dL 70-110 Complete blood count (CBC) with automate d white blood cell (WBC) differential - 09/08/19 14:25 Blood leukocytes automated count (number/volume) 11.6 10*3/uL 4.3-11.0 Blood erythrocytes automated count (number/volume) 4.85 10*6/uL 4.35-5.85 Venous blood hemoglobin measurement (mass/volume) 15.5 g/dL 13.3-17.7 Blood hematocrit (volume fraction) 44 % 40-54 Automated erythrocyte mean corpuscular volume 91 [ foz_us] 80-99 Automated erythrocyte mean corpuscular h emoglobin (mass per erythrocyte) 32 pg 25-34 Automated erythrocyte mean corpuscular h emoglobin concentration measurement (mass/volume) 35 g/dL 32-36 Automated erythrocyte distribution width ratio 12. 1 % 10.0- 14.5 Automated blood platelet count (count/volume) 150 10*3/uL 130-400 Automated blood platelet mean volume measurement 11.3 [foz_us] 7.4-10.4 Automated blood neutrophils/100 leukocytes 78 % 42-75 Automated blood lymphocytes/100 leukocytes 15 % 12-44 Blood monocytes/100 leukocytes 6 % 0-12 Automated blood eosinophils/100 leukocytes 0 % 0-10 Automated blood basophils/100 leukocytes 0 % 0-10 Blood neutrophils automated count (number/volume) 9.0 10*3 1.8-7.8 Blood lymphocytes automated count (number/volume) 1.8 10*3 1.0-4.0 Blood monocytes automated count (number/volume) 0. 7 10*3 0.0-1.0 Automated eosinophil count 0.1 10*3/uL 0 .0-0.3 Automated blood basophil count (count/volume) 0.0 10*3/uL 0.0-0.1 Comprehensive metabolic panel - 09/08/19 14:25 Serum or plasma sodium measurement (moles/volume) 118 mmol/L 135-145 Serum or plasma potassium measurement (moles/volume) 5.3 mmol/L 3.6-5.0 Serum or plasma chloride measurement (moles/volume) 85 mmol/L 98-107 Carbon dioxide 18 mmol/L 21-32 Serum or plasma anion gap determination (moles/volume) 15 mmol/L 5-14 Serum or plasma urea nitrogen measurement (mass/volume ) 18 mg/dL 7-18 Serum or plasma creatinine measurement (mass/volume) 1.31 mg/dL 0.60-1.30 Serum or plasma urea nitrogen/creatinine mass ratio 14 NRG Serum or plasma creatinine measurement w ith calculation of estimated glomerular filtration rate 57 NRG Serum or plasma glucose measurement (mass/volume) 728 mg/dL 70-105 Serum or plasma calcium measurement (mass/volume) 9.3 mg/dL 8.5-10.1 Serum or plasma total bilirubin measurement (mass/volu me) 1.0 mg/dL 0.1-1.0 Serum or plasma alkaline phosphatase jacquie surement (enzymatic activity/volume) 77 U/L 40-136 Serum or plasma aspartate aminotransfera se measurement (enzymatic activity/volume) 24 U/L 5-34 Serum or plasma alanine aminotransferase measurement (enzymatic activity/volume) 33 U/L 0-55 Serum or plasma protein measurement (mass/volume) 7.9 g/dL 6.4-8.2 Serum or plasma albumin measurement (mass/volume) 4.2 g/dL 3.2-4.5 CALCIUM CORRECTED 9.1 mg/dL 8.5-10.1 Capillary blood glucose measurement by g lucometer (mass/volume) - 09/08/19 15:29 Capillary blood glucose measurement by glucometer (mas s/volume) 567 mg/dL 70-110 Capillary blood glucose measurement by g lucometer (mass/volume) - 09/25/19 18:49 Capillary blood glucose measurement by glucometer (mas s/volume) 285 mg/dL 70-110 Capillary blood glucose measurement by g lucometer (mass/volume) - 09/25/19 19:07 Capillary blood glucose measurement by glucometer (mas s/volume) 255 mg/dL 70-110 Encounters ACCT No. Visit Date/Time Discharge Status Pt. Type Provider Facility Loc./Unit Complaint [id number] 07/03/2014 14:09:00 07/03/2014 23:59: 59 CLS Outpatient SLY MORRO RHETT R [id number] 06/24/2014 07:58:00 06/24/2014 23:59: 59 CLS Outpatient JELLY HEART APRNINA R [id number] 03/14/2014 10:16:00 03/14/2014 23:59: 59 CLS Outpatient SLY MORRO RHETT R [id number] 03/07/2014 07:54:00 03/07/2014 23:59: 59 CLS Outpatient RHETT HEART APRN R [id number] 02/21/2014 07:49:00 02/21/2014 23:59: 59 CLS Outpatient SLY MORRO RHETT R [id number] 12/04/2013 00:00:00 12/04/2013 23:59: 59 CLS Outpatient SLY MORRO RHETT R [id number] 10/31/2013 11:13:00 10/31/2013 23:59: 59 CLS Outpatient SLY GONZALEZAnnalise RHETT R [id number] 07/31/2013 10:49:00 07/31/2013 23:59: 59 CLS Outpatient SLY HOOKER RHETT R [id number] 07/06/2013 09:40:00 07/06/2013 23:59: 59 CLS Outpatient MALCOLM HERNÁNDEZ DO [id number] 06/18/2013 10:41:00 06/18/2013 23:59: 59 CLS Outpatient MALCOLM HERNÁNDEZ DO [id number] 09/25/2019 18:39:00 020 19:29:00 DIS Emergency GRISELDA MORALES APRN [facility] ER HIGH BS LEVELS [id number] 09/08/2019 11:43:00 020 16:02:00 DIS Outpatient LUIS ANTONIO VALENTINE [facility] ER LOST CONTROL OF BLADDER [id number] 05/25/2017 09:15:00 017 23:59:59 CLS Outpatient ALEN NG MD [facility] RAD CHRONIC HEPATITIS C WO HEPATIC COMA [id number] 12/20/2016 09:21:00 017 23:59:59 CLS Outpatient SRUTHI FONTANA, GERARDO [facility] RAD DDU [id number] 01/03/2014 09:58:00 014 23:59:59 CLS Outpatient [id number] 09/13/2019 11:40:00 09/13/2019 23:59:5 9 CLS Outpatient TESS FONTANA, CYRUS [facility] [id number] 09/07/2019 08:00:00 Document Registration [id number] 05/25/2017 12:40:00 Document Registration [id number] 05/18/2017 12:20:00 Document Registration
== END 2019-09-25 19:29 | disposition home or self-care (01) ==
LOC: EDUNIT# 18:38 → ER 18:39
DX: E11.65 Type 2 diabetes mellitus with hyperglycemia (principal); I25.2 Old myocardial infarction; F17.210 Nicotine dependence, cigarettes, uncomplicated
CPT/HCPCS: 82962

== ENCOUNTER 2021-11-05 07:51 | Outpatient (CLI) | payer OTHER ==
[~2021-11-05] VITALS: Ht 177.8 cm; Wt 141.5 kg
[2021-11-05] MEDS ORDERED: LISI20TA26 PO (08:41)
== END 2021-11-05 12:42 | disposition home or self-care (01) ==
LOC: PREOP 07:51
PROVIDERS: ATTEND Surgery
DX: Z01.818 Encounter for other preprocedural examination (principal)

== ENCOUNTER 2021-11-17 12:44 | Day surgery (SDC) | payer OTHER ==
[~2021-11-17] VITALS: Ht 178 cm; Wt 141.5 kg
[~2021-11-17 12:44] MED LIST: LISI20TA26 PO
[2021-11-17] MEDS ORDERED: LACTATED RINGERS 1,000 ML IV ONE (12:50)
[2021-11-17 13:10] VITALS: BP 117/35
[2021-11-17] MEDS ORDERED: HURRICAINE EXT TUBE (BENZOCAINE) XX PRN (13:15)
[2021-11-17] MEDS ORDERED: LACTATED RINGERS 1,000 ML IV STA (13:15)
[2021-11-17] MEDS ORDERED: MIDAZOLAM 2 MG/2 ML (VERSED) VIAL ONE (14:15)
[2021-11-17] MEDS ORDERED: PROPOFOL INJECTION 50 ML IV ONE ×2 (14:15→14:46)
--- NOTE | 2021-11-17 14:17 | Progress Note-Pre Operative ---
Pre-Operative Progress Note H&P Reviewed The H&P was reviewed, patient examined and no changes noted. Date Seen by Provider: Nov 17, 2021 Time Seen by Provider: 14:16 Date H&P Reviewed: Nov 17, 2021 Time H&P Reviewed: 14:16 Pre-Operative Diagnosis: Chronic gastritis, h/o colon polyp, family history of colon cancer NINI MERAZ DO Nov 17, 2021 14:17
[2021-11-17 15:15] VITALS: BP 103/61
[2021-11-17 15:18] VITALS: BP 103/61
[2021-11-17] MEDS ORDERED: PANT40TA2 PO (15:20)
--- NOTE | 2021-11-17 15:20 | Progress Note-Post Operative ---
Post-Operative Progess Note Surgeon (s)/Dye Room Helper (s) Surgeon NINI MERAZ DO Dye Room Helper: none Pre-Operative Diagnosis Chronic gastritis, h/o colon polyp, family history of colon cancer Post-Operative Diagnosis Gastritis with small serration of the antrum, small hiatal hernia. Diverticulosis, colon polyps x5. Procedure & Operative Findings Date of Procedure 11/17/21 Procedure Performed/Findings EGD with biopsies. Colonoscopy with hot snare polypectomy x1 and hot biopsy p olypectomy x4. Anesthesia Type per STORE STOCK HELP Estimated Blood Loss Estimated blood loss (mL): none Specimens/Packing Specimens Removed Antrum x1, body x1, GE junction x1. Ascending snare polyp x1, ascending biopsy polyp x1. Rectal polyp x3. NINI MERAZ DO Nov 17, 2021 15:20
--- NOTE | 2021-11-17 15:21 | Discharge Inst-Simple/Standard ---
Discharge Inst-Standard Discharge Medications New, Converted or Re-Newed RX: Transmitted to Pharmacy Patient Instructions/Follow Up Plan of Care/Instructions/FU: 2 weeks Kerri Activity as Tolerated: Yes Discharge Diet: Regular Diet (High fiber) NINI MERAZ DO Nov 17, 2021 15:21
--- NOTE | 2021-11-17 15:25 | Anesthesia-General Post-Op ---
MAC Patient Condition Mental Status/LOC: Same as Preop Cardiovascular: Satisfactory Nausea/Vomiting: Absent Respiratory: Satisfactory Pain: Controlled Complications: Absent Post Op Complications Complications None Follow Up Care/Instructions Patient Instructions None needed. Anesthesiology Discharge Order Discharge Order Patient is doing well, no complaints, stable vital signs, no apparent adverse anesthesia problems. No complications reported per nursing. PAOLO KEANE CRNA Nov 17, 2021 15:25
[2021-11-17 15:40] VITALS: BP 91/69
--- NOTE | 2021-11-17 20:40 | OPERATIVE REPORT ---
DATE OF SERVICE: 11/17/2021 PREOPERATIVE DIAGNOSES: History of poor colon prep, family history of colon cancer, chronic gastritis. POSTOPERATIVE DIAGNOSES: Gastritis with small ulceration of the antrum, small hiatal hernia, colon polyps, and diverticulosis. PROCEDURE: EGD with biopsies, colonoscopy with snare polypectomy x1. Hot biopsy polypectomy x4. SURGEON: Nini Manning DO ANESTHESIA: Per ASSISTANT PROFESSOR OF SPANISH. ESTIMATED BLOOD LOSS: None. COMPLICATIONS: None. INDICATIONS: The patient is a 55-year-old male with the above needing EGD and colonoscopy for further evaluation. He understands risks and benefits of procedure and wishes to proceed. Consent was signed in the chart. DESCRIPTION OF PROCEDURE: The patient was taken to the endoscopy suite, placed in left lateral recumbent position. Timeout was performed. Scope was inserted in the mouth, down the esophagus, stomach and into the duodenum without difficulty. There were no polyps, masses or ulcerations within the duodenum. Scope was slowly retracted back into the stomach where it was further insufflated. Erythematous changes and small ulceration present in the antrum, which biopsy of these areas were obtained. Biopsy of the body was obtained as well due to the gastritis appearance. Scope was retroflexed noting a very small hiatal hernia, no other pathology noted. Scope was returned to its normal position, slowly withdrawn to distal esophagus. No polyps, masses or ulcerations. Biopsy of GE junction was obtained. The distal esophagus seemed to have a slight white grayish coating. Scope was slowly retracted back to completely remove, noting no other pathology. Digital rectal exam was performed. No palpable polyps, masses or ulcerations. Scope was inserted in the rectum, advanced all the way to cecum with minimal difficulty. Prep was adequate. No polyps, masses, or ulcerations in the cecum. In the ascending colon, a larger polyp present, which snare polypectomy was performed. This was able to be obtained for specimen. Scope was then continuously retracted back. There was another ascending colon polyp, which hot biopsy polypectomy was performed. The scope was then continued to be slowly retracted back. No other polyps, masses, or ulcerations within the ascending, transverse, descending, and sigmoid colon. Once in the sigmoid, there was moderate amount of diverticulosis present. In the rectum, three larger polyps were present, which hot biopsy polypectomy was performed. Hot biopsy polypectomy was performed on all three. Scope was retroflexed noting no other pathology. Scope was returned to its normal position, slowly withdrawn until completely removed, noting no other pathology. The patient tolerated procedure well without any complications, taken to recovery room in stable condition. RECOMMENDATIONS: We would recommend repeat colonoscopy in one year for reevaluation due to the size of polyps, any issues before that be seen at that time. The patient with gastritis appearance. Await biopsy results. We will start him on Protonix 40 mg daily to see if he has any improvement and also await biopsy results. Job ID: [id number] DocumentID: [id number] Dictated Date: 11/17/2021 15:20:30 Printing Press Operator Apprentice Date: 11/17/2021 20:39:29 Dictated By: NINI MANNING DO
== END 2021-11-17 15:50 | disposition home or self-care (01) ==
LOC: ENDO 12:44
PROVIDERS: ATTEND Surgery
DX: K29.50 Unspecified chronic gastritis without bleeding (principal); D12.2 Benign neoplasm of ascending colon; K62.1 Rectal polyp; K44.9 Diaphragmatic hernia without obstruction or gangrene; K57.30 Diverticulosis of large intestine without perforation or abscess without bleeding; K20.90 Esophagitis, unspecified without bleeding; K40.90 Unilateral inguinal hernia, without obstruction or gangrene, not specified as recurrent; E11.9 Type 2 diabetes mellitus without complications; F17.210 Nicotine dependence, cigarettes, uncomplicated; Z68.41 Body mass index [BMI] 40.0-44.9, adult; Z76.89 Persons encountering health services in other specified circumstances; Z79.899 Other long term (current) drug therapy; Z80.0 Family history of malignant neoplasm of digestive organs
CPT/HCPCS: 82947; 88305

== ENCOUNTER 2023-01-05 05:37 | Outpatient (CLI) | payer OTHER ==
[~2023-01-05] VITALS: Ht 177.8 cm; Wt 133.4 kg
[~2023-01-05 05:37] MED LIST changes: +PANT40TA2 PO
[2023-01-06] MEDS ORDERED: METF500S7 PO (08:31)
== END 2023-01-06 08:37 | disposition home or self-care (01) ==
LOC: PREOP 05:37
PROVIDERS: ATTEND Surgery
DX: Z01.818 Encounter for other preprocedural examination (principal)

== ENCOUNTER 2023-01-14 11:54 | Day surgery (SDC) | payer OTHER ==
[~2023-01-14] VITALS: Ht 177.8 cm; Wt 133.4 kg
[~2023-01-14 11:54] MED LIST changes: +METF500S7 PO
[2023-01-14] MEDS ORDERED: LACTATED RINGERS 1,000 ML IV STA (11:59)
[2023-01-14 12:15] VITALS: BP 126/98
[2023-01-14 13:32] LABS: AMPHETAMINE SCREEN, URINE POSITIVE (NEGATIVE); BARBITURATE SCREEN URINE NEGATIVE (NEGATIVE); BENZODIAZEPINES SCREEN URINE NEGATIVE (NEGATIVE); CANNABINOID SCREEN, URINE POSITIVE (NEGATIVE); COCAINE SCREEN URINE NEGATIVE (NEGATIVE); METHADONE STAT NEGATIVE (NEGATIVE); OPIATE SCREEN URINE NEGATIVE (NEGATIVE); OXYCODONE STAT NEGATIVE (NEGATIVE); PROPOXYPHENE STAT NEGATIVE (NEGATIVE); TRICYCLIC ANTIDEPRESSANTS SCRE NEGATIVE (NEGATIVE)
[2023-01-14 13:50] VITALS: BP 126/98
== END 2023-01-14 13:53 | disposition home or self-care (01) ==
LOC: ENDO 11:54
PROVIDERS: ATTEND Surgery
DX: Z12.11 Encounter for screening for malignant neoplasm of colon (principal); Z53.09 Procedure and treatment not carried out because of other contraindication
CPT/HCPCS: 80306; 82947